=== PATIENT | male | born 1960 | race Caucasian/White ===

== ENCOUNTER 2016-10-19 15:38 | Emergency (ER) | payer OTHER ==
[~2016-10-19] VITALS: Ht 182.9 cm; Wt 103.0 kg
[2016-10-19 15:41] VITALS: TEMP 37.4; Ht 182.9 cm; Wt 103.0 kg
--- NOTE | 2016-10-19 16:10 | EMERGENCY ROOM VISIT NOTE ---
History First contact with patient: 15:45 Chief Complaint: CHEST PAIN Stated Complaint: CHEST PAINS, LEFT SIDE PAINS, COUGH Nursing Triage Summary: constant chest pain in the center that goes into the left side of ribs and into his right side of his neck today History of Present Illness The patient is a 55 year old male who presents to the Emergency Room with complaints of substernal chest pain which began yesterday. The patient reports that he first developed a dull pain in the center of his chest yesterday while he was watching TV. He reports he has had pain before which has resolved on its own, so he initially was not concerned about the pain. The patient reports that while he was at work today, he began to develop pain in the right side of his neck. The chest pain has been constant since yesterday. There is no radiation to the arms or jaw. He does report a pain in the left side of his back which is not unusual for him. The patient denies any cardiac history. He does have a family history of CHF and his father and mitral stenosis and his mother. The patient is not diabetic and he denies any hypertension or hyperlipidemia. He is otherwise healthy and does not take any medications daily. He does report a history of intermittent atrial fibrillation, but does not take any anticoagulation or medications for rate control. The patient is a smoker. He denies any specific shortness of breath, palpitations, lightheadedness, nausea, vomiting, abdominal pain, headache or neck pain. Review of Systems A complete 10-point Review of Systems was discussed with the patient, with pertinent positives and negatives listed in the History of Present Illness. All remaining Review of Systems questions can be considered negative unless otherwise specified. Social History Smoking Status: Current Every Day Smoker Marital Status: single Current/Historical Medications Scheduled Ibuprofen (Advil), 800 MG PO PRN UD Allergies Coded Allergies: No Known Allergies (Unverified , 04/22/08) Physical Exam Vital Signs Date Time Temp Pulse Resp B/P Pulse Ox O2 Delivery O2 Flow Rate FiO2 10/19/16 17:15 134/89 10/19/16 17:09 92 94 Room Air 10/19/16 16:43 93 10/19/16 15:41 37.4 98 20 149/78 95 Physical Exam VITALS: Vitals are noted on the nurse's note and reviewed by myself. Vital signs stable. GENERAL: This is a 55-year-old male, in no acute distress, nondiaphoretic, well- developed well-nourished. SKIN: Capillary reflex less than 2 seconds. HEENT: Normocephalic. PERRLA. EOMI. Nares patent. Mucous membranes moist. Neck is supple without nuchal rigidity. HEART: Regular rate and rhythm without murmurs gallops or rubs. LUNGS: Clear to auscultation bilaterally without wheezes, rales or rhonchi. No retractions or accessory muscle use. ABDOMEN: Positive bowel sounds x 4. Soft, nontender to palpation. MUSCULOSKELETAL: No tenderness to examination. NEURO: Patient was alert and oriented to person place and time. Normal sensation to light and sharp touch. Medical Decision & Procedures ER Provider Diagnostic Interpretation: CHEST ONE VIEW PORTABLE FINDINGS: The bones soft tissues and hemidiaphragms are normal. The cardiomediastinal silhouette is normal. The lungs are clear. The pulmonary vasculature is normal. IMPRESSION: Negative chest. Laboratory Results 10/19/16 15:54 Red Blood Count 5.21, Mean Corpuscular Volume 82.9, Mean Corpuscular Hemoglobin 29.2, Mean Corpuscular Hemoglobin Concent 35.2, Mean Platelet Volume 10.6, Neutrophils (%) (Auto) 75.9, Lymphocytes (%) (Auto) 13.2, Monocytes (%) (Auto) 8.9, Eosinophils (%) (Auto) 1.5, Basophils (%) (Auto) 0.2, Neutrophils # (Auto) 10.76, Lymphocytes # (Auto) 1.88, Monocytes # (Auto) 1.27, Eosinophils # (Auto) 0.22, Basophils # (Auto) 0.03 10/19/16 15:54 Test 10/19/16 15:54 10/19/16 16:15 White Blood Count 14.20 K/uL (4.8-10.8) Red Blood Count 5.21 M/uL (4.7-6.1) Hemoglobin 15.2 g/dL (14.0-18.0) Hematocrit 43.2 % (42-52) Mean Corpuscular Volume 82.9 fL (80-100) Mean Corpuscular Hemoglobin 29.2 pg (25-34) Mean Corpuscular Hemoglobin Concent 35.2 g/dl (32-36) Platelet Count 201 K/uL (130-400) Mean Platelet Volume 10.6 fL (7.4-10.4) Neutrophils (%) (Auto) 75.9 % Lymphocytes (%) (Auto) 13.2 % Monocytes (%) (Auto) 8.9 % Eosinophils (%) (Auto) 1.5 % Basophils (%) (Auto) 0.2 % Neutrophils # (Auto) 10.76 K/uL (1.4-6.5) Lymphocytes # (Auto) 1.88 K/uL (1.2-3.4) Monocytes # (Auto) 1.27 K/uL (0.11-0.59) Eosinophils # (Auto) 0.22 K/uL (0-0.5) Basophils # (Auto) 0.03 K/uL (0-0.2) RDW Standard Deviation 38.4 fL (36.4-46.3) RDW Coefficient of Variation 12.8 % (11.5-14.5) Immature Granulocyte % (Auto) 0.3 % Immature Granulocyte # (Auto) 0.04 K/uL (0.00-0.02) Anion Gap 11.0 mmol/L (3-11) Est Creatinine Clear Calc Drug Dose 96.4 ml/min Estimated GFR () 88.4 Estimated GFR (Non- 76.2 BUN/Creatinine Ratio 9.5 (10-20) Calcium Level 8.8 mg/dl (8.5-10.1) Total Bilirubin 0.6 mg/dl (0.2-1) Aspartate Amino Transf (AST/SGOT) 15 U/L (15-37) Alanine Aminotransferase (ALT/SGPT) 24 U/L (12-78) Alkaline Phosphatase 81 U/L (45-117) Total Creatine Kinase 123 U/L (39-308) Creatine Kinase MB 1.9 ng/ml (0.5-3.6) Creatine Kinase MB Ratio 1.5 (0-3.0) Total Protein 7.8 gm/dl (6.4-8.2) Albumin 3.7 gm/dl (3.4-5.0) Globulin 4.1 gm/dl (2.5-4.0) Albumin/Globulin Ratio 0.9 (0.9-2) Bedside D-Dimer 236 ng/mlFEU (0-450) Bedside Troponin I 0.000 ng/ml (0-0.045) ECG Rate (beats per minute): 100 Rhythm: normal sinus Findings: no acute ischemic change, no ectopy, other (normal axis) Comparison ECG Date: rate has increased by 34 bpm; otherwise no change from 10/22 Medical Decision Differential diagnosis includes acute coronary syndrome, pulmonary embolism, pneumothorax, pericarditis, myocarditis, endocarditis, anxiety, musculoskeletal pain, GERD, costochondritis, among others. The patient was evaluated as above. Labs were drawn and IV access was obtained. Imaging studies were performed and read by radiology as above. The patient was reassessed multiple times during their stay in the emergency department and remained in stable condition. The patient is a 55-year-old male who presents today complaining of substernal chest pain. Labs revealed no anemia or concerning electrolyte abnormalities. He does have a mild leukocytosis of unclear significance. The patient is afebrile and not complaining of flulike symptoms or cough. EKG was interpreted by myself and showed a normal sinus rhythm without evidence of ischemia or ectopy. Chest x-ray was unremarkable. Troponin was not elevated. D-dimer was not elevated. The patient has no significant cardiac history and does not have significant risk factors. His HEART score was calculated and was found to be 2 , putting the patient at low risk for cardiac event. I did discuss options of care with the patient including observation for further testing versus discharge home with close follow-up with his primary care provider. The patient preferred discharged home and I do feel this is reasonable. He was instructed on worrisome symptoms which would necessitate return to the emergency department sooner. He will follow-up with his primary care provider this week. Based on the patient's presentation, lab results, and imaging studies, I feel the patient is stable for outpatient treatment. Discharge instructions were reviewed with the patient. The patient's case was reviewed with Dr. Patel, ED attending physician, who agreed with my assessment and treatment plan. The patient verbalized understanding of my assessment and treatment plan and was discharged home in good condition. Impression Primary Impression: Substernal precordial chest pain Departure Information Dispostion Home / Self-Care Condition GOOD Referrals No Doctor, Assigned (PCP) Patient Instructions My [facility] Additional Instructions You have been treated in the Emergency Department for your Chest Pain. Laboratory results and Imaging Studies have ruled out any acute cardiac or pulmonary cause of your chest pain. For pain control, you can use the following [id number]-aej-[id number] medicines (if >12 yo): - Regular strength (325mg/tab) Tylenol (acetaminophen) 2 tabs every 4-6 hours as needed. Do not exceed 12 tablets in a 24 hour period. Avoid taking more than 4 grams (4000 mg) of Tylenol per day. This includes any other sources of acetaminophen you may take on a regular basis. - Regular strength (200 mg/tab) Advil (ibuprofen) 1-2 tabs every 4-6 hours as needed. Do not exceed a dose of 3200 mg per day. You should schedule a follow-up appointment with your Primary Care Provider in 2 -3 days for further evaluation from today's Emergency Department visit. Return to the Emergency Department if your current symptoms worsen despite treatment course outlined above, or if you develop any of the following symptoms : worsening chest pain, associated jaw/arm pain, nausea, dizziness, shortness of breath, bloody cough, or fainting.
[2016-10-19 16:12] LABS: BASO % 0.2 %; BASO ABS # 0.03 K/uL (0-0.2); COMPLETE YES; EOS % 1.5 %; HEMATOCRIT 43.2 % (42-52); IG% 0.3 %; LYMPH % 13.2 %; LYMPH ABS # 1.88 K/uL (1.2-3.4); MEAN CELL VOLUME 82.9 fL (80-100); MEAN CORPUSCULAR HEMOGLOBIN 29.2 pg (25-34); MEAN CORPUSCULAR HGB CONC 35.2 g/dl (32-36); MEAN PLATELET VOLUME 10.6 fL (7.4-10.4); MONO % 8.9 %; NEUT % 75.9 %; PLATELET COUNT 201 K/uL (130-400); RED BLOOD COUNT 5.21 M/uL (4.7-6.1)
--- NOTE | 2016-10-19 16:14 | DIAGNOSTIC IMAGING REPORT ---
CHEST ONE VIEW PORTABLE CLINICAL HISTORY: substernal chest pain dyspnea COMPARISON STUDY: No previous studies for comparison. FINDINGS: The bones soft tissues and hemidiaphragms are normal. The cardiomediastinal silhouette is normal. The lungs are clear. The pulmonary vasculature is normal. IMPRESSION: Negative chest. Electronically signed by: Benjamín Valero M.D. 10/19/2016 4:13 PM Dictated Date/Time: 10/19/2016 4:12 PM
[2016-10-19 16:26] LABS: BUN/CREATININE RATIO 9.5 (10-20); CALCIUM 8.8 mg/dl (8.5-10.1); CREATININE 1.1 mg/dl (0.60-1.40); POTASSIUM 3.8 mmol/L (3.5-5.1)
[2016-10-19] MEDS ORDERED: IBUP-1050 PO (16:29)
[2016-10-19 16:30] LABS: ALB/GLOB RATIO 0.9 (0.9-2); CKMB/CK RATIO 1.5 (0-3.0)
[2016-10-19 17:09] VITALS: PULSE 92; O2SAT 94
[2016-10-19 17:15] VITALS: BP 134/89
== END 2016-10-19 17:16 | disposition home or self-care (01) ==
LOC: C.EDB 15:39
DX: R07.2 Precordial pain (principal); F17.200 Nicotine dependence, unspecified, uncomplicated

== ENCOUNTER 2019-12-29 23:52 | Inpatient (IN) ==
[2019-12-30] MEDS ORDERED: fentaNYL citrate 100 MCG/2 ML VIAL IV STA ×2 (00:10→01:57)
--- NOTE | 2019-12-30 00:17 | Emergency Department Note ---
History of Present Illness General Chief complaint: Chest Pain Stated complaint: CHEST PAIN Time Seen by Provider: 12/30/19 00:01 History of Present Illness This is a 59-year-old male that presents to the emergency department via ambulance with complaints of "chest pain". Patient notes that he woke up yesterday around 3-4 AM and had midsternal chest pain. It does not radiate. It was a 7/10. It then persisted throughout the day and then this evening an ambulance was summoned and in route he was given a full-strength aspirin as well as 2 nitroglycerin. The pain was alleviated with nitroglycerin. He notes that the pain then progressed to a 4 out of 10 and is now currently a 6/10. He denies any personal history of PR or PE. He denies any family history of PR prior to age 65. No fevers, chills or cough. He denies any excessive alcohol use. 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 Beliefs That Will Affect Care: None Current Living Situation: Alone Other Information That Helps Us Care for You: No Feels Safe at Home: Yes Safety Concerns: Feels Safe At This Time Smoking Status: Current every day smoker Tobacco Type: cigarettes ; Hx Alcohol Use: No Hx Substance Use: No Review of Systems A total of 10 systems reviewed and were otherwise negative Physical Exam Vital Signs Vital Signs - 24 hr 12/30/19 00:14 12/30/19 00:25 12/30/19 01:18 Temperature 36.8 C Temperature Source Oral Pulse Rate 80 83 Pulse Rate [Right Finger] 74 Respiratory Rate 18 21 18 Respiratory Depth Normal Normal Blood Pressure 120/73 127/73 Blood Pressure [Right Arm] 127/75 Blood Pressure Mean 88 85 Blood Pressure Mean [Right Arm] 92 Blood Pressure Position Lying Blood Pressure Position [Right Arm] Lying Pulse Oximetry 95 95 95 Oxygen Delivery Method Room Air Room Air Sepsis Recent Fever Within 48 Hours No Sepsis New/Unexplained Change in Mental Status No Sepsis Action Taken by Nursing No Action Required 12/30/19 02:58 Temperature Temperature Source Pulse Rate Pulse Rate [Right Finger] 70 Respiratory Rate 16 Respiratory Depth Normal Blood Pressure Blood Pressure [Right Arm] 123/69 Blood Pressure Mean Blood Pressure Mean [Right Arm] 87 Blood Pressure Position Blood Pressure Position [Right Arm] Lying Pulse Oximetry 95 Oxygen Delivery Method Room Air Sepsis Recent Fever Within 48 Hours Sepsis New/Unexplained Change in Mental Status Sepsis Action Taken by Nursing VITAL SIGNS - Vital signs and nursing notes were reviewed. Stable and afebrile. GENERAL -59-year-old male appearing his stated age who is in no acute distress. Communicates well with provider and answers questions appropriately. SKIN - Without rashes. No meningeal or petechial rash. HEAD - NC/AT. EYES - PERRL with EOMI bilaterally. Sclera anicteric. EARS - No deformities of external structures noted on gross examination bilaterally. NOSE - Midline and without cyanosis. No epistaxis or purulent drainage noted. MOUTH/OROPHARYNX - Without perioral cyanosis. NECK - Neck with FROM. No nuchal rigidity. LUNGS - Chest wall symmetric without accessory muscle use, intercostals retracti ons, or central cyanosis. Normal vesicular breath sounds CTA B/L. No wheezes, rales, or rhonchi appreciated. CARDIAC - RRR with S1/S2. No murmur, rubs, or gallops appreciated. ABDOMEN - Abdominal contour normal without pulsations or visible masses. BS normoactive all four quadrants. No tenderness, palpable masses, hepatosplenomegaly, or ascites noted. EXTREMITIES - No clubbing or peripheral cyanosis. No pretibial edema present. +5/5 strength noted in UE/LE bilaterally. NEUROLOGIC - Cranial nerves II through XII grossly intact. PSYCH - A&O, and cooperates fully with examiner. Pt is very pleasant and interacts well with examiner. Course Administered Medications Ioversol (Optiray 320 100ml) 93 ml IV ONCE PRN PRN Reason: Interaction Checking Stop: 01/03/20 04:03 Last Admin: 12/30/19 04:04 Dose: 93 ml Documented by: [id number] Discontinued Medications Fentanyl Citrate (Fentanyl Citrate) 50 mcg IV NOW STA Stop: 12/30/19 00:11 Last Admin: 12/30/19 00:24 Dose: 50 mcg Documented by: [id number] Fentanyl Citrate (Fentanyl Citrate) 50 mcg IV NOW STA Stop: 12/30/19 01:58 Last Admin: 12/30/19 02:02 Dose: 50 mcg Documented by: [id number] Medical Decision Making Laboratory Data Result diagrams: 12/29/19 23:45 12/29/19 23:45 Lab Results 12/29/19 12/29/19 12/29/19 Range/Units 23:45 23:45 23:45 WBC 11.66 H (4.8-10.8) K/uL RBC 5.35 (4.7-6.1) M/uL Hgb 15.4 (14.0-18.0) g/dL Hct 45.8 (42-52) % MCV 85.6 (80-100) fL MCH 28.8 (25-34) pg MCHC 33.6 (32-36) g/dL RDW Std Deviation 39.8 (36.4-46.3) fL RDW Coeff of Kosta 12.7 (11.5-14.5) % Plt Count 217 (130-400) K/uL MPV 10.6 H (7.4-10.4) fL Immature Gran % (Auto) 0.2 % Neut % (Auto) 76.5 % Lymph % (Auto) 13.7 % Caroline % (Auto) 7.3 % Eos % (Auto) 2.1 % Baso % (Auto) 0.2 % Immature Gran # (Auto) 0.02 (0.00-0.02) K/uL Neut # (Auto) 8.93 H (1.4-6.5) K/uL Lymph # (Auto) 1.60 (1.2-3.4) K/uL Caroline # (Auto) 0.85 H (0.11-0.59) K/uL Eos # (Auto) 0.24 (0-0.5) K/uL Baso # (Auto) 0.02 (0-0.2) K/uL PT 10.6 (9.0-12.0) Seconds INR 1.0 (0.9-1.1) APTT 33.0 H (21.0-31.0) Seconds PTT Ratio 1.2 D-Dimer 440 (0-500) ug/L FEU Sodium 138 (136-145) mmol/L Potassium 3.9 (3.5-5.1) mmol/L Chloride 105 (98-107) mmol/L Carbon Dioxide 24 (21-32) mmol/L Anion Gap 9.0 (3-11) BUN 12 (7-18) mg/dl Creatinine 0.96 (0.6-1.4) mg/dl Est Cr Clr Drug Dosing 106.4 ml/min Est GFR ( Amer) 101.3 Est GFR (Non-Af Amer) 87.4 BUN/Creatinine Ratio 12.9 (10-20) Glucose 140 H (70-99) mg/dl Calcium 8.8 (8.5-10.1) mg/dl Magnesium 2.1 (1.8-2.4) mg/dl Total Bilirubin 0.5 (0.2-1) mg/dl AST 22 (15-37) U/L ALT 28 (12-78) U/L Alkaline Phosphatase 82 (45-117) U/L Troponin I < 0.015 (0-0.045) ng/ml Total Protein 7.4 (6.4-8.2) gm/dl Albumin 3.6 (3.4-5.0) gm/dl Globulin 3.8 (2.5-4.0) gm/dl Albumin/Globulin Ratio 0.9 (0.9-2) Lipase 3666 H (73-393) U/L TSH 1.090 (0.300-4.500) uIu/ml Urine Color Urine Appearance (Clear) Urine pH (4.5-7.5) Ur Specific [place] (1.000-1.030) Urine Protein (Negative) Urine Glucose (UA) (Negative) Urine Ketones (Negative) Urine Blood (Negative) Urine Nitrite (Negative) Urine Bilirubin (Negative) Urine Urobilinogen (Negative) Ur Leukocyte Esterase (Negative) 12/30/19 Range/Units 02:25 WBC (4.8-10.8) K/uL RBC (4.7-6.1) M/uL Hgb (14.0-18.0) g/dL Hct (42-52) % MCV (80-100) fL MCH (25-34) pg MCHC (32-36) g/dL RDW Std Deviation (36.4-46.3) fL RDW Coeff of Kosta (11.5-14.5) % Plt Count (130-400) K/uL MPV (7.4-10.4) fL Immature Gran % (Auto) % Neut % (Auto) % Lymph % (Auto) % Caroline % (Auto) % Eos % (Auto) % Baso % (Auto) % Immature Gran # (Auto) (0.00-0.02) K/uL Neut # (Auto) (1.4-6.5) K/uL Lymph # (Auto) (1.2-3.4) K/uL Caroline # (Auto) (0.11-0.59) K/uL Eos # (Auto) (0-0.5) K/uL Baso # (Auto) (0-0.2) K/uL PT (9.0-12.0) Seconds INR (0.9-1.1) APTT (21.0-31.0) Seconds PTT Ratio D-Dimer (0-500) ug/L FEU Sodium (136-145) mmol/L Potassium (3.5-5.1) mmol/L Chloride (98-107) mmol/L Carbon Dioxide (21-32) mmol/L Anion Gap (3-11) BUN (7-18) mg/dl Creatinine (0.6-1.4) mg/dl Est Cr Clr Drug Dosing ml/min Est GFR ( Amer) Est GFR (Non-Af Amer) BUN/Creatinine Ratio (10-20) Glucose (70-99) mg/dl Calcium (8.5-10.1) mg/dl Magnesium (1.8-2.4) mg/dl Total Bilirubin (0.2-1) mg/dl AST (15-37) U/L ALT (12-78) U/L Alkaline Phosphatase (45-117) U/L Troponin I (0-0.045) ng/ml Total Protein (6.4-8.2) gm/dl Albumin (3.4-5.0) gm/dl Globulin (2.5-4.0) gm/dl Albumin/Globulin Ratio (0.9-2) Lipase (73-393) U/L TSH (0.300-4.500) uIu/ml Urine Color Yellow Urine Appearance Clear (Clear) Urine pH 5.0 (4.5-7.5) Ur Specific [place] 1.023 (1.000-1.030) Urine Protein Negative (Negative) Urine Glucose (UA) Negative (Negative) Urine Ketones Negative (Negative) Urine Blood Negative (Negative) Urine Nitrite Negative (Negative) Urine Bilirubin Negative (Negative) Urine Urobilinogen Negative (Negative) Ur Leukocyte Esterase Negative (Negative) Imaging Data My Impression: Interstitial prominence noted in the lower lobes. No definite infiltrate or consolidation. No pneumothorax. Radiologist's Impression: US GALLBLADDER: No stones in the gallbladder. No acute cholecystitis. No biliary dilatation. Hepatic steatosis. Unremarkable right kidney. Pancreas obscured by bowel gas. Radiologist: Daniel Ferrer MD Study ready at 01:50 and initial results transmitted at 01:57 MDM Narrative Patient was seen and evaluated as above in room C5. Review was performed of nursing notes and vital signs. I did review pertinent previous visits and patient history. After obtaining a thorough history and physical examination the above work up was performed. He presents to us today with chest pain. Initially concern was for ACS given the presentation however other etiologies were certainly entertained. EKG was performed on arrival and reveals normal sinus rhythm at a rate of [address]pm[address] elevation. No evidence of PR. Troponin is negative. Mild leukocytosis of 11.66. No anemia. D-dimer within normal limits. There is elevation of the patient's lipase. No evidence of kidney or liver failure. Urinalysis does not suggest infection. Patient denies any excessive alcohol use. He does note a fatty diet. Given his presentation clinically I believe he has acute pancreatitis and believe that further evaluation in the inpatient setting is warranted. Case discussed with the attending physician as well as the hospitalist. Please refer to further documentation regarding his stay. He was medicated here with IV fentanyl for his discomfort. He was also hydrated upon arrival. An order was placed for continuous cardiac monitoring. The monitor shows a rate of 79 with sinus rhythm. GCS: 15 In the evaluation and treatment of this patient, the following differential diagnoses were considered: PR, ASC, Dysrhythmia, Angina, Mediastinitis, pancreatitis, GERD, Esophagitis, PE, Pneumonia, Bronchitis, Costochondritis, Rib Fracture, Zoster. Impression & Plan Substernal chest pain, Acute pancreatitis Discharge Plan Visit Data *Final* Discharge Date/Time: 12/30/19 03:45 Chief Complaint: Chest Pain Stated Complaint: CHEST PAIN ED Provider: Kate Conley ED Midlevel Provider: Giuseppe Merritt Discharge Problem: Substernal chest pain, Acute pancreatitis Patient Disposition: Admitted As Inpatient Condition: Good Discharge Instructions Interventions: ED Discharge Assessment Last Done: 12/30/19 03:45
[2019-12-30 00:31] LABS: Basophils # (auto) 0.02 K/uL (0-0.2); Basophils % (auto) 0.2 %; Eosinophils # (auto) 0.24 K/uL (0-0.5); Eosinophils % (auto) 2.1 %; Hematocrit (blood only) 45.8 % (42-52); Hemoglobin 15.4 g/dL (14.0-18.0); Immature Granulocytes # (auto) 0.02 K/uL (0.00-0.02); Immature Granulocytes % (auto) 0.2 %; Lymphocytes % (auto) 13.7 %; Mean Corpuscular Hemoglobin 28.8 pg (25-34); Mean Corpuscular Hgb Conc 33.6 g/dL (32-36); Mean Corpuscular Volume 85.6 fL (80-100); Mean Platelet Volume 10.6 fL (7.4-10.4); Monocytes # (auto) 0.85 K/uL (0.11-0.59); Monocytes % (auto) 7.3 %; Neutrophils # (auto) 8.93 K/uL (1.4-6.5); Neutrophils % (auto) 76.5 %; Platelet Count 217 K/uL (130-400); RDW Coefficient of Variation 12.7 % (11.5-14.5); RDW Standard Deviation 39.8 fL (36.4-46.3); Red Blood Count 5.35 M/uL (4.7-6.1); White Blood Count 11.66 K/uL (4.8-10.8)
[2019-12-30 00:51] LABS: D Dimer 440 ug/L FEU (0-500); Partial Thromboplastin Ratio 1.2; Prothrombin Time 10.6 Seconds (9.0-12.0)
[2019-12-30 01:07] LABS: Alanine Aminotransferase 28 U/L (12-78); Albumin Globulin Ratio 0.9 (0.9-2); Albumin Level 3.6 gm/dl (3.4-5.0); Alkaline Phosphatase 82 U/L (45-117); Aspartate Aminotransferase 22 U/L (15-37); BUN Creatinine Ratio 12.9 (10-20); Bilirubin,Total 0.5 mg/dl (0.2-1); Blood Urea Nitrogen 12 mg/dl (7-18); Calcium 8.8 mg/dl (8.5-10.1); Carbon Dioxide 24 mmol/L (21-32); Chloride 105 mmol/L (98-107); Creatinine Clr Calc Pharmacy 106.4 ml/min; Est GFR (African American) 101.3; Est GFR (Non-African American) 87.4; Globulin 3.8 gm/dl (2.5-4.0); Glucose 140 mg/dl (70-99); Lipase 3666 U/L (73-393); Magnesium 2.1 mg/dl (1.8-2.4); Potassium 3.9 mmol/L (3.5-5.1); Sodium 138 mmol/L (136-145); Total Protein 7.4 gm/dl (6.4-8.2); Troponin I < 0.015 ng/ml (0-0.045)
[2019-12-30 02:32] LABS: Appearance Urine Clear (Clear); Bilirubin Urine Negative (Negative); Blood Urine Negative (Negative); Color Urine Yellow; Glucose Urine UA Negative (Negative); Ketones Urine Negative (Negative); Leukocyte Esterase Urine Negative (Negative); Nitrite Urine Negative (Negative); Protein Urine Negative (Negative); Specific Gravity Urine 1.023 (1.000-1.030); Urobilinogen Urine Negative (Negative)
[2019-12-30] MEDS ORDERED: IOVERSOL 100ml IV PRN (04:04)
[2019-12-30] MEDS ORDERED: ACETAMINOPHEN 325 MG TAB PO PRN (04:23)
[2019-12-30] MEDS ORDERED: NITROGLYCERIN SL 0.4 MG/TAB TAB SL PRN (04:23)
[2019-12-30] MEDS ORDERED: ONDANSETRON INJ 2 MG/ML 2 ML VIAL IV PRN (04:23)
[2019-12-30] MEDS ORDERED: POLYETHYLENE (MIRALAX) 17 GM PACK PO PRN (04:23)
[2019-12-30] MEDS: LACTATED RINGER'S 1,000 ML IV SCH ×3 (04:59→14:30)
[2019-12-30] MEDS: HYDROmorphone INJ 0.5 MG/0.5 ML SYR IV PRN ×2 (05:07→08:27)
[2019-12-30 07:48] LABS: Basophils # (auto) 0.03 K/uL (0-0.2); Basophils % (auto) 0.2 %; Eosinophils # (auto) 0.29 K/uL (0-0.5); Eosinophils % (auto) 2.4 %; Hematocrit (blood only) 42.7 % (42-52); Hemoglobin 14.5 g/dL (14.0-18.0); Immature Granulocytes # (auto) 0.02 K/uL (0.00-0.02); Immature Granulocytes % (auto) 0.2 %; Mean Corpuscular Hemoglobin 28.9 pg (25-34); Mean Corpuscular Volume 85.1 fL (80-100); Mean Platelet Volume 10.4 fL (7.4-10.4); Monocytes # (auto) 1.31 K/uL (0.11-0.59); Monocytes % (auto) 10.8 %; Neutrophils # (auto) 8.79 K/uL (1.4-6.5); Neutrophils % (auto) 72.4 %; Platelet Count 202 K/uL (130-400); RDW Coefficient of Variation 12.9 % (11.5-14.5); RDW Standard Deviation 39.8 fL (36.4-46.3); Red Blood Count 5.02 M/uL (4.7-6.1); White Blood Count 12.14 K/uL (4.8-10.8)
[2019-12-30 08:17] LABS: BUN Creatinine Ratio 12.5 (10-20); Calcium 8.4 mg/dl (8.5-10.1); Creatinine Clr Calc Pharmacy 116.5 ml/min; Est GFR (Non-African American) 95.8; Magnesium 2.2 mg/dl (1.8-2.4); Potassium 3.9 mmol/L (3.5-5.1)
[2019-12-30] MEDS ORDERED: PERFLUTREN LIPID MICROSPHERE (DEFINITY) IV ONE (08:21)
--- NOTE | 2019-12-30 08:28 | CT Scan Report ---
ABDOMEN AND PELVIS CT WITH IV CONTRAST CT DOSE: 879.43 mGy.cm HISTORY: Acute mid abdominal pain with elevated lipase. pancreatitis? elevated lipase. TECHNIQUE: Multiaxial CT images of the abdomen and pelvis were performed following the IV administrat ion of 93 cc of Optiray 320, A dose lowering technique was utilized adhering to the principles of [place]. COMPARISON STUDY: CT abdomen and pelvis 01/31/2012 FINDINGS: Mild groundglass bibasilar opacities suggest atelectasis. There are a few solid nodules of the subple ural left lower lobe measuring up to 3 mm which appear unchanged from 2012 and are likely benign. The re is no pneumatosis or pneumoperitoneum. The imaged inferior cardiac chambers are unremarkable. Sple en, adrenal glands and gallbladder are unremarkable. Liver is also within normal limits. There is mil d interstitial and peripancreatic edema involving the pancreatic tail. No pancreatic ductal dilation, mass, necrosis, peripancreatic collection or obstructing stone identified. No biliary ductal dilatio n. Kidneys enhance symmetrically. There are a few subcentimeter hypodensities throughout the right kidne y which are too small to characterize however suggests probable cysts. Urinary bladder is unremarkabl e. Prostate is within normal limits. There is a small fat filled right inguinal hernia. A portion of the urinary bladder partially extends into the hernia ostium. Moderate to severe mixed plaque of the abdominal aorta without aneurysm. Tiny hiatal hernia with mild distal esophageal wall thickening. No bowel obstruction. Postoperative c hanges of prior partial colectomy with resection sutures noted within the sigmoid. Diverting right lo wer quadrant colostomy. Mild stranding at the colostomy site is nonspecific. There are multiple patho logically enlarged lymph nodes of the perirectal distribution and sigmoid mesocolon measuring up to 2 .5 x 0.9 cm with associated perirectal stranding. A few tiny nonenlarged as well as prominent lymph n odes/nodular foci are seen throughout the mid and lower mesentery. Diastases recti. Bones appear inta ct. No suspicious lytic or blastic osseous lesions. IMPRESSION: 1. Findings compatible with acute interstitial edematous pancreatitis involving the pancreatic tail. No evidence of pancreatic necrosis, acute pancreatic fluid collection, pancreatic ductal dilation, ob structing mass or stone. 2. Postoperative changes of prior partial colectomy with right lower quadrant diverting colostomy. No bowel obstruction. 3. Nonspecific perirectal stranding is noted in addition to multiple pathologically enlarged and prom inent lymph nodes of the perirectal fat, lower sigmoid mesocolon and lower mesentery. This pattern of disease is typically seen in cases of primary colonic neoplasm lymphatic metastasis. Close follow-up is needed. 4. Tiny hiatal hernia with mild distal esophageal wall thickening. ACT 112: Negative or not required by law. The above report was generated using voice recognition software. It may contain grammatical, syntax o r spelling errors. Electronically signed by: Fahad Atkins M.D. 12/30/2019 8:26 AM
--- NOTE | 2019-12-30 08:40 | XRay Report ---
XR chest 1V portable HISTORY: 59 years-old Male chest pain acute atypical chest pain COMPARISON: CT abdomen and pelvis of same day, chest radiograph 10/19/2016 TECHNIQUE: Portable AP view of the chest FINDINGS: Cardiomediastinal and hilar silhouettes are within normal limits. Mild interstitial coarsening of the mid and lower lung zones appears chronic. There is no pneumothorax, pleural effusion, airspace conso lidation or overt pulmonary edema. Bones of the chest appear grossly intact. IMPRESSION: No acute process. ACT 112: Negative or not required by law. The above report was generated using voice recognition software. It may contain grammatical, syntax o r spelling errors. Electronically signed by: Fahad Atkins M.D. 12/30/2019 8:39 AM
--- NOTE | 2019-12-30 08:45 | Ultrasound Report ---
US gallbladder HISTORY: 59 years-old Male Chest pain, Lipase elevation acute atypical chest pain with acute pancrea titis COMPARISON: CT abdomen and pelvis of same day TECHNIQUE: Multiple real-time sonographic images of the abdominal right upper quadrant were obtained assessing grayscale appearance and color flow FINDINGS: The pancreas is obscured by bowel gas. The liver is unremarkable without focal mass or intrahepatic b iliary ductal dilation. The gallbladder is unremarkable without shadowing cholelithiasis, pericholecy stic fluid or wall thickening. Sonographic Henao sign reported as negative. Common bile duct is norm al, 4 mm. Imaged right kidney is unremarkable without hydronephrosis. IMPRESSION: 1. Unremarkable right upper quadrant abdominal ultrasound. 2. Pancreas is obscured by bowel gas. Please refer to CT abdomen and pelvis of same day for further d etails. ACT 112: Negative or not required by law. The above report was generated using voice recognition software. It may contain grammatical, syntax o r spelling errors. Electronically signed by: Fahad Atkins M.D. 12/30/2019 8:44 AM
--- NOTE | 2019-12-30 09:48 | Gastrointestinal Consultation ---
Date of Consultation December 30, 2019 Assessment & Plan (1) Acute pancreatitis: Unclear etiology,no gallstones. No excessive alcohol use but still can be a potential etiology. Other DDx is hypertriglyceridemia. Currently mild and improving. Recommend: Clear liquids and advance as tolerated. Needs EUS as OP in 4 weeks. At the same time will do Rectal EUS with FNA of the LN and also colonoscopy through the colostomy. Recall GI if needed. (2) Enlarged lymph node: History of Present Illness Attending Physician: Frida Blair MD 59 years old male patient with medical history of left hemicolectomy in 2011 due to complex diverticulitis, developed anastomotic leak requiring laparotomy with right sided end colostomy, later failed attempted reversal of the ostomy due to adhesions, presented to the hospital with left sided chest pain, LUQ abdominal pain, started a day ago, constant, nonradiating, associated with nausea but no vomiting, also has heartburn, Cardiac work up negative for ACS. Labs showed elevated lipase with normal LFTs, sono no gallstones, CT scan showed acute pancreatitis in the tail. Also incidentally has enlarged perirectal LNs. Feels well now, no pain. He drinks wine regularly. Labs showed elevated triglycerids. 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 Beliefs That Will Affect Care: None Current Living Situation: Alone Other Information That Helps Us Care for You: No Feels Safe at Home: Yes Safety Concerns: Feels Safe At This Time Smoking Status: Current every day smoker Tobacco Type: cigarettes ; Hx Alcohol Use: No Hx Substance Use: No Review of Systems Constitutional: no fever, no chills, no fatigue and no weight loss Eyes: no eye pain and no worsening vision Ear, Nose, Mouth, Throat: no tinnitus, no dizziness, no nasal discharge and no epistaxis Respiratory: no cough, no dyspnea, no dyspnea on exertion and no wheezing Cardiovascular: no chest pain, no orthopnea, no palpitations and no edema Gastrointestinal: as per Subjective / HPI Musculoskeletal: no stiffness and no myalgia Neurologic: no localized weakness, no paralysis, no tremor(s) and no headache(s) Endocrine: no polydipsia and no polyuria Hematologic / Lymphatic: no easy bleeding and no night sweats Physical Exam Constitutional: + well hydrated, cooperative and comfortable Eyes: PERRL, conjunctivae normal, anicteric sclerae ENMT: external ear and nose normal, oropharynx normal Neck: normal visual inspection and trachea midline Respiratory: normal respiratory effort, lungs clear to auscultation Auscultation: no wheezes Cardiovascular: RRR, no murmur, no edema Gastrointestinal (Abdomen): normal bowel sounds, soft, nontender, no hepatosplenomegaly Musculoskeletal: no cyanosis or clubbing, extremities motor strength 5/5 Skin: no rashes, warm and dry Neurologic: awake; no focal motor deficits Motor/Sensory: no tremor Results & Data ([facility]) Vital Signs (Past 12 Hours) Vital Signs Temp Pulse Pulse Resp BP BP Pulse Ox 12/30/19 07:34 69 12/30/19 07:22 36.6 C 78 18 134/73 93 12/30/19 04:22 36.5 C 79 20 147/80 H 97 12/30/19 03:39 72 20 131/74 95 12/30/19 03:08 70 18 117/80 12/30/19 02:58 70 16 123/69 12/30/19 01:18 74 18 127/75 12/30/19 00:25 83 21 127/73 12/30/19 00:14 36.8 C 80 18 120/73 95 Laboratory Results Laboratory Results - last 24 hr 12/29/19 12/29/19 12/29/19 23:45 23:45 23:45 WBC 11.66 H RBC 5.35 Hgb 15.4 Hct 45.8 MCV 85.6 MCH 28.8 MCHC 33.6 RDW Std Deviation 39.8 RDW Coeff of Kosta 12.7 Plt Count 217 MPV 10.6 H Immature Gran % (Auto) 0.2 Neut % (Auto) 76.5 Lymph % (Auto) 13.7 [place] % (Auto) 7.3 Eos % (Auto) 2.1 Baso % (Auto) 0.2 Immature Gran # (Auto) 0.02 Neut # (Auto) 8.93 H Lymph # (Auto) 1.60 [place] # (Auto) 0.85 H Eos # (Auto) 0.24 Baso # (Auto) 0.02 PT 10.6 INR 1.0 APTT 33.0 H PTT Ratio 1.2 D-Dimer 440 Sodium 138 Potassium 3.9 Chloride 105 Carbon Dioxide 24 Anion Gap 9.0 BUN 12 Creatinine 0.96 Est Cr Clr Drug Dosing 106.4 Est GFR ( Amer) 101.3 Est GFR (Non-Af Amer) 87.4 BUN/Creatinine Ratio 12.9 Glucose 140 H Calcium 8.8 Magnesium 2.1 Total Bilirubin 0.5 AST 22 ALT 28 Alkaline Phosphatase 82 Troponin I < 0.015 Total Protein 7.4 Albumin 3.6 Globulin 3.8 Albumin/Globulin Ratio 0.9 Triglycerides Cholesterol LDL Cholesterol, Calc VLDL Cholesterol, Calc HDL Cholesterol Cholesterol/HDL Ratio Lipase 3666 H TSH 1.090 Urine Color Urine Appearance Urine pH Ur Specific [place] Urine Protein Urine Glucose (UA) Urine Ketones Urine Blood Urine Nitrite Urine Bilirubin Urine Urobilinogen Ur Leukocyte Esterase 12/30/19 12/30/19 12/30/19 02:25 07:11 07:11 WBC 12.14 H RBC 5.02 Hgb 14.5 Hct 42.7 MCV 85.1 MCH 28.9 MCHC 34.0 RDW Std Deviation 39.8 RDW Coeff of K[place] 12.9 Plt Count 202 MPV 10.4 Immature Gran % (Auto) 0.2 Neut % (Auto) 72.4 Lymph % (Auto) 14.0 [place] % (Auto) 10.8 Eos % (Auto) 2.4 Baso % (Auto) 0.2 Immature Gran # (Auto) 0.02 Neut # (Auto) 8.79 H Lymph # (Auto) 1.70 [place] # (Auto) 1.31 H Eos # (Auto) 0.29 Baso # (Auto) 0.03 PT INR APTT PTT Ratio D-Dimer Sodium Potassium Chloride Carbon Dioxide Anion Gap BUN Creatinine Est Cr Clr Drug Dosing Est GFR ( Amer) Est GFR (Non-Af Amer) BUN/Creatinine Ratio Glucose Calcium Magnesium Total Bilirubin AST ALT Alkaline Phosphatase Troponin I < 0.015 Total Protein Albumin Globulin Albumin/Globulin Ratio Triglycerides Cholesterol LDL Cholesterol, Calc VLDL Cholesterol, Calc HDL Cholesterol Cholesterol/HDL Ratio Lipase TSH Urine Color Yellow Urine Appearance Clear Urine pH 5.0 Ur Specific [place] 1.023 Urine Protein Negative Urine Glucose (UA) Negative Urine Ketones Negative Urine Blood Negative Urine Nitrite Negative Urine Bilirubin Negative Urine Urobilinogen Negative Ur Leukocyte Esterase Negative 12/30/19 07:11 WBC RBC Hgb Hct MCV MCH MCHC RDW Std Deviation RDW Coeff of Kosta Plt Count MPV Immature Gran % (Auto) Neut % (Auto) Lymph % (Auto) [place] % (Auto) Eos % (Auto) Baso % (Auto) Immature Gran # (Auto) Neut # (Auto) Lymph # (Auto) [place] # (Auto) Eos # (Auto) Baso # (Auto) PT INR APTT PTT Ratio D-Dimer Sodium 137 Potassium 3.9 Chloride 105 Carbon Dioxide 25 Anion Gap 7.0 BUN 11 Creatinine 0.87 Est Cr Clr Drug Dosing 116.5 Est GFR ( Amer) 111.0 Est GFR (Non-Af Amer) 95.8 BUN/Creatinine Ratio 12.5 Glucose 103 H Calcium 8.4 L Magnesium 2.2 Total Bilirubin AST ALT Alkaline Phosphatase Troponin I Total Protein Albumin Globulin Albumin/Globulin Ratio Triglycerides 385 H Cholesterol 154 LDL Cholesterol, Calc 52 VLDL Cholesterol, Calc 77 HDL Cholesterol 25 Cholesterol/HDL Ratio 6 Lipase TSH Urine Color Urine Appearance Urine pH Ur Specific [place] Urine Protein Urine Glucose (UA) Urine Ketones Urine Blood Urine Nitrite Urine Bilirubin Urine Urobilinogen Ur Leukocyte Esterase
[2019-12-30] MEDS ORDERED: PANTOprazole 40 MG in SYRINGE 0 ML IV SCH (11:00)
--- NOTE | 2019-12-30 11:03 | History and Physical Report ---
DATE OF ADMISSION: 12/30/2019 CHIEF COMPLAINT: Chest pain. HISTORY OF PRESENT ILLNESS: This is a 59-year-old male with past medical history significant for diverticulitis of the colon , with history of colostomy, bilateral carpal tunnel syndrome, presents with chest pain in the lower part of the chest. It was 24 hours ago last night. He noted his pain is sharp pain associated with nausea. It was of 8/10 in severity and was not getting better, so came to the ER. Currently after pain medications, his pain is improved. Denies any shortness of breath. No cough, no fever, no chills, no headache, no dizziness, no earache, no runny nose, no sore throat, no difficulties, no dysphagia. Otherwise, active. Normal bowel and bladder movements. No blood in stools or black stools. No hematuria, no burning micturition, no swelling in the legs. Currently resting comfortable and hemodynamically stable. ALLERGIES: No known drug allergies. PAST MEDICAL HISTORY: As mentioned above. PAST SURGICAL HISTORY: Bilateral carpal tunnel surgery, closure of enterostomy of large intestine resection, colonoscopy, exploratory laparotomy, IR drainage of the abscess. MEDICATIONS: Currently none. FAMILY HISTORY: Significant for mother had cancer, diabetes, heart disorder, CVA. Father had sudden of unknown cause. SOCIAL HISTORY: Single, smokes 1 pack a day for 43 years. Alcohol one shot of christopher aleyda on Sundays. No drug use. REVIEW OF SYMPTOMS: As per HPI. Rest of review of symptoms negative. PHYSICAL EXAMINATION: GENERAL: The patient is obese, not in acute distress. VITAL SIGNS: Temperature 36.8, pulse 70, respiratory rate 16, blood pressure 117/80, oxygen 95% room air. HEENT: Pupils equal, round and reactive to light. NECK: Supple, no neck masses. CARDIOVASCULAR: S1, S2 heard. Regular rate and rhythm. No murmur, no gallop. RESPIRATORY SYSTEM: Normal AP diameter. No accessory muscle use. No wheezing, no crackles. ABDOMEN: Soft, bowel sounds present, nontender. No distention, no guarding. CENTRAL NERVOUS SYSTEM: Cranial nerves II-XII grossly intact, nonfocal. EXTREMITIES: No edema, no erythema. LABORATORY DATA: WBC 11.6, hemoglobin 15.4, hematocrit 45.8, platelets 217. PT 10.6, INR 1, APTT 33. Sodium 138, potassium 3.9, chloride 105, bicarb 24, BUN 12, creatinine 0.9, serum glucose 140, calcium 8.8, magnesium 2.1. Total bilirubin 0.5, AST 22, ALT 28, alkaline phosphatase 82. Troponin I less than 0.015. Lipase 3666. TSH 1.09. Urinalysis negative. Chest x-ray, no acute findings. Gallbladder ultrasound: No stones in the gallbladder, no acute cholecystitis, no biliary dilatation. Hepatic steatosis, unremarkable right kidney, pancreas obscured by the bowel gas. ASSESSMENT AND PLAN: This is a 59-year-old male presents with chest pain and elevated lipase level. 1. Chest pain. Risk factors are age and obesity, but initial troponin negative. EKG is normal sinus rhythm, rate of 86, no acute ST changes. We will rule out ACS. We will check serial enzymes and echocardiogram. If any concerns, we will consult Cardiology. 2. Acute pancreatitis. Most likely symptoms could be related to pancreatitis, though he complains pain is more in the lower part of chest rather than epigastric region, but no hx of alcoholism, no gallstones on the ultrasound. Etiology unclear. We will get a CT scan of the abdomen and pelvis with iv contrast to look at the pancreas. Will follow lipid profile.We will keep him n.p.o., aggressive IV fluids, IV antiemetics, IV pain medication p.r.n. and consult GI in a.m. for further recommendation. 3. Deep venous thrombosis prophylaxis. SCDs. DISPOSITION: Admit to med/surg tele. Level 1 full code. MTDD
--- NOTE | 2019-12-30 11:17 | Electrocardiogram Report ---
Test Reason : Blood Pressure : / mmHG Vent. Rate : 086 BPM Atrial Rate : 086 BPM P-R Int : 136 ms QRS Dur : 080 ms QT Int : 358 ms P-R-T Axes : 068 056 057 degrees QTc Int : 428 ms Normal sinus rhythm Normal ECG When compared with ECG of 19-OCT-2016 15:42, No significant change was found Confirmed by Sebastian Conley ([id number]) on 12/30/2019 11:16:59 AM Referred By: REFERRED SELF Confirmed By:Miki Conley
[2019-12-30] MEDS ORDERED: gemfibroziL 600 MG TAB PO SCH (14:10)
[2019-12-30] MEDS ORDERED: NIACIN EXTENDED REL 500 MG TABCR PO SCH (14:15)
--- NOTE | 2019-12-30 16:30 | Discharge Summary ---
Date of Service December 30, 2019 Admission HPI Per Admitting Provider DICTATED BY: Sam Ovalle MD DATE OF ADMISSION: 12/30/2019 CHIEF COMPLAINT: Chest pain. HISTORY OF PRESENT ILLNESS: This is a 59-year-old male with past medical history significant for diverticulitis of the colon with history of colostomy, bilateral carpal tunnel syndrome, presents with chest pain in the lower part of the chest. It was 24 hours ago last night. He noted his pain is sharp pain associated with nausea. It was of 10/10 in severity and was not getting better, so came to the ER. Currently after pain medications, his pain is improved. Denies any shortness of breath. No cough, no fever, no chills, no headache, no dizziness, no earache, no runny nose, no sore throat, no difficulties, no dysphagia. Otherwise, active. Normal bowel and bladder movements. No blood in stools or black stools. No hematuria, no burning micturition, no swelling in the legs. Currently resting comfortable and hemodynamically stable. Principal Diagnosis ACUTE PANCREATITIS /HYPER TRYGLYCERIDEMIA Discharge Exam Constitutional WD/WN, vitals as above well developed; no acute distress Eyes PERRL, conjunctivae normal, anicteric sclerae ENMT external ear and nose normal, oropharynx normal Neck trachea midline, no thyromegaly Respiratory normal respiratory effort, lungs clear to auscultation Cardiovascular RRR, no murmur, no edema Gastrointestinal (Abdomen) normal bowel sounds, soft, nontender, no hepatosplenomegaly Musculoskeletal no cyanosis or clubbing, extremities motor strength 5/5 Neurologic PERRL, EOMI, accommodation nl, no face palsy, no dysarthria Psychiatric A+Ox3, euthymic affect Discharge Data Allergies Allergy/AdvReac Type Severity Reaction Status Date / Time No Known Allergies Allergy Mild Unverified 12/30/19 00:08 Consultations 12/30/19 02:22 ED Decision to Admit Stat 12/30/19 04:23 Consult Case Management - Discharge Planning Routine 12/30/19 08:00 Consult Gastroenterology Routine Ordered Studies 12/30/19 01:07 US gallbladder Urgent 12/30/19 03:02 CT abd pelvis IV con only Urgent Hospital Course (1) Acute pancreatitis: admitted with abdominal pain CT abdomen pelvis ; 1. Findings compatible with acute interstitial edematous pancreatitis involving the pancreatic tail. No evidence of pancreatic necrosis, acute pancreatic fluid collection, pancreatic ductal dilation, obstructing mass or stone. 2. Postoperative changes of prior partial colectomy with right lower quadrant diverting colostomy. No bowel obstruction. 3. Nonspecific perirectal stranding is noted in addition to multiple pathologically enlarged and prominent lymph nodes of the perirectal fat, lower sigmoid mesocolon and lower mesentery. This pattern of disease is typically seen in cases of primary colonic neoplasm lymphatic metastasis. Close follow-up is needed. appreciate input from GI recommends out patient EUS /Endoscopic FNA of perirectal lymphnode , and colonoscopy advanced , tolerating well stable to be discharged home today HYPERTYRGLYCERIDEMI: TG elevated 385 started on gemfibrozil and Niacin information given for low cholesterol diet and exercise repeat fasting lipid panel in 6 months Total Time Total Time Spent Total Time Spent (In Minutes): approx 35 mins Total Time Includes: Examination of the Patient, Discharge Planning and Medication Reconciliation Discharge Plan Discharge Items Patient Disposition: Home - Self-Care Reason For Visit: CHEST PAIN Discharge Diagnosis: ACUTE PANCREATITIS /HYPERTRIGLYCERIDEMIA Condition on Discharge: Good Activity: Resume your previous activity Non-emergency contact: Primary Care Provider Call non-emergency contact if: you have any medication questions Follow-up/Referrals: Enid Paul DO [Primary Care Provider] - Priyanka Castillo MD [Hospitalist] - Diet: Low Fat Addtl Attending Provider Instructions: FOLLOW UP WITH GASTROENTEROLOGY IN CLINIC REPEAT FASTING LIPID PANEL IN 6 MONTHS Pending Studies at Discharge: Yes Studies:: Needs ENDOSCOPIC ULTRASOUND IN [facility] in 4 weeks. Rectal ENDOSCOPIC with FNA/FINE NEEDLE ASPIRATION BIOPSY of the LYMPH NODES and also colonoscopy through the colostomy. Stand-Alone Forms: [employer], Smoking Cessation Medications and DC Order Prescriptions: New niacin 500 mg capsule, extended release 500 mg PO DAILY Qty: 30 RF: 3 gemfibrozil 600 mg tablet 600 mg PO BID Qty: 60 RF: 3 Discharge Orders: Discharge Order (Routine); Ordered 12/30/19 Ordered By: Frida Gutierrez/Other Patient Handouts: Pancreatitis, Cholesterol Measurement, Triglycerides Admission Data Admit Date/Time: 12/30/19 03:02 Attending Provider: Frida Blair Admit Provider: Sam Ovalle Primary Care Provider: Enid Paul Other Providers: Priyanka Castillo ; Sam Ovalle
== END 2019-12-30 17:58 | disposition home or self-care (01) | DRG 440 ==
LOC: ED 23:52 → 2N 12-30 03:02

== ENCOUNTER 2023-08-27 09:21 | Inpatient (IN) ==
[2023-08-27] MEDS ORDERED: HEPARIN (PORCINE) 1000 UNIT/ML 10 ML (CATH LAB USE ONLY) ONE ×2 (09:23→10:35)
[2023-08-27] MEDS ORDERED: fentaNYL citrate PF 100 MCG/2 ML VIAL ONE (09:24)
[2023-08-27] MEDS ORDERED: fentaNYL citrate PF 100 MCG/2 ML VIAL IV STA (09:24)
[2023-08-27] MEDS ORDERED: niCARdipine HCL INJ 2.5 MG/ML 10 ML AMP ONE ×2 (09:24→10:35)
--- NOTE | 2023-08-27 09:26 | Emergency Department Note ---
History of Present Illness General Chief complaint: Heart Alert History of Present Illness 62-year-old male presents emergency department onset of chest pain that is nonradiating substernal that started 45 minutes prior to arrival. Patient also states that he had chest pain last night which went away without any intervention. Patient denies prior history of acute CO or cardiac stents. Patient rated the pain as 11 out of 10 was given IV fentanyl, nitro and aspirin by EMS prior to emergency department arrival. Patient currently rates pain 8 out of 10 located in the substernal region with no radiation. There is no nausea vomiting diaphoresis back pain jaw pain or neck pain. There are no other mitigating or alleviating factors. Home Medications Medication Instructions Recorded Confirmed Type gemfibrozil 600 mg tablet 600 mg PO BID #60 tabs 12/30/19 Rx niacin 500 mg capsule,extended 500 mg PO DAILY #30 caps 12/30/19 Rx release Allergies Allergy/AdvReac Type Severity Reaction Status Date / Time No Known Allergies Allergy Mild Unverified 12/30/19 00:08 Past Med/Surg History Medical History (Updated 08/27/23 @ 09:25 by Richard Campbell DO) No pertinent past medical history Surgical History Hx of colostomy Social History Smoking Status: Current every day smoker Tobacco Type: Cigarettes Hx Alcohol Use: No Hx Substance Use: No Preferred Language: Faroese Communication Ability: Effective Transportation Clerk Required: No Beliefs That Will Affect Care: None marital status: Single Current Living Situation: Alone Feels Safe at Home: Yes Assistive Devices: Glasses Immunizations: Past medical history is diverticulitis Social history he is a smoker Review of Systems A total of 10 systems reviewed and were otherwise negative Cardiovascular: + chest pain Physical Exam Vital Signs Vital Signs - 24 hr 08/27/23 09:26 08/27/23 09:28 Temperature 36.8 C Temperature Source Oral Pulse Rate 81 87 Respiratory Rate 18 Respiratory Effort / Characteristics Non-Labored Spontaneous Respiratory Depth Normal Respiratory Pattern Regular Blood Pressure 140/105 H Blood Pressure Mean 116 Blood Pressure Position Sitting Pulse Oximetry 96 Oxygen Delivery Method Room Air Sepsis Recent Fever Within 48 Hours No Sepsis New/Unexplained Change in Mental Status N/A Sepsis Action Taken by Nursing No Action Required GENERAL: Patient is awake alert in no acute distress patient is resting comfortably and showing no signs of anxiety EYES: The conjunctivae are clear. The pupils are round and reactive. EARS, NOSE, MOUTH AND THROAT: The nose is without any evidence of any deformity. Mucous membranes are moist. Tongue is midline. NECK: The neck is nontender and supple. RESPIRATORY: Normal respiratory effort is noted there is no evidence of wheezing rhonchi or rales CARDIOVASCULAR: Regular rate and rhythm noted there no murmurs rubs or gallops normal S1 normal S2. GASTROINTESTINAL: The abdomen is soft. Abdomen is nontender. Patient has an abdominal binder present, ileostomy present BACK: No midline tenderness or or step-off noted range of motion in flexion extension as well as rotation no signs of muscle spasm noted MUSCULOSKELETAL/EXTREMITIES: There is no evidence of gross deformity full range of motion is noted in the hips and shoulders. SKIN: There is no obvious evidence of any rash. There are no petechiae, pallor or cyanosis noted. NEUROLOGIC: Patient is awake alert and oriented x3 strength is symmetric Course Reevaluation(s) Reevaluation #1: Patient was given IV fentanyl in the emergency department. The cardiac cath team was at bedside, the patient was transferred to the cardiac Resource Technician and 12 minutes from arrival Time: 09:51 Consultations Consultation #1: Case was discussed with the cardiac cath team Time: 09:26 Administered Medications Discontinued Medications Fentanyl Citrate (Fentanyl Citrate Pf 100 Mcg/2 Ml Vial) 50 mcg IV NOW STA Stop: 08/27/23 09:25 Last Admin: 08/27/23 09:29 Dose: 50 mcg Documented By: MANNY Critical Care Time Critical Care Time: Yes Total Critical Care Time: 35 I have personally spent greater than 35 minutes of critical care time in the direct management of this patient. This includes bedside care, interpretation of diagnostic studies, and testing, discussion with consultants, patient, and family members, and other required patient management activities. These minutes are in excess of all separately billable procedures. Medical Decision Making Medical Records Attestation: I reviewed the patient's medical records. Home Medications Current Medication List: was personally reviewed by me Laboratory Data Attestation: I reviewed the patient's lab results. 08/27/23 09:31 08/27/23 09:31 Imaging Data Attestation: I personally reviewed and interpreted this imaging study as follows: My Impression: Chest x-ray interpreted by me negative for infiltrate ECG Data Attestation: I personally reviewed and interpreted this ECG as follows: Additional Comments: EKG interpreted by me EMS EKG at 9:[address] segment elevation in 1 and aVL as well as V3 through V6 EKG in the emergency department at 9:26 AM as interpreted by me, normal sinus rhythm rate of 81 ST segment elevation in leads I and aVL as well as V3 through V6 there is no obvious reciprocal changes, normal axis normal intervals Telemetry was ordered by me, interpreted as normal sinus rhythm with ST segment elevation on the monitor rate of 80 MDM Narrative Medical decision making differential diagnosis angina, unstable angina, acute CO, acute thoracic aortic dissection, musculoskeletal chest pain Plan is to activate heart alert, start evaluation for cardiac event, given IV fentanyl in the emergency department EMS gave me bedside report regarding the patient receiving aspirin, nitro, fentanyl prior to arrival as well as their EKG interpretation Patient clearly has an acute anterolateral CO, plan is for emergent cardiac cath Patient left the emergency department in 12 minutes Impression & Plan Acute CO, anterolateral wall Discharge Plan Visit Data Chief Complaint: Heart Alert ED Provider: Richard Campbell Discharge Problem: Acute CO, anterolateral wall Patient Disposition: Admitted As Inpatient Discharge Instructions Interventions: ED Discharge Assessment Last Done: 08/27/23 09:37 Forms Stand Alone Forms: My [employer] Prescriptions Prescriptions: No Action niacin 500 mg capsule, extended release 500 mg PO DAILY Qty: 30 3RF gemfibrozil 600 mg tablet 600 mg PO BID Qty: 60 3RF Referrals Referrals: Enid Paul, [Outside Practitioners] -
[2023-08-27] MEDS ORDERED: TICAGRELOR 90 MG TAB ONE (09:30)
--- OUTSIDE RECORDS SUMMARY | 2023-08-27 09:37 | External Medical Summary | Summary of Care ---
Author Name Unknown Organization [facility] Address [address] [facility] [place] [address] Phone [phone] Care Team Providers Care Manager Programs Name Role Phone Becca Walter MD Primary Care Provid er Encounter Details Date Type Department Care Team (Late st Contact Info) Description 06/23/2023 Patient Reported Data Patient Survey Ortho [facility] Allergies Active Allergy Reactions Criticality Noted Date Comments Chocolate 12/22/2022 blisters documented as of this encounter (statuses as of 06/23/2023) Medications Medication Sig Dispensed Refills Start Date End Date Status [facility] 2"[id number] TAPEIndications:Col ostomy status (HCC) Apply as directed 4 Each 10 07/23/2013 Active OSTOMY SUPPLIES POUCH MISCIndications:Col ostomy status (HCC) 2 and 3/4" pouch; Apply as directed #[id number] 2 Box 12 05/14/2014 Active OSTOMY SUPPLIES MISCIndications:Col ostomy status (HCC) skin prep wipes 1 Box 12 05/14/2014 Active Naproxen Sodium 220 MG Oral CapsuleIndications: as needed Take 1 Capsule by mouth 2 times a day with morning and evening meals. 0 Active Triamcinolone Acetonide 0.1 % External Cream (Aristocort)Indicat ions:Rash and nonspecific skin eruption,Folliculit is Apply topically to affected area 2 times a day. To affected area. 45 g 1 04/21/2021 Active Atorvastatin Calcium 20 MG Oral Tablet (Lipitor) Take 1 Tablet (20 mg) by mouth in the morning. 90 Tablet 3 07/12/2022 Active Ostomy Supplies Please dispense 30 wafers and pouches a month Pt changes bags daily due to sweating and leakage 30 Each 12 11/12/2022 Active Ostomy Supplies WaferIndications:Co lostomy status (HCC) Administer via ostomy tube. Change wafer daily 10 Wafer 12 11/12/2022 Active Ostomy Supplies Pouch Item number [id number]. filtered pouch (erich) Change pouch daily. 30 Each 12 11/12/2022 Active oxyCODONE-Acetamino phen 5-325 MG Oral Tablet (Percocet) Take 1 Tablet by mouth every 6 hours as needed for Moderate pain 20 Tablet 0 12/27/2022 Active Additional Information Patient not taking.Reported on 02/01/2023 Ibuprofen 800 MG Oral Tablet (Motrin) Take 1 Tablet by mouth in the morning, 1 Tablet at noon and 1 Tablet before bedtime. Take with Meals. 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 Diverticulitis of colon 02/04/2012 documented as of this encounter (statuses as of 06/23/2023) Immunizations Name Administration Dates Next Due COVID-19 mRNA, LNP-s, No Pre serve, 2-Dose Series (Moderna) 02/13/2021,01/14/2021 TDAP (age 10 and older)(Boostrix) 06/06/2014 documented as of this encounter Social History Tobacco Use Types Packs/Day Years Used Date Smoking Tobacco: Every Day Cigarettes 1 43 Smokeless Tobacco: Former Comments:QUIT JANUARY 2012, res tarted in August Alcohol Use Standard Drinks/Week Comments Yes 0 (1 standard drink = 0.6 oz pure alcohol) 1 shot of christopher aleyda on Tuesday PHQ-2 Answer Date Recorded PHQ-2 Score 0 10/17/2019 Hunger Vital Sign Answer Date Recorded Worried About Running Out of Food in the Last Ye ar Never true 10/17/2019 Ran Out of Food in the Last Year Never true 10/17/2019 Sex and Gender Information Value Date Recorded Sex Assigned at Male 11/02/2022 11:29 AM EDT Gender Identity Male 11/02/2022 11:29 AM EDT Sexual Orientation Straight 10/17/2019 7: 44 AM EST Job Start Date Occupation Industry Not on file Not on file Not on file documented as of this encounter Plan of Treatment Upcoming Encounters Date Type Department Care Team (Late st Contact Info) Description 06/28/2023 11:45 AM EST Office Visit Orthopaed[facility] [address] [place] [id number] Preston Harrington MD [address] [place] [id number] 12/09/2023 11:40 AM EDT Office Visit [facility] [address] [place] [id number] Becca Walter MD [address], [place] [id number] Scheduled Procedures Name Priority Associated Diagnoses Date/Ti me COLONOSCOPY FLEXIBLE PROXIMAL DIAGNOSTIC Recall Screen for colon cancer Health Maintenance Due Date Last Done Comments Pneumococcal Vaccine: Pediatrics (0 to 5 Years) and At-Risk Patients (6 to 64 Years) (1 - PCV) 1968 HIV Screening 1977 Hepatitis C Screening 1980 Cologuard 11/09/2007 Fecal Occult Blood Test 11/09/2007 Sigmoidoscopy 11/09/2007 Zoster Vaccines (1 of 2) 2012 Depression Screening 10/16/2020 10/17/2019 COVID-19 Vaccine (3 - season) 2023 02/13/2021, 01/14/2021 Influenza Vaccine (FLU shot) (#1) 2023 05/23/2018 (Declined), 04/20/2017 (Declined) DTaP,Tdap,and Td Vaccines (2 - Td or Tdap) 06/06/2024 06/06/2014 Diabetes Screening 05/10/2025 05/10/2022, 0 01/21/2021, 10/17/2020, Additional history exists Lipid Panel 05/10/2027 05/10/2022, 06/0 04/2021, 10/17/2020 Colonoscopy 02/11/2030 02/12/2020, 03/15, 03/29/2012 Colorectal Cancer Screening 02/11/2030 LUNG CANCER SCREENING - USE SMARTSET [id number] Completed 08/18/2020, 06/19/2012 GARDASIL-HPV IMMUNIZATION SERIES Aged Out No longer eligible based on patient's age to complete this topic Hepatitis B Aged Out No longer eligi ble based on patient's age to complete this topic MENINGOCOCCAL (MENACTRA/MENVEO) Aged Out No longer eligible based on patient's age to complete this topic documented as of this encounter Medical Devices Not on filedocumented as of this encounter Advance Directives Latest Code Status on File Code Status Date Activated Date Inactivated Comments Full Code 12/27/2022 11:56 AM 12/27/2022 5:49 PM This order reflects the patients wishes and were consensually agreed upon. Question Answer Comments Discussion of Advance Directives occurred with: Not Discussed due to patient's condition Code Status History Code Status Date Activated Date Inactivated Comments Full Code 12/27/2022 8:39 AM 12/27/2022 11:56 AM This order reflects the patients wishes and were consensually agreed upon. Question Answer Comments Discussion of Advance Directives occurred with: Not Discussed due to patient's condition Full Code 04/18/2013 10:58 AM 04/21/2013 5:03 PM This o rder reflects the patients wishes and were consensually agreed upon. Question Answer Comments Discussion of Advance Directives occurred with: Patient Does the patient have a Living Will? No Does the patient have Health Care Power of Distribution Coordinator? No Full Code 06/14/2012 4:23 PM 06/28/2012 5:28 PM Thi s order reflects the patients wishes and were consensually agreed upon. Question Answer Comments Discussion of Advance Directives occurred with: Not Discussed Does the patient have a Living Will? No Does the patient have Health Care Power of Distribution Coordinator? No Full Code 06/09/2012 2:09 PM 06/11/2012 8:40 PM Thi s order reflects the patients wishes and were consensually agreed upon. Question Answer Comments Discussion of Advance Directives occurred with: Patient Care Teams Manager Programs Relationship Specialty Start Date End Date Becca Walter MD [address] [place] [address] PCP - General Family Medicine 03/26/22 documented as of this encounter
--- OUTSIDE RECORDS SUMMARY | 2023-08-27 09:37 | External Medical Summary | Summary of Care ---
Author Name Unknown Organization [facility] Address [address] [facility] [address] Phone [phone] Care Team Providers Care Crucible Packer Name Role Phone Becca Walter MD Primary Care Provid er Reason for Visit * Reason Comments Follow Up Left shoulder Encounter Details Date Type Department Care Team (Late st Contact Info) Description 06/28/2023 11:45 AM EST Office Visit Orthopaedics [facility] [address] [place] [address] Preston Harrington MD [address] [place] [address] Chronic pain of both shoulders* Allergies Active Allergy Reactions Criticality Noted Date Comments Chocolate 12/22/2022 blisters documented as of this encounter (statuses as of 06/28/2023) Medications Medication Sig Dispensed Refills Start Date End Date Status MEDIPORE H SURGICAL 2"X10YD TAPEIndications:Col ostomy status (HCC) Apply as directed 4 Each 10 07/23/2013 Active OSTOMY SUPPLIES POUCH MISCIndications:Col ostomy status (HCC) 2 and 3/4" pouch; Apply as directed #[id number] 2 Box 12 05/14/2014 Active OSTOMY SUPPLIES [...] 11/12/2022 Active Ostomy Supplies Pouch Item number [id number]. filtered pouch (erich) Change pouch daily. 30 [...] with Meals. 45 Tablet 0 12/27/2022 Active Hospital, Clinic, or Other Facility Administered Medication Ordered Dose Route Frequency Start Date End Date Status lidocaine 1% 1 mL - triamcinolone acetonide 40 mg/mL 1 mL inj 2 mLIndications:Chronic pain of both shoulders 2 mL IJ ONCE 06/28/2023 06/28/2023 Ended lidocaine 1% 1 mL - triamcinolone acetonide 40 mg/mL 1 mL inj 2 mLIndications:Chronic pain of both shoulders 2 mL IJ ONCE 06/28/2023 06/28/2023 Ended documented as of this encounter (statuses as of 06/28/2023) Active Problems Problem Noted Date Diagnosed Date H/O acute pancreatitis 11/02/2022 Hypertriglyceridemia 11/02/2022 Dyslipidemia 11/02/2022 Encounter for monitoring chronic NSAID therapy 0 11/02/2022 Vaccination declined 11/02/2022 Bilateral carpal tunnel syndrome 06/02/2018 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 I saw him originally for this on 01/23/2018 Most recent visit was on 08/24/2021 (22 months ago) Hernando Maloney is here unaccompanied Quality: reviewed and agree with Nursing Notes for HPI elements History on 01/23/2018: Presents for evaluation of BL hand paresthesias present for 10 years. Has previously had an EMG wasdiagnosed with carpal tunnel but that was many years ago. Symptoms have worsened. 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 No radiation of symptoms proximal to the wrist/hand. In the past he has tried carpal tunnel bracing and even did this recently but has not helped. He did have an EMG ordered by primary care office, however, that is not scheduled until 02/21/2018. Additional history 06/28/18: Since that visit he was seen by Dr. Nolan (orthopaedic spine surgery). I have read his note from 06/02/2018. Patient was diagnosed with bilateral carpal tunnel, left ulnar nerve neuropathy and chronic C8 radiculopathy. Dr. Veronica Brooke recommended addressing carpal tunnel 1st and for continued symptoms would then consider pursuing surgical decompression of the cervical spine. Additional history 11/06/2018: Since that visit he reports 100% improvement in his symptoms. He is very pleased. Additional history 08/24/2021: shoulder been doing very well but he had not been using it much. Recently started doing more activity would like to have the left shoulder injected again Since that visit: presents today for shoulder pain, bilaterally. Left shoulder 8/10 right 4/10. Requesting injectionsin both shoulders. Last left subacromial steroid injection- 08/24/21 (about 22 months ago) ROS: ROS per HPI otherwise non-contributory Past Medical History: Diagnosis Date Diverticula of colon Family History Problem Relation Age of Onset Heart Disorder Mother Neurological Disorder Mother CVA Cancer Mother ? Diabetes Mother Other (Sudden , Unknown cause [Other]) Father No Past Hx Sister Social History Socioeconomic History Marital status: Single Spouse name: Not on file Number of children: Not on file Years of education: Not on file Highest education level: Not on file Social Needs Financial resource strain: Not on file Food insecurity - worry: Not on file Food insecurity - inability: Not on file Transportation needs - medical: Not on file Transportation needs - non-medical: Not on file Occupational History Not on file Tobacco Use Smoking status: Current Every Day Smoker Packs/day: 1.00 Years: 43.00 Pack years: 43.00 Types: Cigarettes Smokeless tobacco: Former User Tobacco comment: QUIT JANUARY 2012, restarted in August Substance and Sexual Activity Alcohol use: Yes Comment: 1 shot of christopher aleyda on Tuesday Drug use: No Sexual activity: Not on file Other Topics Concern Not on file Social History Narrative Not on file Physical Exam Constitutional: generally well-nourished and in no acute distress Psychiatric: Mood and Affect normal Eyes: EOMI Respiratory: normal respiratory effort with regular rate and rhythm Cardiovascular: no edema in the affected extremity (s) Peripheral pulses: normal in affected extremity (s) Skin examination: normal on affected extremity (s) Neurologic: Gait and Station: normal Coordination: normal Sensation: normal on affected extremity (s) Full range of motion at the wrist bilaterally. Positive Tinel 's at the carpal tunnel and Phalen 's. Sensation was intact bilaterally. Strength: Motor to distal AIN, PIN, medial, radial, ulnar intact Palpation: He was tender palpate over the proximal long head biceps tendon and also posterior lateral aspect of the shoulder subacromial space. ROM: Left: Forward Flexion: 180 degrees Abduction: 180 degrees External rotation at 90 degrees abduction: 90 degrees Internal rotation at 90 degrees abduction: 90 degrees External rotation at 0 degrees: 70 degrees Internal Rotation: T7 Did have increased pain with abduction and forward flexion Strength: Bilateral Forward flexion: 5/5 Abduction: 5/5 External Rotation: 5/5 Internal Rotation: 5/5 Motor to distal AIN, PIN, medial, radial, ulnar intact BL Positive impingement testing Radiology (I have personally reviewed the following films): 06/28/2023: Three-view x-ray of each shoulder Left: Mild glenohumeral DJD, AC DJD, Changes at the greater tuberosity concerning for chronic rotator cuff pathology Right: Changes at the greater tuberosity concerning for chronic rotator cuff pathology, degenerative changes AC joint 04/27/18: MRI cervical spine At the level of C2-C3, there is no significant spinal canal or neural foraminal stenosis. At the level of C3-C4, there is facet hypertrophy causing mild to moderate right neural foraminal stenosis and mild left neural foraminal stenosis without significant spinal canal stenosis. At the level of C4-C5, there is a posterior disc osteophyte complex with superimposed central broad-based disc herniation, uncovertebral spurring, and facet hypertrophy causing mild ventral effacement of the CSF space and moderate right neural foraminal stenosis. At the level of C5-C6, there is a posterior disc osteophyte complex with uncovertebral spurring andfacet hypertrophy causing moderate spinal canal stenosis, moderate right neural foraminal stenosis,and severe left neural foraminal stenosis. At the level of C6-C7, there is a posterior disc osteophyte complex with uncovertebral spurring andfacet hypertrophy causing moderate spinal canal stenosis, moderate to severe right neural foraminalstenosis, and severe left neural foraminal stenosis. At the level of C7-T1, there is facet hypertrophy without significant spinal canal or neural foraminal stenosis. 04/20/2018: Three-view x-ray of the left shoulder Cystic change at the greater tuberosity concerning for possible chronic rotator cuff tendinopathy. Otherwise unremarkable 04/20/2018: Four view x-ray of the cervical spine including AP lateral flex ex Severe DDD at C5-6 and C6-C7 Also grade 1 retrolisthesis of C5 on C6 01/24/2018: Three-view x-ray of the bilateral wrists IMPRESSION 1. Carpal boss of the right wrist. 2. 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 Other studies: EMG: Abnormal Study. There is electrodiagnostic evidence of the followin. Moderate to severe bilateral median neuropathies at the wrist (carpal tunnel syndrome). 2. Left ulnar neuropathy across the elbow. 3. Chronic right C8 radiculopathy with no active denervation changes. Assessment and Plan: 1. Left shoulder pain Possible chronic rotator cuff tendinopathy. Also do have concern for symptoms related to cervical radiculopathy. Reports 100% resolution following the subacromial steroid injection performed at the visit on 10/09/18. Previous subacromial steroid injection performed on: 07/19/2018, 10/09/2018, and 08/24/2021 gave himsubstantial long-term benefit. Requested repeat injection today, which was performed (06/28/2023) For lack of improvement with this injection or lack of the desired response patient is to return tothe office so updated x-rays can be obtained 2) right shoulder pain Suspect rotator cuff tendinosis/impingement Patient desires steroid injection which was performed today 06/28/2023 in the subacromial space with palpation guidance Follow-up p.r.n. for both issues Procedure note (shoulder subacromial bursa injection) on bilateral: Time out: Prior to injection, a time out was called to confirm the administration of appropriate medicine, patient name, procedure and confirm to the best of our ability and knowledge the presence of any necessary risks and benefits. Patient verbalizes understanding. Posteriolateral approach used. Sterile techinique applied. Skin sterilized with chlorhexidine and cleaned with alcohol swab. Subacromial bursa injected using 1.5 inch, 22 gauge needle. Injected with Injected with 1 ml lidocaine 1%, triamcinolone acetonide 40mg/ml 1 ml. . Patient tolerated procedurewith no significant bleeding or adverse reaction. Patient instructed to call or return to clinic for fever or warmth and redness at injection site for potential infection. Patient also advised as to potential for steroid flare reaction including increased pain and redness at injection site which should be treated with ice and resolve within 24 hours. Preston Harrington MD Primary Care Sports Medicine [facility] [address] [address] documented in this encounter Nursing Notes * Tiki Gaytan, RN - 06/28/2023 11:43 AM EST Pt presents today for shoulder pain, bilaterally. Left shoulder 8/10 right 4/10. Requesting injections in both shoulders. Last left subacromial steroid injection-08/24/21 Tiki Gaytan RN documented in this encounter Plan of Treatment Upcoming Encounters Date Type Department Care Team (Late st Contact Info) Description 12/09/2023 11:40 AM EDT Office Visit [place] [address] [place] [address] Becca Walter MD [address] [place] [address] Pending Results Name Type Priority Associated Diagnoses Date /Time XR SHOULDER, 2 OR MORE VIEWS Medical Imaging Routine Chronic pain of both shoulders 06/28/2023 12:23 PM EST Scheduled Procedures Name Priority Associated Diagnoses Date/Ti [...] 02/11/2030 LUNG CANCER SCREENING - USE SMARTSET [id number] Completed 08/18/2020, 06/19/2012 GARDASIL-HPV IMMUNIZATION SERIES Aged [...] Not on filedocumented as of this encounter Visit Diagnoses Diagnosis Chronic pain of both shoulders- Primary Pain in joint, shoulder region documented in this encounter Administered Medications Inactive Administered Medications - up to 3 most recent administrations Medication Order MAR Action Action Date Dose Rate Site lidocaine 1% 1 mL - triamcinolone acetonide 40 mg/mL 1 mL inj 2 mL 2 mL, Injection, ONCE, On Tu06/28/23 at 1315, For 1 dose, Lidocaine 1% 1mL Triamcinolone Acetonide 40 mg/mL 1 mL (Final concentration = 20 mg/mL) REFRIGERATE and SHAKE WELL Given 06/28/2023 12:35 PM EST 2 mL Shoulder Right lidocaine 1% 1 mL - triamcinolone acetonide 40 mg/mL 1 mL inj 2 mL 2 mL, Injection, ONCE, On Tue06/28/23 at 1315, For 1 dose, Lidocaine 1% 1mL Triamcinolone Acetonide 40 mg/mL 1 mL (Final concentration = 20 mg/mL) REFRIGERATE and SHAKE WELL Given 06/28/2023 12:35 PM EST 2 mL Shoulder Left documented in this encounter Advance Directives Latest Code Status [...] the patient have Health Care Power of Fire Services Plumber? No Full Code 06/14/2012 4:23 PM 06/28/2012 5:28 PM Thi s order reflects the patients wishes and were consensually agreed upon. Question Answer Comments Discussion of Advance Directives occurred with: Not Discussed Does the patient have a Living Will? No Does the patient have Health Care Power of Fire Services Plumber? No Full Code 06/09/2012 2:09 PM 06/11/2012 8:40 PM Thi s order reflects the patients wishes and were consensually agreed upon. Question Answer Comments Discussion of Advance Directives occurred with: Patient Care Teams Crucible Packer Relationship Specialty Start Date End Date Becca Walter MD [address] [facility] [place] [address] PCP - General Family Medicine 03/26/22 documented as of this encounter
--- OUTSIDE RECORDS SUMMARY | 2023-08-27 09:37 | External Medical Summary | Summary of Care ---
Author Name Unknown Organization [facility] Address [address] [facility] [place] [address] Phone [phone] Care Team Providers Care Gasoline Finisher Name Role Phone Becca Walter MD Primary Care Provid er Encounter Details Date Type Department Care Team Description 03/09/2023 Patient Reported Data Patient Survey Ortho OBERD Allergies Active Allergy Reactions Severity Noted Date Comments Chocolate 12/22/2022 blisters documented as of this encounter (statuses as of 03/09/2023) Medications Medication Sig Dispensed Refills Start Date End Date Status MEDIPORE H SURGICAL 2"X10YD TAPEIndications:Col ostomy status (HCC) Apply as directed 4 Each 10 07/23/2013 Active OSTOMY SUPPLIES POUCH MISCIndications:Col ostomy status (HCC) 2 and 3/4" pouch; Apply as directed #[id number] 2 Box 12 05/14/2014 Active OSTOMY SUPPLIES [...] 11/12/2022 Active Ostomy Supplies Pouch Item number [id number]. filtered pouch (erich) Change pouch daily. 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 Never true 10/17/2019 Within the past 12 months, t he food you bought just didn't last and you didn't have money to get more. Never true 10/17/2019 Sex Assigned at Date Recorded Male 11/02/2022 11:29 AM EDT Job Start Date Occupation Industry Not on file Not on file Not on file documented as of this encounter Plan of Treatment Upcoming Encounters Date Type Specialty Care Team Description 12/09/2023 Office Visit Family Medicine Becca Walter MD [address] [place] [address] Scheduled Procedures Name Priority Associated Diagnoses Date/Ti [...] Zoster Vaccines (1 of 2) 2012 Depression Screening, Annual for Pts 12 and Over 10/16/2020 10/17/2019 COVID-19 Vaccine (3 - Moderna series) 04/10/2021 02/13/2021, 01/14/2021 Influenza Vaccine (FLU shot) (#1) 2023 05/23/2018 (Declined), 04/20/2017 (Declined) DTaP,Tdap,and Td Vaccines (2 - Td or Tdap) 06/06/2024 06/06/2014 Diabetes Screening 05/10/2025 05/10/2022, 0 01/21/2021, 10/17/2020, Additional history exists Lipid Panel 05/10/2027 05/10/2022, 06/0 04/2021, 10/17/2020 Colonoscopy 02/11/2030 02/12/2020, 03/15, 03/29/2012 Colorectal Cancer Screening 02/11/2030 LUNG CANCER SCREENING - USE SMARTSET [id number] Completed 08/18/2020, 06/19/2012 GARDASIL-HPV IMMUNIZATION SERIES Aged [...] the patient have Health Care Power of Motor Assembler? No Full Code 06/14/2012 4:23 PM 06/28/2012 5:28 PM Thi s order reflects the patients wishes and were consensually agreed upon. Question Answer Comments Discussion of Advance Directives occurred with: Not Discussed Does the patient have a Living Will? No Does the patient have Health Care Power of Motor Assembler? No Full Code 06/09/2012 2:09 PM 06/11/2012 8:40 PM Thi s order reflects the patients wishes and were consensually agreed upon. Question Answer Comments Discussion of Advance Directives occurred with: Patient Care Teams Gasoline Finisher Relationship Specialty Start Date End Date Becca Walter MD [address] [place] [address] PCP - General Family Medicine 03/26/22 documented as of this encounter
--- OUTSIDE RECORDS SUMMARY | 2023-08-27 09:37 | External Medical Summary | Summary of Care ---
Author Name Unknown Organization [facility] Address [address] [facility] [place] [place] [address] Phone [phone] Care Team Providers Care Safety Person Name Role Phone Becca Walter MD Primary [...] 2 and 3/4" pouch; Apply as directed #[id number] 2 Box 12 05/14/2014 Active OSTOMY SUPPLIES [...] 11/12/2022 Active Ostomy Supplies Pouch Item number [id number]. filtered pouch (erich) Change pouch daily. 30 [...] Encounters Date Type Specialty Care Team Description 04/07/2023 Telemedicine Orthopedics Bunny Bailey MD [address] [place] [address] 12/09/2023 Office Visit Family Medicine Becca Walter MD [address] [place] [address] Scheduled Procedures Name Priority Associated Diagnoses Date/Ti [...] 02/11/2030 LUNG CANCER SCREENING - USE SMARTSET [id number] Completed 08/18/2020, 06/19/2012 GARDASIL-HPV IMMUNIZATION SERIES Aged [...] the patient have Health Care Power of Wafer Cutter? No Full Code 06/14/2012 4:23 PM 06/28/2012 5:28 PM Thi s order reflects the patients wishes and were consensually agreed upon. Question Answer Comments Discussion of Advance Directives occurred with: Not Discussed Does the patient have a Living Will? No Does the patient have Health Care Power of Wafer Cutter? No Full Code 06/09/2012 2:09 PM 06/11/2012 8:40 PM Thi s order reflects the patients wishes and were consensually agreed upon. Question Answer Comments Discussion of Advance Directives occurred with: Patient Care Teams Safety Person Relationship Specialty Start Date End Date Becca Walter MD [address] [place] [address] PCP - General Family Medicine 03/26/22 documented as of this encounter
--- OUTSIDE RECORDS SUMMARY | 2023-08-27 09:37 | External Medical Summary | Summary of Care ---
Author Name Unknown Organization [facility] Address [address] [facility] [place] [address] Phone [phone] Care Team Providers Care Hay Rake Operator Name Role Phone Becca Walter MD Primary Care Provid er Reason for Visit * Reason Comments Post-Op Encounter Details Date Type Department Care Team Description 04/07/2023 Telemedicine Orthopaedics [facility] [address] [place] [address] Bunny Bailey MD [address] [place] [id number] Postoperative follow-up* Allergies Active Allergy Reactions Severity Noted Date Comments Chocolate 12/22/2022 blisters documented as of this encounter (statuses as of 04/07/2023) Medications Medication Sig Dispensed Refills Start Date End Date Status MEDIPORE H SURGICAL 2"X10YD TAPEIndications:Col ostomy status (HCC) Apply as directed 4 Each 10 07/23/2013 Active OSTOMY SUPPLIES POUCH MISCIndications:Col ostomy status (HCC) 2 and 3/4" pouch; Apply as directed #[id number] 2 Box 12 05/14/2014 Active OSTOMY SUPPLIES [...] 11/12/2022 Active Ostomy Supplies Pouch Item number [id number]. filtered pouch (erich) Change pouch daily. 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 Patient was then informed that this was a telephone call only visit. The patient agreed to participate. Visit Disposition: Routine follow-up Assessment Z09 Postoperative follow-up (primary encounter diagnosis) Three months status post right distal biceps tendon repair We discussed the patient's symptoms with him today. At this time he states that he has no issues with the elbow. He has returned to all activities as tolerated. He denies any stiffness. Denies any swelling. Denies any locking or catching. Patient states that he has no concerns at this time. At this time recommend that the patient continue with activities as tolerated. We will see him backin the office as needed. We answered all his questions to the best of our abilities today. Total call duration was less than 5 minutes. Bunny Bailey MD Orthopaedics [address] [address] Orthopedic Sports Medicine Surgery documented in this encounter Plan of Treatment Upcoming Encounters Date Type Specialty Care Team Description 12/09/2023 Office Visit Family Medicine Becca Walter MD [address] [place] [id number] Scheduled Procedures Name Priority Associated Diagnoses Date/Ti [...] 02/11/2030 LUNG CANCER SCREENING - USE SMARTSET [id number] Completed 08/18/2020, 06/19/2012 GARDASIL-HPV IMMUNIZATION SERIES Aged [...] as of this encounter Visit Diagnoses Diagnosis Postoperative follow-up- Primary Follow-up examination, following unspecified surgery documented in this encounter Advance Directives Latest [...] the patient have Health Care Power of Lawn Service Supervisor? No Full Code 06/14/2012 4:23 PM 06/28/2012 5:28 PM Thi s order reflects the patients wishes and were consensually agreed upon. Question Answer Comments Discussion of Advance Directives occurred with: Not Discussed Does the patient have a Living Will? No Does the patient have Health Care Power of Lawn Service Supervisor? No Full Code 06/09/2012 2:09 PM 06/11/2012 8:40 PM Thi s order reflects the patients wishes and were consensually agreed upon. Question Answer Comments Discussion of Advance Directives occurred with: Patient Care Teams Hay Rake Operator Relationship Specialty Start Date End Date Becca Walter MD [address] [place] [address] PCP - General Family Medicine 03/26/22 documented as of this encounter
--- OUTSIDE RECORDS SUMMARY | 2023-08-27 09:37 | External Medical Summary | Summary of Care ---
Author Name Unknown Organization [facility] Address [address] [facility] [address] Phone [phone] Care Team Providers Care Electron Beam Welder Setter Name Role Phone Becca Walter MD Primary [...] 2 and 3/4" pouch; Apply as directed #[id number] 2 Box 12 05/14/2014 Active OSTOMY SUPPLIES [...] 11/12/2022 Active Ostomy Supplies Pouch Item number [id number]. filtered pouch (erich) Change pouch daily. 30 [...] 06/28/2023 11:45 AM EST Office Visit Orthopaedics [facility] [address] [place] [address] Preston Harrington MD [address] [place] [address] 12/09/2023 11:40 AM EDT Office Visit [facility] [address] [place] [phone] Becca Walter MD [address] [place], [place] [phone] Scheduled Procedures Name Priority Associated Diagnoses Date/Ti [...] 02/11/2030 LUNG CANCER SCREENING - USE SMARTSET [id number] Completed 08/18/2020, 06/19/2012 GARDASIL-HPV IMMUNIZATION SERIES Aged [...] the patient have Health Care Power of Flexible Babysitter? No Full Code 06/14/2012 4:23 PM 06/28/2012 5:28 PM Thi s order reflects the patients wishes and were consensually agreed upon. Question Answer Comments Discussion of Advance Directives occurred with: Not Discussed Does the patient have a Living Will? No Does the patient have Health Care Power of Flexible Babysitter? No Full Code 06/09/2012 2:09 PM 06/11/2012 8:40 PM Thi s order reflects the patients wishes and were consensually agreed upon. Question Answer Comments Discussion of Advance Directives occurred with: Patient Care Teams Electron Beam Welder Setter Relationship Specialty Start Date End Date Becca Walter MD [address] [place] [address] PCP - General Family Medicine 03/26/22 documented as of this encounter
--- OUTSIDE RECORDS SUMMARY | 2023-08-27 09:37 | External Medical Summary | Summary of Care ---
Author Name Unknown Organization [facility] Address [address] [facility] [place] [address] Phone [phone] Care Team Providers Care Diecast Machine Operator Name Role Phone Becca Walter MD Primary Care Provid er Reason for Visit * Reason Comments Follow Up S/p Rightdistal bi ceps tendon repair Encounter Details Date Type Department Care Team Description 03/09/2023 Office Visit Orthopaedics [facility] [address] [place] [address] Bunny Bailey MD [address] [place] [phone] Postoperative follow-up* Allergies Active Allergy Reactions Severity Noted Date Comments Chocolate 12/22/2022 blisters documented as of this encounter (statuses as of 03/09/2023) Medications Medication Sig Dispensed Refills Start Date End Date Status MEDIPORE H SURGICAL 2"X10YD TAPEIndications:Col ostomy status (HCC) Apply as directed 4 Each 10 07/23/2013 Active OSTOMY SUPPLIES POUCH MISCIndications:Col ostomy status (HCC) 2 and 3/4" pouch; Apply as directed #[id number] 2 [address] 12 05/14/2014 Active OSTOMY SUPPLIES [...] 11/12/2022 Active Ostomy Supplies Pouch Item number [id number]. filtered pouch (erich) Change pouch daily. 30 [...] Progress Notes * Bunny Bailey MD - 03/09/2023 11:08 AM EDT ORTHOPAEDIC SURGERY - Post-Op Clinic Note SUBJECTIVE: Hernando Maloney is a 62 year old male. Chief Complaint Patient presents with Follow Up S/p Rightdistal biceps tendon repair ASSESSMENT: 62 year old male 2 month(s) s/p right distal biceps tendon repair PLAN: We discussed diagnosis and treatment options with the patient today. At this time patient will continue with his strengthening program. He may gradually return to activities as tolerated. There are no diagnoses linked to this encounter. Follow Up: Return in about 4 weeks (around 04/06/2023) for Telephone Visit. | For: Telephone Visit HPI: Hernando Maloney presents today 2 month(s) s/p Right distal biceps tendon repair doing well. Patient denies any significant pain. He has been avoiding any heavy lifting. He is eager to return to fishing and canoeing. Parathesia negative: Calf pain negative: Fevers or chills negative. Ambulating with crutches negative Review of patient's allergies indicates: Allergen Reactions Chocolate blisters Current Outpatient Medications Medication Sig Dispense Refill MEDIPORE H SURGICAL 2"X10YD TAPE Apply as directed 4 Each 10 OSTOMY SUPPLIES POUCH MISC 2 and 3/4" pouch; Apply as directed #[id number] 2 Box 12 OSTOMY SUPPLIES MISC skin prep wipes 1 Box 12 Naproxen Sodium 220 MG Oral Capsule Take 1 Capsule by mouth 2 times a day with morning and evening meals. Triamcinolone Acetonide 0.1 % External Cream (Aristocort) Apply topically to affected area 2 times a day. To affected area. 45 g 1 Atorvastatin Calcium 20 MG Oral Tablet (Lipitor) Take 1 Tablet (20 mg) by mouth in the morning.90 Tablet 3 Ostomy Supplies Please dispense 30 wafers and pouches a month Pt changes bags daily due to sweating and leakage 30 Each 12 Ostomy Supplies Wafer Administer via ostomy tube. Change wafer daily 10 Wafer 12 Ostomy Supplies Pouch Item number [id number]. filtered pouch (erich) Change pouch daily. 30 Each 12 oxyCODONE-Acetaminophen 5-325 MG Oral Tablet (Percocet) Take 1 Tablet by mouth every 6 hours asneeded for Moderate pain (Patient not taking: Reported on 02/01/2023) 20 Tablet 0 Ibuprofen 800 MG Oral Tablet (Motrin) Take 1 Tablet by mouth in the morning, 1 Tablet at noon and 1 Tablet before bedtime. Take with Meals. 45 Tablet 0 No current facility-administered medications for this visit. OBJECTIVE: Diagnostic studies: None Vital Signs: There were no vitals taken for this visit. Physical Exam: Evaluation of the right elbow. Range of motion 0 to 160. His strength is 5/5 with the pronation, supination, flexion and extension. He is nontender palpation over the distal biceps tendon. The incisions are well healed. Sensations intact. Bunny Bailey MD Orthopaedics [place] [address] Orthopedic Sports Medicine Surgery 03/09/2023 11:08 AM This chart was completed in part utilizing [employer] Speech Voice Recognition Software. Grammatical errors, random word insertions, pronoun errors, and incomplete sentences are an occasional consequence of this system due to software limitations, ambient noise, and hardware issues. Any formal questions or concerns about the content, text, or information contained within the body of this dictation should be directly addressed to the provider for clarification. documented in this encounter Nursing Notes * Juju Cline LPN - 03/09/2023 10:47 AM EDT S/p Rightdistal biceps tendon repair Finding-complete distal biceps tendon rupture 12/27/2022 (10 weeks out) Patietn out of brace completed PT, ROM has improved, doing HEP Patient denies any pain today. documented in this encounter Plan of Treatment Upcoming Encounters Date Type Specialty Care Team Description 04/07/2023 Telemedicine Orthopedics Bunny Bailey MD [address] [place] [address] 12/09/2023 Office Visit Family Medicine Becca Walter MD [address] [place] [facility] [place] [address] Scheduled Procedures Name Priority Associated [...] 02/11/2030 LUNG CANCER SCREENING - USE SMARTSET [id number] Completed 08/18/2020, 06/19/2012 GARDASIL-HPV IMMUNIZATION SERIES Aged [...] the patient have Health Care Power of Funeral Professional? No Full Code 06/14/2012 4:23 PM 06/28/2012 5:28 PM Thi s order reflects the patients wishes and were consensually agreed upon. Question Answer Comments Discussion of Advance Directives occurred with: Not Discussed Does the patient have a Living Will? No Does the patient have Health Care Power of Funeral Professional? No Full Code 06/09/2012 2:09 PM 06/11/2012 8:40 PM Thi s order reflects the patients wishes and were consensually agreed upon. Question Answer Comments Discussion of Advance Directives occurred with: Patient Care Teams Diecast Machine Operator Relationship Specialty Start Date End Date Becca Walter MD [address] [place] [address] PCP - General Family Medicine 03/26/22 documented as of this encounter
--- OUTSIDE RECORDS SUMMARY | 2023-08-27 09:37 | External Medical Summary | Summary of Care ---
Author Name Unknown Organization [facility] Address [address] [facility] [address] Phone [phone] Care Team Providers Care Sensor Operator Name Role Phone Becca Walter MD [...] 2 and 3/4" pouch; Apply as directed #[id number] 2 Box 12 05/14/2014 Active OSTOMY SUPPLIES [...] 11/12/2022 Active Ostomy Supplies Pouch Item number [id number]. filtered pouch (erich) Change pouch daily. 30 [...] 06/28/2023 11:45 AM EST Office Visit Orthopaedics [facility] [address] [place] [address] Preston Harrington MD [address] [place] [address] 12/09/2023 11:40 AM EDT Office Visit [facility] [address] [place] [phone] Becca Walter MD [address] [place], [place] [phone] Scheduled Procedures Name Priority Associated Diagnoses Date/Ti [...] 02/11/2030 LUNG CANCER SCREENING - USE SMARTSET [id number] Completed 08/18/2020, 06/19/2012 GARDASIL-HPV IMMUNIZATION SERIES Aged [...] the patient have Health Care Power of Seafood Team Member? No Full Code 06/14/2012 4:23 PM 06/28/2012 5:28 PM Thi s order reflects the patients wishes and were consensually agreed upon. Question Answer Comments Discussion of Advance Directives occurred with: Not Discussed Does the patient have a Living Will? No Does the patient have Health Care Power of Seafood Team Member? No Full Code 06/09/2012 2:09 PM 06/11/2012 8:40 PM Thi s order reflects the patients wishes and were consensually agreed upon. Question Answer Comments Discussion of Advance Directives occurred with: Patient Care Teams Sensor Operator Relationship Specialty Start Date End Date Becca Walter MD [address] [place] [address] PCP - General Family Medicine 03/26/22 documented as of this encounter
--- OUTSIDE RECORDS SUMMARY | 2023-08-27 09:37 | External Medical Summary | Summary of Care ---
Author Name Unknown Organization [facility] Address [address] [facility] [place] [address] Phone [phone] Care Team Providers Care Installation Technician Name Role Phone Becca Walter MD Primary Care Provid er Reason for Visit * Reason Comments Follow Up Left shoulder Encounter Details Date Type Department Care Team (Late st Contact Info) Description 06/28/2023 11:45 AM EST Office Visit Orthopaedics [facility] [address] [place] [address] Preston Harrington MD [address] [place] [address] Chronic pain of both shoulders* Allergies Active [...] 2 and 3/4" pouch; Apply as directed #74311 2 Box 12 05/14/2014 Active OSTOMY SUPPLIES [...] 11/12/2022 Active Ostomy Supplies Pouch Item number [id number]. filtered pouch (erich) Change pouch daily. 30 [...] 06/28/2023 11:50 AM EST Hernando Manning [place] [phone] Hernando Maloney is a 57 year old male who presents [facility]/u of L shoulder [...] Symptoms have worsened. Does note that his oil distributor feels weak. No radiation of symptoms proximal [...] Preston Harrington MD Primary Care Sports Medicine [facility] Orthopa[facility] [address] [address] documented in this encounter Nursing Notes * [...] Description 12/09/2023 11:40 AM EDT Office Visit [place] [address] [place] [address] Becca Walter MD [address] [place] [address] Pending Results Name Type Priority Associated Diagnoses [...] 02/11/2030 LUNG CANCER SCREENING - USE SMARTSET 61773 Completed 08/18/2020, 06/19/2012 GARDASIL-HPV IMMUNIZATION SERIES Aged [...] the patient have Health Care Power of Roll Weigher? No Full Code 06/14/2012 4:23 PM 06/28/2012 5:28 PM Thi s order reflects the patients wishes and were consensually agreed upon. Question Answer Comments Discussion of Advance Directives occurred with: Not Discussed Does the patient have a Living Will? No Does the patient have Health Care Power of Roll Weigher? No Full Code 06/09/2012 2:09 PM 06/11/2012 8:40 PM Thi s order reflects the patients wishes and were consensually agreed upon. Question Answer Comments Discussion of Advance Directives occurred with: Patient Care Teams Installation Technician Relationship Specialty Start Date End Date Becca Walter MD [address] [facility] [place] [address] PCP - General Family Medicine 03/26/22 documented as of this encounter
--- OUTSIDE RECORDS SUMMARY | 2023-08-27 09:37 | External Medical Summary | Summary of Care ---
Author Name Unknown Organization [facility] Address [address] [facility] [place] [address] Phone [phone] Care Team Providers Care Software Sales Representative Name Role Phone Becca Walter MD Primary [...] 2 and 3/4" pouch; Apply as directed #[id number] 2 Box 12 05/14/2014 Active OSTOMY SUPPLIES [...] 11/12/2022 Active Ostomy Supplies Pouch Item number [id number]. filtered pouch (erich) Change pouch daily. 30 [...] Family Medicine Becca Walter MD [address] [place] [address] Scheduled Procedures Name Priority Associated Diagnoses Date/Ti [...] 02/11/2030 LUNG CANCER SCREENING - USE SMARTSET 03638 Completed 08/18/2020, 06/19/2012 GARDASIL-HPV IMMUNIZATION SERIES Aged [...] the patient have Health Care Power of Search Engine Marketing Specialist? No Full Code 06/14/2012 4:23 PM 06/28/2012 5:28 PM Thi s order reflects the patients wishes and were consensually agreed upon. Question Answer Comments Discussion of Advance Directives occurred with: Not Discussed Does the patient have a Living Will? No Does the patient have Health Care Power of Search Engine Marketing Specialist? No Full Code 06/09/2012 2:09 PM 06/11/2012 8:40 PM Thi s order reflects the patients wishes and were consensually agreed upon. Question Answer Comments Discussion of Advance Directives occurred with: Patient Care Teams Software Sales Representative Relationship Specialty Start Date End Date Becca Walter MD [address] [place] [address] PCP - General Family Medicine 03/26/22 documented as of this encounter
--- OUTSIDE RECORDS SUMMARY | 2023-08-27 09:37 | External Medical Summary | Summary of Care ---
Author Name Unknown Organization [facility] Address [address] [facility] [address] Phone [phone] Care Team Providers Care Water Superintendent Name Role Phone Becca Walter MD Primary [...] 2 and 3/4" pouch; Apply as directed #71554 2 Box 12 05/14/2014 Active OSTOMY SUPPLIES [...] 11/12/2022 Active Ostomy Supplies Pouch Item number [id number]. filtered pouch (erich) Change pouch daily. 30 [...] AM EST Office Visit Orthopaedics [facility] [address] [place] [address] Preston Harrington MD [address] [place] [address] 12/09/2023 11:40 AM EDT Office Visit [facility] [address] [place] [phone] Becca Walter MD [address] [place], [place] [phone] Scheduled Procedures Name Priority Associated Diagnoses Date/Ti [...] 02/11/2030 LUNG CANCER SCREENING - USE SMARTSET 88661 Completed 08/18/2020, 06/19/2012 GARDASIL-HPV IMMUNIZATION SERIES Aged [...] the patient have Health Care Power of Claim Review Medical Director? No Full Code 06/14/2012 4:23 PM 06/28/2012 5:28 PM Thi s order reflects the patients wishes and were consensually agreed upon. Question Answer Comments Discussion of Advance Directives occurred with: Not Discussed Does the patient have a Living Will? No Does the patient have Health Care Power of Claim Review Medical Director? No Full Code 06/09/2012 2:09 PM 06/11/2012 8:40 PM Thi s order reflects the patients wishes and were consensually agreed upon. Question Answer Comments Discussion of Advance Directives occurred with: Patient Care Teams Water Superintendent Relationship Specialty Start Date End Date Becca Walter MD [address] [place] [address] PCP - General Family Medicine 03/26/22 documented as of this encounter
--- OUTSIDE RECORDS SUMMARY | 2023-08-27 09:37 | External Medical Summary | Summary of Care ---
Author Name Unknown Organization [facility] Address [address] [facility] [address] Phone [phone] Care Team Providers Care Lumber Press Operator Name Role Phone Becca Walter MD [...] 2 and 3/4" pouch; Apply as directed #65583 2 Box 12 05/14/2014 Active OSTOMY SUPPLIES [...] 11/12/2022 Active Ostomy Supplies Pouch Item number [id number]. filtered pouch (erich) Change pouch daily. 30 [...] 06/28/2023 11:45 AM EST Office Visit Orthopaedics [facility] [address] [place] [address] Preston Harrington MD [address] [place] [address] 12/09/2023 11:40 AM EDT Office Visit [facility] [address] [place] [phone] Becca Walter MD [address] [place], [place] [phone] Scheduled Procedures Name Priority Associated Diagnoses Date/Ti [...] 02/11/2030 LUNG CANCER SCREENING - USE SMARTSET 18491 Completed 08/18/2020, 06/19/2012 GARDASIL-HPV IMMUNIZATION SERIES Aged [...] the patient have Health Care Power of Blockman? No Full Code 06/14/2012 4:23 PM 06/28/2012 5:28 PM Thi s order reflects the patients wishes and were consensually agreed upon. Question Answer Comments Discussion of Advance Directives occurred with: Not Discussed Does the patient have a Living Will? No Does the patient have Health Care Power of Blockman? No Full Code 06/09/2012 2:09 PM 06/11/2012 8:40 PM Thi s order reflects the patients wishes and were consensually agreed upon. Question Answer Comments Discussion of Advance Directives occurred with: Patient Care Teams Lumber Press Operator Relationship Specialty Start Date End Date Becca Walter MD [address] [place] [address] PCP - General Family Medicine 03/26/22 documented as of this encounter
--- OUTSIDE RECORDS SUMMARY | 2023-08-27 09:37 | External Medical Summary | Summary of Care ---
Author Name Unknown Organization [facility] Address [address] [facility] [address] Phone [phone] Care Team Providers Care Video News Editor Name Role Phone Becca Walter MD Primary [...] 2 and 3/4" pouch; Apply as directed #[id number] 2 Box 12 05/14/2014 Active OSTOMY SUPPLIES [...] 11/12/2022 Active Ostomy Supplies Pouch Item number [id number]. filtered pouch (erich) Change pouch daily. 30 [...] 06/28/2023 11:45 AM EST Office Visit Orthopaedics [facility] [address] [place] [address] Preston Harrington MD [address] [place] [address] 12/09/2023 11:40 AM EDT Office Visit [facility] [address] [place] [phone] Becca Walter MD [address] [place], [place] [phone] Scheduled Procedures Name Priority Associated Diagnoses Date/Ti [...] 02/11/2030 LUNG CANCER SCREENING - USE SMARTSET [id number] Completed 08/18/2020, 06/19/2012 GARDASIL-HPV IMMUNIZATION SERIES Aged [...] the patient have Health Care Power of Butadiene Converter Helper? No Full Code 06/14/2012 4:23 PM 06/28/2012 5:28 PM Thi s order reflects the patients wishes and were consensually agreed upon. Question Answer Comments Discussion of Advance Directives occurred with: Not Discussed Does the patient have a Living Will? No Does the patient have Health Care Power of Butadiene Converter Helper? No Full Code 06/09/2012 2:09 PM 06/11/2012 8:40 PM Thi s order reflects the patients wishes and were consensually agreed upon. Question Answer Comments Discussion of Advance Directives occurred with: Patient Care Teams Video News Editor Relationship Specialty Start Date End Date Becca Walter MD [address] [place] [address] PCP - General Family Medicine 03/26/22 documented as of this encounter
--- OUTSIDE RECORDS SUMMARY | 2023-08-27 09:38 | External Medical Summary | Summary of Care ---
Author Name Unknown Organization [facility] Address [address] [facility] [place] [address] Phone [phone] Care Team Providers Care Licensed Architect Name Role Phone Becca Walter MD Primary Care Provid er Encounter Details Date Type Department Care Team Description 02/24/2023 Telephone Orthopaedics [facility] [address] [place] [address] Bunny Bailey MD [address] [place] [phone] Allergies Active Allergy Reactions Severity Noted Date Comments Chocolate 12/22/2022 blisters documented as of this encounter (statuses as of 03/01/2023) Medications Medication Sig Dispensed Refills Start Date End Date Status MEDIPORE H SURGICAL 2"X10YD TAPEIndications:Col ostomy status (HCC) Apply as directed 4 Each 07/23/2013 Active OSTOMY SUPPLIES POUCH MISCIndications:Col ostomy status (HCC) 2 and 3/4" pouch; Apply as directed #[id number] 2 Box 12 05/14/2014 Active OSTOMY SUPPLIES MISCIndications:Col ostomy status (HCC) skin prep wipes 1 Box 05/14/2014 Active Naproxen Sodium 220 MG Oral [...] 11/12/2022 Active Ostomy Supplies Pouch Item number [id number]. filtered pouch (erich) Change pouch daily. 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 Advised him that at his last visit it was recommended he see Dr. Bailey in 4 weeks to discuss return to full activities, he is agreeable and had no further questions. * Telephone Encounter - Juju Cline LPN - 02/24/2023 2:46 PM EDT Attempted to contact patient returning call that was left on today, to call patient back he had a few questions Left message for patient to call the office documented in this encounter Plan of Treatment Upcoming Encounters Date Type Specialty Care Team Description 03/09/2023 Office Visit Orthopedics Bunny Bailey MD [address] [place] [address] 12/09/2023 Office Visit Family Medicine Becca Walter MD [address] [facility] [place] [address] Scheduled Procedures Name Priority Associated Diagnoses Date/Ti [...] 02/11/2030 LUNG CANCER SCREENING - USE SMARTSET [id number] Completed 08/18/2020, 06/19/2012 GARDASIL-HPV IMMUNIZATION SERIES Aged [...] the patient have Health Care Power of Machine Clothing Replacer? No Full Code 06/14/2012 4:23 PM 06/28/2012 5:28 PM Thi s order reflects the patients wishes and were consensually agreed upon. Question Answer Comments Discussion of Advance Directives occurred with: Not Discussed Does the patient have a Living Will? No Does the patient have Health Care Power of Machine Clothing Replacer? No Full Code 06/09/2012 2:09 PM 06/11/2012 8:40 PM Thi s order reflects the patients wishes and were consensually agreed upon. Question Answer Comments Discussion of Advance Directives occurred with: Patient Care Teams Licensed Architect Relationship Specialty Start Date End Date Becca Walter MD [address] [place] [address] PCP - General Family Medicine 03/26/22 documented as of this encounter
--- OUTSIDE RECORDS SUMMARY | 2023-08-27 09:38 | External Medical Summary | Summary of Care ---
Author Name Unknown Organization [facility] Address [address] [facility] [place] [address] Phone [phone] Care Team Providers Care Level Vial Inspector Name Role Phone Becca Walter MD Primary [...] 2 and 3/4" pouch; Apply as directed #[id number] 2 [address] 05/14/2014 Active OSTOMY SUPPLIES [...] 11/12/2022 Active Ostomy Supplies Pouch Item number [id number]. filtered pouch (erich) Change pouch daily. 30 [...] Family Medicine Becca Walter MD [address] [place] [address] Scheduled Procedures Name Priority Associated Diagnoses Date/Ti [...] 02/11/2030 LUNG CANCER SCREENING - USE SMARTSET 55782 Completed 08/18/2020, 06/19/2012 GARDASIL-HPV IMMUNIZATION SERIES Aged [...] the patient have Health Care Power of Venture Capital Analyst? No Full Code 06/14/2012 4:23 PM 06/28/2012 5:28 PM Thi s order reflects the patients wishes and were consensually agreed upon. Question Answer Comments Discussion of Advance Directives occurred with: Not Discussed Does the patient have a Living Will? No Does the patient have Health Care Power of Venture Capital Analyst? No Full Code 06/09/2012 2:09 PM 06/11/2012 8:40 PM Thi s order reflects the patients wishes and were consensually agreed upon. Question Answer Comments Discussion of Advance Directives occurred with: Patient Care Teams Level Vial Inspector Relationship Specialty Start Date End Date Becca Walter MD [address] [place] [address] PCP - General Family Medicine 03/26/22 documented as of this encounter
--- OUTSIDE RECORDS SUMMARY | 2023-08-27 09:38 | External Medical Summary | Summary of Care ---
Author Name Unknown Organization [facility] Address [address] [facility] [place] [address] Phone [phone] Care Team Providers Care Directory Assistance Operator Name Role Phone Becca Walter MD [...] 2 and 3/4" pouch; Apply as directed #[id number] 2 [address] 05/14/2014 Active OSTOMY SUPPLIES [...] 11/12/2022 Active Ostomy Supplies Pouch Item number [id number]. filtered pouch (erich) Change pouch daily. 30 [...] Family Medicine Becca Walter MD [address] [place] [address] Scheduled Procedures Name Priority Associated Diagnoses Date/Ti [...] 02/11/2030 LUNG CANCER SCREENING - USE SMARTSET [id number] Completed 08/18/2020, 06/19/2012 GARDASIL-HPV IMMUNIZATION SERIES Aged [...] the patient have Health Care Power of Rn Clinical Resource? No Full Code 06/14/2012 4:23 PM 06/28/2012 5:28 PM Thi s order reflects the patients wishes and were consensually agreed upon. Question Answer Comments Discussion of Advance Directives occurred with: Not Discussed Does the patient have a Living Will? No Does the patient have Health Care Power of Rn Clinical Resource? No Full Code 06/09/2012 2:09 PM 06/11/2012 8:40 PM Thi s order reflects the patients wishes and were consensually agreed upon. Question Answer Comments Discussion of Advance Directives occurred with: Patient Care Teams Directory Assistance Operator Relationship Specialty Start Date End Date Becca Walter MD [address] [place] [address] PCP - General Family Medicine 03/26/22 documented as of this encounter
--- OUTSIDE RECORDS SUMMARY | 2023-08-27 09:38 | External Medical Summary | Summary of Care ---
Author Name Unknown Organization [facility] Address [address] [facility] [place] [address] Phone [phone] Care Team Providers Care Supervisor Grading Name Role Phone Becca Walter MD Primary [...] 2 and 3/4" pouch; Apply as directed #[id number] 2 [address] 05/14/2014 Active OSTOMY SUPPLIES [...] 11/12/2022 Active Ostomy Supplies Pouch Item number [id number]. filtered pouch (erich) Change pouch daily. 30 [...] Family Medicine Becca Walter MD [address] [place] [address] Scheduled Procedures Name Priority Associated Diagnoses Date/Ti [...] 02/11/2030 LUNG CANCER SCREENING - USE SMARTSET 49897 Completed 08/18/2020, 06/19/2012 GARDASIL-HPV IMMUNIZATION SERIES Aged [...] the patient have Health Care Power of Bean Weigher? No Full Code 06/14/2012 4:23 PM 06/28/2012 5:28 PM Thi s order reflects the patients wishes and were consensually agreed upon. Question Answer Comments Discussion of Advance Directives occurred with: Not Discussed Does the patient have a Living Will? No Does the patient have Health Care Power of Bean Weigher? No Full Code 06/09/2012 2:09 PM 06/11/2012 8:40 PM Thi s order reflects the patients wishes and were consensually agreed upon. Question Answer Comments Discussion of Advance Directives occurred with: Patient Care Teams Supervisor Grading Relationship Specialty Start Date End Date Becca Walter MD [address] [place] [address] PCP - General Family Medicine 03/26/22 documented as of this encounter
--- OUTSIDE RECORDS SUMMARY | 2023-08-27 09:38 | External Medical Summary | Summary of Care ---
Author Name Unknown Organization [facility] Address [address] [facility] [place] [address] Phone [phone] Care Team Providers Care First Front Ventilator Name Role Phone Becca Walter MD Primary [...] 2 and 3/4" pouch; Apply as directed #[id number] 2 [address] 05/14/2014 Active OSTOMY SUPPLIES [...] 11/12/2022 Active Ostomy Supplies Pouch Item number [id number]. filtered pouch (erich) Change pouch daily. 30 [...] Family Medicine Becca Walter MD [address] [place] [address] Scheduled Procedures Name Priority Associated Diagnoses Date/Ti [...] 02/11/2030 LUNG CANCER SCREENING - USE SMARTSET 58266 Completed 08/18/2020, 06/19/2012 GARDASIL-HPV IMMUNIZATION SERIES Aged [...] the patient have Health Care Power of Ship Self Defense System Mk1 Operator? No Full Code 06/14/2012 4:23 PM 06/28/2012 5:28 PM Thi s order reflects the patients wishes and were consensually agreed upon. Question Answer Comments Discussion of Advance Directives occurred with: Not Discussed Does the patient have a Living Will? No Does the patient have Health Care Power of Ship Self Defense System Mk1 Operator? No Full Code 06/09/2012 2:09 PM 06/11/2012 8:40 PM Thi s order reflects the patients wishes and were consensually agreed upon. Question Answer Comments Discussion of Advance Directives occurred with: Patient Care Teams First Front Ventilator Relationship Specialty Start Date End Date Becca Walter MD [address] [place] [address] PCP - General Family Medicine 03/26/22 documented as of this encounter
[2023-08-27] MEDS ORDERED: diphenhydrAMINE 50 MG/ML VIAL IV ONE (09:45)
[2023-08-27 09:56] LABS: Partial Thromboplastin Time 29 Seconds (21-31); Prothrombin Time 10.7 Seconds (9.0-12.0)
[2023-08-27 10:04] LABS: Hematocrit (blood only) 48.9 % (42.0-52.0); Hemoglobin 16.1 g/dl (14.0-18.0); Mean Corpuscular Hemoglobin 28.5 pg (25.0-34.0); Mean Corpuscular Hgb Conc 32.9 g/dL (32.0-36.0); Mean Corpuscular Volume 86.5 fL (80.0-100.0); Mean Platelet Volume 10.6 fL (9.4-12.4); Platelet Count 195 K/uL (130-400); RDW Coefficient of Variation 13.2 % (11.5-14.5); RDW Standard Deviation 41.5 fL (36.4-46.3); Red Blood Count 5.65 M/uL (4.70-6.10); White Blood Count 10.39 K/ul (4.8-10.8)
[2023-08-27 10:05] LABS: Basophils # (auto) 0.06 K/uL (0.00-0.20); Basophils % (auto) 0.6 %; Eosinophils # (auto) 0.21 K/uL (0.00-0.50); Immature Granulocytes # (auto) 0.04 K/uL (0.01-0.20); Immature Granulocytes % (auto) 0.4 %; Lymphocytes # (auto) 2.08 K/uL (1.20-3.40); Monocytes # (auto) 1.01 K/uL (0.11-0.59); Monocytes % (auto) 9.7 %; Neutrophils # (auto) 6.99 K/uL (1.40-6.50); Neutrophils % (auto) 67.3 %; Toxic Vacuolation 1+
[2023-08-27 10:17] LABS: Alanine Aminotransferase 26 U/L (7-52); Albumin Globulin Ratio 1.3 (0.9-2); Albumin Level 3.9 gm/dl (3.4-5.0); Alkaline Phosphatase 82 U/L (34-104); Anion Gap 6 (3-11); BUN Creatinine Ratio 17.5 (10-20); Bilirubin,Total 0.3 mg/dl (0.2-1.0); Blood Urea Nitrogen 17 mg/dl (6-23); Calcium 8.8 mg/dl (8.6-10.3); Carbon Dioxide 28 mmol/L (21-32); Chloride 104 mmol/L (98-107); Creatinine Clr Calc Pharmacy 104.1 ml/min; Est GFR (African American) 97.9 ml/min; Est GFR (Non-African American) 84.5 ml/min; Globulin 3.1 gm/dl (2.5-4.0); Glucose 116 mg/dl (70-99(Fasting)); Lipase 40 U/L (11-82); Sodium 138 mmol/L (136-145); Troponin I High Sensitivity 363.2 pg/ml (0-20)
[2023-08-27] MEDS ORDERED: ONDANSETRON INJ 2 MG/ML 2 ML VIAL IV PRN (10:35)
[2023-08-27] MEDS ORDERED: MoRPHine SULFATE 10 MG/ML CARP/VIAL IV PRN (10:35)
[2023-08-27] MEDS ORDERED: ACETAMINOPHEN 325 MG TAB PO PRN (10:35)
[2023-08-27] MEDS ORDERED: ATROPINE SULFATE 0.1 MG/ML 10ML SYR IV PRN (10:35)
[2023-08-27] MEDS ORDERED: NITROGLYCERIN/D5W 100MCG/ML 20ML SYR ONE (10:38)
[2023-08-27] MEDS ORDERED: MIDAZOLAM HCL 1 MG/ML 2ML VIAL ONE (10:38)
--- NOTE | 2023-08-27 10:44 | Pre Anesthesia Assessment ---
Date of Service August 27, 2023 Pre Sedation Assessment Vital Signs Temp Pulse Resp BP Pulse Ox O2 Del Method 08/27/23 09:28 87 08/27/23 09:26 36.8 C 81 18 140/105 H 96 Room Air Cardiovascular RRR, no murmur, no edema Respiratory normal respiratory effort, lungs clear to auscultation Pre-Sedation Airway Assessment Smoking Status: Current every day smoker MALLAMPATI 3 ASA 4 Notes The planned sedation has been discussed with the patient. Informed Consent was obtained. I have identified the patient, determined the appropriateness of sedation and have assessed the patient immediately prior to the procedure. All medicine(s) and interventions are by my order.
--- NOTE | 2023-08-27 10:46 | Post Anesthesia Assessment ---
Date of Service August 27, 2023 Post Sedation Assessment Vital Signs Temp Pulse Resp BP Pulse Ox O2 Del Method 08/27/23 09:28 87 08/27/23 09:26 36.8 C 81 18 140/105 H 96 Room Air Recovery Score Activity: Moves 4 extremities Respiration: Deep Breath/Cough Circulation: +/-20% PreAnes Value Consciousness: Fully Awake Oxygen Saturation: > 92% On Room Air Discharge Sedation Level of Care: Fast Track Phase II Post Sedation Plan On clinical assessment, the patient appears to have tolerated the sedation without complications. Patient is recovering as anticipated. Patient will continue to be monitored by nursing and may be discharged when sedation discharge criteria are met per below protocol. Upon Completions of procedure up to 15 minutes continue every 5 minute vital signs and the P.A.R. score; then discharge to a Phase I or Fast Track to Phase II per the following guidelines: * Discharge Patient to appropriate Phase II area if PAR is 8 or greater or return to pre- procedure baseline. The post - procedure orders will be as directed. * If PAR score is less than 8 or not return to pre-procedure baseline then patient will follow Phase I monitoring till PAR is reached for Phase II. The Phase I may be done in procedure room or may call to secure a Phase I area. * If naloxone or flumazenil are used for reversal, hold in Phase I for continued monitoring from when last reversal dose was given for a minimum of 60 minutes or longer pending the nurse and/or physician discretion of patient condition before discharge to Phase II. Please call the Sedation Physician to re-evaluate and complete post-note for discharge to Phase II area. Do NOT discharge from procedure sedation or Phase 1 until post- sedation evaluation note is complete by procedure /sedation MD Sedation Discharge Instructions to be given to the patient at discharge to home. [facility] Procedure [facility]odes (Charges) Indication for Procedure Indication for procedure: STEMI Sedation/Anesthesia Procedure 1: Sedation/Anesthesia: 55113 Mod Sedation by the same physician;Init15 Min Child Age 5 & Up (INITIAL 15 MIN, START 0945) Total Sedation Time (minutes): 43 Procedure 2: Sedation/Anesthesia: 35666 Mod Sedation by the same physician; Ea [id number] Minutes (ADDITIONAL 28 MIN, END 1028) Total Sedation Time (minutes): 43
--- NOTE | 2023-08-27 11:18 | XRay Report ---
SINGLE VIEW CHEST CLINICAL HISTORY: Atypical chest pain FINDINGS: An AP, portable, upright chest radiograph is compared to study dated 12/30/2019. The examina tion is degraded by portable technique and apical lordotic positioning. The cardiomediastinal silhoue tte is unremarkable. Chronic interstitial thickening is similar to previous. There is mild bibasilar scarring/atelectasis. The lungs and pleural spaces are otherwise clear. No pneumothorax is seen. The bony thorax is grossly intact. IMPRESSION: No active disease in the chest. ACT 112: Negative or not required by law. Electronically signed by: Garret Mccrary M.D. 08/27/2023 11:16 AM
--- NOTE | 2023-08-27 11:19 | Cardiac Catheterization ---
ACC Data: Speech And Language Clinician Cardiac Status Clinical evaluation leading to the procedure CAD Presenation: STEMI Anginal Classification: CCS IV Heart Failure: No Cardiogenic Shock within 24 Hours: No Cardiac Arrest within 24 Hours: No Imaging Studies Past 6 Months: No Stress Studies Past 6 Months: No Coronary Anatomy Dominant: Co-Dominant Left Main (% Stenosis): Normal LAD (% Stenosis): Proximal (Mild) and Mid (100% thrombotic) D1 (% Stenosis): Normal D2 (% Stenosis): Normal D3 (% Stenosis): Normal Circumflex (% Stenosis): Mid (Long eccentric 80 to 90%) and Distal (Focal 50 to 70%) OM1 (% Stenosis): Normal OM2 (% Stenosis): Normal L PL1 (% Stenosis): Normal L PDA (% Stenosis): Normal RCA (% Stenosis): Proximal (Up to 99%) and Mid (100%) R PDA (% Stenosis): Normal R PL1 (% Stenosis): Normal Ramus (% Stenosis): Normal Diagnostic Physicians Name: Hernando Reyes MD, PhD Closure Device Percutaneous Entry Location: Radial Closure Device: Radial Band Recommendations: Medical Therapy and/or Counseling and PCI without planned CABG PCI Indication: PCI for STEMI - Unstable First Noted: First EKG Lesion Segment Name: Mid LAD Culprit Artery: Yes Stenosis Prior to Rx (%): 100% Chronic Total Occlusion: No Pre-Procedure YUN Flow: 0 Lesion Complexity: Non-High/Non-C Lesion Length (mm): 12 Thrombus Present: Yes Bifurcation Lesion: No Guidewire Across Lesion: Yes Lesion #2 Segment Name: Mid circumflex Culprit Artery: No Stenosis Prior to Rx (%): 80 to 90% Chronic Total Occlusion: No Pre-Procedure YUN Flow: 3 Previously Treated Lesion: No Lesion Complexity: Non-High/Non-C Lesion Length (mm): 15 Thrombus Present: No Bifurcation Lesion: No Guidewire Across Lesion: Yes Intraprocedure Events Significant Disection: No Perforation: No Cardiac Cath Procedure Full Procedure Date August 27, 2023 Pre-Procedure Diagnosis Pre-Procedure Diagnosis: STEMI AUC Score AUC Score: 09 Post-Procedure Diagnosis Post-Procedure Diagnosis: Severe CAD and Successful PCI Procedure(s) Performed Procedure(s) Performed: Coronary Angiography and Drug Eluting Stent Manager Spa Hernando Reyes MD, PhD Estimated Blood Loss Estimated Blood Loss: 10 mL Medication(s) Medication(s): Diphenhydramine, Fentanyl, Heparin, Lidocaine 1%, Nicardipine, Nitroglycerin and Versed Summary of Findings Brief description: Patient was brought to the cardiac catheterization suite where he was shaved and prepped in a sterile fashion. Sedated using IV Versed, fentanyl, and Benadryl. Soft tissues of the right wrist were anesthetized using 2 mL of 1% Xylocaine. The right radial artery was accessed using a modified Seldinger technique and a 6 [place] Islander radial artery glide sheath was placed. Patient was provided anticoagulation with IV heparin and antispasmodics including nicardipine and nitroglycerin. All catheters were advanced and exchanged over a 0.035 J-tip wire. Left coronary angiography was performed in orthogonal views with a 6 [place] Islander EBU 3.0 guide catheter. We decided to proceed immediately to PCI because of the findings on initial coronary angiography. ACT was checked intermittently throughout the case and additional heparin provided as needed to maintain therapeutic ACT. BMW reversal guidewire was advanced through the guide catheter and eventually positioned distally in the LAD. Lesion in the LAD was predilated with a 2.5 x 12 mm trek balloon up to 12 hannah Lesion was stented using a 2.75 x 15 mm Paul drug-eluting stent deployed at 12 hannah Stent balloon was removed and angiography performed Guidewire was removed and angiography performed. Guide catheter was removed and we decided to proceed with completion of the diagnostic coronary angiography. Right coronary angiography was performed in orthogonal views with a 5 [place]er JR4 diagnostic catheter. Given the apparent chronic total occlusion in the RCA we decided to proceed with PCI of the circumflex. The 6 [place] Islander EBU 3.0 guide catheter was reinserted and used to engage the left main coronary. The BMW universal guidewire was then advanced with some difficulty through the circumflex and positioned distally. Lesion was predilated with a 2.5 x 12 mm up to 14 hannah Lesion was stented with a 2.5 x 18 mm Paul drug-eluting stent deployed at 17 hannah Stent balloon was removed and angiography performed. The guidewire was then removed and final angiographic evaluation was performed. Guide catheter was removed. Radial artery sheath was removed. Hemostasis was obtained using the radial band. Patient remained hemodynamically stable and was admitted to the ICU for further workup and management. This ended the case. Coronary angiography findings: HMA-rrqec-qfkbrsb vessel trifurcating into LAD, circumflex, and ramus. No more than mild luminal irregularities. OBF-caiyq-gbzcfjj vessel. First major branch is a large branching septal trunk. Then, there is a large caliber branching first diagonal. The proximal LAD has mild disease but the mid vessel is occluded. Initially with YUN 0 flow but after medications and additional injections there is YUN I flow. There is also a medium caliber second diagonal branch and the LAD is seen to wrap the apex distally. Thrombus in the mid LAD is noted. A large third diagonal is also noted on later imaging. YIo-nmnut-feanspa and codominant vessel. Travels in the AV groove where there is mild disease. It provides a small OM1 followed by a large OM 2. The intervening AV groove mid segment has 80 to 90% long eccentric stenosis. After the OM 2 the AV groove vessel continues as a medium caliber vessel providing a large PDA and terminating distally as a small caliber left PDA. These branch vessels have no more than mild luminal irregularities. The distal AV groove circumflex just after the OM 2 ostium has a focal 50 to 70% stenosis. There is YUN-3 flow in the circumflex. RCA-this is a large caliber with a proximal 99% stenosis. YUN I flow through either a small channel or right to right bridging collaterals but then mid segment is 100% occluded. Distally the RCA and its branches fill via left to right collateralization. There appears to be a relatively large posterior lateral branch and a smaller PDA. PCI of LAD-0% residual stenosis post PCI -YUN-3 flow post PCI -No evidence of dissection or perforation post PCI PCI of left circumflex-0% residual stenosis post PCI YUN-3 flow post PCI No evidence of dissection or perforation post PCI Angiographically moderate borderline stenosis in the distal AV groove vessel in some views. Summary: 1. Severe multivessel coronary artery disease including chronic total occlusion of the RCA, severe stenosis in the circumflex, and acute thrombotic occlusion of the LAD which is culprit for acute SD. 2. Successful PCI for acute anterior ST elevation SD with drug-eluting stent stent in the LAD and a second drug-eluting stent in the nonculprit circumflex. 3. Dual antiplatelet therapy with aspirin 81 mg daily and Brilinta 90 mg p.o. twice daily for 1 to 2 years. 4. Initiate guideline directed medical therapy for secondary prevention of coronary disease to include; low-dose aspirin, high intensity statin therapy, beta-darrick, and JONI inhibitor/ARB as tolerated given his underlying diabetes. 5. Obtain echocardiogram to evaluate EF, wall motion, and valvular function. 6. Strongly encourage CARDIAC REHAB. Hemodynamics Rest Ao:: 126/77 mmHg Final Ao: 122/74 mmHg LV: Not performed Recommendations Recommendations: Medical Therapy and/or Counseling and PCI without planned CABG Radiation Exposure (mGy) 3099 mGy, fluoroscopy time 11.2 minutes Contrast (mls) 240 mL. Anesthesia 1 mg Versed, 50 mcg fentanyl IV. Start time 0945, end time 1028 Procedural Complication(s) None Disposition ICU I attest to the content of the Intraoperative Record and any orders documented therein. Any exceptions are noted below. [email or web address] Card Cath Procedure Codes Cardiac Catheterization Procedure 1: Cardiovascular Cath Procedures: 36184 Coronaries Moderate Sedation Procedure 1: Sedation/Anesthesia: 89643 Mod Sedation by the same physician;Init15 Min Child Age 5 & Up (Initial 15 minutes, start time 0945) Procedure 2: Sedation/Anesthesia: 02802 Mod Sedation by the same physician; Ea [id number] Minutes (Additional 28 minutes, end time 1028) Stenting Procedure 1: Cardiovascular Stent Procedures: 11236 Perc transluminal revascularization of acute sub/total occl, aMI (LAD) Procedure 2: Cardiovascular Stent Procedures: 97012 Ea addl branch of a major coronary artery (LCx) PG Care Time/CCT Total # of Minutes Spent Total Time Spent with Patient: Total time spent is greater than 50% in coordination of care (as documented) at patient's floor/unit and/or counseling patient:
--- NOTE | 2023-08-27 11:25 | Critical Care Consultation ---
Date of Consultation August 27, 2023 Assessment & Plan (1) Acute KY, anterolateral wall: Plan Impression: 62-year-old male with a acute anterior KY status post drug-eluting stent to the LAD and circumflex. He is being observed in the ICU and is currently chest pain-free and hemodynamically stable. Recommendations: 1. Acute coronary syndrome: Status post cardiac intervention. Echocardiogram and formal cardiology consultation are pending. Continue antiplatelet agents per cardiology. 2. Patient has been initiated on metoprolol in addition to his aspirin and Brilinta. Await echocardiogram and consider his response to beta-darrick. May need addition of JONI inhibitor. 3. The patient will require cardiac rehab in the outpatient setting. 4. Smoking cessation was recommended. 5. Patient with previous diagnosis of pancreatitis. No signs or symptoms concerning at this time and lipase is normal at 40. Outpatient follow-up with GI if not previously conducted. Anticipate that the patient should do well. Will observe in the ICU 24 hours per protocol. Should be able to downgrade tomorrow morning. Ultimate disposition will be deferred to cardiology and the patient's primary admitting service. Thanks for the opportunity participate in the care of this patient. Feel free to contact us with questions or concerns History of Present Illness Attending Physician: Jd Arguelles MD History of Present Illness Asked by hospitalist to assist in evaluation management this patient presenting with ST elevation myocardial infarction. History is obtained from discussion with the patient as well as review the electronic medical record. The patient is a 62-year-old male with a [id number] history of tobacco abuse who does not seek medical care on a regular basis. He developed chest discomfort yesterday evening which resolved spontaneously but then had recurrence of substernal chest pain 45 minutes prior to arrival in the emergency room. Patient received fentanyl nitro and aspirin by EMS on transport. EKG and route showed ST segment elevation in the anterior lateral distribution which was confirmed on EKG in the emergency room. Heart alert was called. The patient was taken urgently to the [facility]. Patient received drug-eluting stents to the mid LAD as well as balloon angioplasty and a drug-eluting stent to the mid circumflex. He is brought back to the ICU hemodynamically stable. Catheterization was performed via radial approach. He is not having any chest pain currently. He denies any shortness of breath. No nausea or vomiting. No syncope or presyncope. The patient denies antecedent fevers chills night sweats or other constitutional symptoms. Allergies Allergy/AdvReac Type Severity Reaction Status Date / Time No Known Allergies Allergy Mild Unverified 12/30/19 00:08 Home Medications Medication Instructions Recorded Confirmed Type gemfibrozil 600 mg tablet 600 mg PO BID #60 tabs 12/30/19 Rx niacin 500 mg capsule,extended 500 mg PO DAILY #30 caps 12/30/19 Rx release Patient History Medical History (Updated 08/27/23 @ 09:25 by Richard Campbell DO) No pertinent past medical history Surgical History Hx of colostomy Social History Smoking Status: Current every day smoker Tobacco Type: Cigarettes Cigarettes Per Day: 20; Second Hand Exposure: No; Do You Dip or Chew Tobacco: No; Tobacco Cessation Education Requested by Patient: No Hx Alcohol Use: Yes Alcohol type: wine and hard liquor Hx Substance Use: No Preferred Language: Turkmen Communication Ability: Effective Brineyard Supervisor Required: No Beliefs That Will Affect Care: None marital status: Single Current Living Situation: Alone Other Information That Helps Us Care for You: No Feels Safe at Home: Yes Assistive Devices: Glasses Review of Systems Review of Systems: All systems reviewed & are unremarkable except as noted in Subjective Physical Exam Constitutional: WD/WN, vitals as above Neck: trachea midline, no thyromegaly Respiratory: normal respiratory effort, lungs clear to auscultation Cardiovascular: RRR, no murmur, no edema Gastrointestinal (Abdomen): normal bowel sounds, soft, nontender, no hepatosplenomegaly Musculoskeletal: Extremities: extremities normal to inspection Skin: no rashes, warm and dry Neurologic: Nonfocal exam Lymphatic: no cervical lymphadenopathy Results & Data Results & Data Vital Signs (Past 12 Hours) Vital Signs Temp Pulse Resp BP Pulse Ox O2 Del Method 08/27/23 09:28 87 08/27/23 09:26 36.8 C 81 18 140/105 H 96 Room Air Critical Care Results & Data Vital Signs (Past 12 Hours) Vital Signs Temp Pulse Resp BP Pulse Ox O2 Del Method 08/27/23 09:28 87 08/27/23 09:26 36.8 C 81 18 140/105 H 96 Room Air Lab & Micro Results (Past 24 Hours) RBC 5.65 M/uL (4.70-6.10) 08/27/23 WBC 10.39 K/ul (4.8-10.8) 08/27/23 Hgb 16.1 g/dl (14.0-18.0) 08/27/23 Hct 48.9 % (42.0-52.0) 08/27/23 MCV 86.5 fL (80.0-100.0) 08/27/23 MCH 28.5 pg (25.0-34.0) 08/27/23 MCHC 32.9 g/dL (32.0-36.0) 08/27/23 RDW Standard Deviation 41.5 fL (36.4-46.3) 08/27/23 RDW Coefficient of Variation 13.2 % (11.5-14.5) 08/27/23 Plt Count 195 K/uL (130-400) 08/27/23 MPV 10.6 fL (9.4-12.4) 08/27/23 Neutrophils (%) (Auto) 67.3 % 08/27/23 Lymphocytes (%) (Auto) 20.0 % 08/27/23 Monocytes # (Auto) 1.01 K/uL (0.11-0.59) H 08/27/23 Eosinophils # (Auto) 0.21 K/uL (0.00-0.50) 08/27/23 Immature Granulocyte % (Auto) 0.4 % 08/27/23 Neutrophils # (Auto) 6.99 K/uL (1.40-6.50) H 08/27/23 Lymphocytes # (Auto) 2.08 K/uL (1.20-3.40) 08/27/23 Monocytes # (Auto) 1.01 K/uL (0.11-0.59) H 08/27/23 Eosinophils # (Auto) 0.21 K/uL (0.00-0.50) 08/27/23 Basophils # (Auto) 0.06 K/uL (0.00-0.20) 08/27/23 Immature Granulocyte # (Auto) 0.04 K/uL (0.01-0.20) 4 Toxic Vacuolation 1+ 08/27/23 Na 138 mmol/L (136-145) 08/27/23 K TNP 08/27/23 Cl 104 mmol/L (98-107) 08/27/23 CO2 28 mmol/L (21-32) 08/27/23 Anion Gap 6 (3-11) 08/27/23 BUN 17 mg/dl (6-23) 08/27/23 Creatinine 0.97 mg/dl (0.6-1.4) 08/27/23 Estimated GFR ( Amer) 97.9 ml/min 08/27/23 Estimated GFR (Non-Af Amer) 84.5 ml/min 08/27/23 BUN/Creatinine Ratio 17.5 (10-20) 08/27/23 Glu 116 mg/dl (70-99(Fasting)) H 08/27/23 Ca 8.8 mg/dl (8.6-10.3) 08/27/23 Total Bilirubin 0.3 mg/dl (0.2-1.0) 08/27/23 AST TNP 08/27/23 ALT 26 U/L (7-52) 08/27/23 Alkaline Phosphatase 82 U/L (34-104) 08/27/23 TP 7.0 gm/dl (6.0-8.3) 08/27/23 Albumin 3.9 gm/dl (3.4-5.0) 08/27/23 Globulin 3.1 gm/dl (2.5-4.0) 08/27/23 Albumin/Globulin Ratio 1.3 (0.9-2) 08/27/23 Calcium Level 8.8 mg/dl (8.6-10.3) 08/27/23 09:31 Prothromb Time International Ratio 1.0 (0.9-1.1) 08/27/23 09:3 1 Diagnostic Findings (Past 24 Hours) Chest X-Ray 08/27/23 09:24 SINGLE VIEW CHEST CLINICAL HISTORY: Atypical chest pain FINDINGS: An AP, portable, upright chest radiograph is compared to study dated 12/30/2019. The examination is degraded by portable technique and apical lordotic positioning. The cardiomediastinal silhouette is unremarkable. Chronic interstitial thickening is similar to previous. There is mild bibasilar scarring/atelectasis. The lungs and pleural spaces are otherwise clear. No pneumothorax is seen. The bony thorax is grossly intact. IMPRESSION: No active disease in the chest. ACT 112: Negative or not required by law. Electronically signed by: Garret Mccrary M.D. 08/27/2023 11:16 AM RT Ventilator Mngmt (Last Documented) Ventilator Ordered Settings Respiratory Rate 18 08/27/23 09:26 Ventilator - PT Measurements Respiratory Rate 18 Coding Level of Care Code 68083 IN/OBS CONSULT LVL 4,60M Diagnoses Acute KY, anterolateral wall I21.09
[2023-08-27] MEDS: ATORVASTATIN 40 MG TAB PO SCH (11:30)
[2023-08-27 11:52] LABS: Basophils # (auto) 0.07 K/uL (0.00-0.20); Basophils % (auto) 0.6 %; Eosinophils # (auto) 0.13 K/uL (0.00-0.50); Eosinophils % (auto) 1.1 %; Hematocrit (blood only) 50.8 % (42.0-52.0); Hemoglobin 16.5 g/dl (14.0-18.0); Immature Granulocytes # (auto) 0.05 K/uL (0.01-0.20); Immature Granulocytes % (auto) 0.4 %; Lymphocytes % (auto) 12.9 %; Mean Corpuscular Hgb Conc 32.5 g/dL (32.0-36.0); Mean Corpuscular Volume 86.2 fL (80.0-100.0); Mean Platelet Volume 10.5 fL (9.4-12.4); Monocytes # (auto) 0.84 K/uL (0.11-0.59); Monocytes % (auto) 7.2 %; Neutrophils # (auto) 9.02 K/uL (1.40-6.50); Neutrophils % (auto) 77.8 %; Platelet Count 218 K/uL (130-400); RDW Coefficient of Variation 13.2 % (11.5-14.5); RDW Standard Deviation 40.9 fL (36.4-46.3); Red Blood Count 5.89 M/uL (4.70-6.10); White Blood Count 11.61 K/ul (4.8-10.8)
[2023-08-27 12:10] LABS: Chol HDL Ratio 4.4 (0-5); Potassium 4.2 mmol/L (3.5-5.1)
[2023-08-27 12:14] LABS: Estimated Average Glucose 134 mg/dl; Hemoglobin A1C 6.3 % (4.5-5.6)
[2023-08-27] MEDS: SODIUM CHLORIDE 0.9% 1,000 ML IV SCH (13:37)
--- NOTE | 2023-08-27 15:50 | History & Physical Report ---
Date of Service August 27, 2023 Assessment & Plan (1) STEMI (ST elevation myocardial infarction): (2) Acute ID, anterolateral wall: Plan: 62-year-old male with PMH tobacco abuse, dyslipidemia, colostomy due to diverticulitis who presented with chest pain. EKG showed ST elevations in the anterior lateral leads and patient was taken urgently to the [facility]. Patient received SANJIV to mid LAD and balloon angioplasty and SANJIV to mid circumflex ASA, Brilinta, statin, beta-darrick Echo Cardiology consult DVT PROPHYLAXIS Defer to ICU/interventional cardiology Patient seen collaboration with Dr. Arguelles. I spent a total of 60 minutes coordinating, documenting, and providing care for this patient excluding time spent in the performance of separately billed services. This included personally reviewing all current laboratories and imaging studies, medication reconciliation, outpatient chart review, and discussion with specialists. Admission and Anticipated Discharge Date Admission Date: August 27, 2023 History of Present Illness Chief Complaint: Chest pain Primary Care Provider: Enid Paul DO 62-year-old male with PMH dyslipidemia, colostomy secondary to diverticulitis, and other problems listed below who presents to the ED for evaluation of chest pain. History obtained from the patient and review of outpatient PCP records. Patient reports he has been experiencing episodes of chest pain over the past 3 days. Reports symptoms would last for about 15 to 30 minutes and resolve on their own. States pain was midsternal and severe. Reports some radiation up into the neck. Today, patient had associated diaphoresis. He called EMS and was brought to the ED for further evaluation. EKG showed ST elevation in the anterior lateral leads. Heart alert was called and patient was taken urgently to the [facility]. He received SANJIV to the mid LAD and balloon angioplasty and SANJIV to the mid circumflex. Patient was taken to the ICU post procedure. Patient reports he is currently chest pain-free. Offers no complaints at this time. Allergies Allergy/AdvReac Type Severity Reaction Status Date / Time No Known Allergies Allergy Mild Unverified 12/30/19 00:08 Home Medications Medication Instructions Recorded Confirmed Type atorvastatin 20 mg tablet 20 mg PO DAILY 08/27/23 08/27/23 History Past Med/Surg History Medical History Dyslipidemia Surgical History Hx of colostomy Due to diverticulitis Social History Smoking Status: Current every day smoker Tobacco Type: Cigarettes Cigarettes Per Day: 20; Second Hand Exposure: No; Do You Dip or Chew Tobacco: No; Hx Alcohol Use: Yes Alcohol type: wine and hard liquor Hx Substance Use: No Preferred Language: Sami Communication Ability: Effective Director Of Casino Required: No Beliefs That Will Affect Care: None marital status: Single Current Living Situation: Alone Feels Safe at Home: Yes Assistive Devices: Glasses Review of Systems Review of Systems: All systems reviewed & are unremarkable except as noted in Subjective Physical Exam Constitutional: WD/WN, vitals as above no acute distress Eyes: PERRL, conjunctivae normal, anicteric sclerae ENMT: external ear and nose normal, oropharynx normal Respiratory: normal respiratory effort, lungs clear to auscultation Cardiovascular: Rate/Rhythm: regular rate and regular rhythm Vessels: normal peripheral pulses Extremities: no edema Radial band in place to right wrist, CSM checks intact to right hand Gastrointestinal (Abdomen): normal bowel sounds, soft, nontender, no hepatosplenomegaly Colostomy in place Musculoskeletal: no cyanosis or clubbing, extremities motor strength 5/5 Skin: no rashes, warm and dry Neurologic: PERRL, EOMI, accommodation nl, no face palsy, no dysarthria Psychiatric: A+Ox3, euthymic affect Results & Data Results & Data Vital Signs (Past 12 Hours) Vital Signs Temp Pulse Resp BP Pulse Ox O2 Del Method 08/27/23 14:00 161/118 H 08/27/23 14:00 80 21 97 08/27/23 13:30 146/109 H 08/27/23 13:30 69 18 97 08/27/23 13:00 78 20 94 Room Air 08/27/23 13:00 153/99 H 08/27/23 12:45 159/100 H 08/27/23 12:45 79 22 93 Room Air 08/27/23 12:44 71 08/27/23 12:30 143/92 H 08/27/23 12:30 78 22 94 Room Air 08/27/23 12:16 78 17 95 Room Air 08/27/23 12:16 145/85 H 08/27/23 12:15 84 16 95 Room Air 08/27/23 12:00 138/90 08/27/23 12:00 88 25 H 96 Room Air 08/27/23 11:47 86 21 94 Room Air 08/27/23 11:47 132/70 08/27/23 11:45 76 14 95 Room Air 08/27/23 11:37 148/87 H 08/27/23 11:37 84 14 95 Room Air 08/27/23 11:30 77 15 95 Room Air 08/27/23 11:15 73 12 93 08/27/23 11:00 138/88 08/27/23 11:00 75 23 95 08/27/23 10:55 123/82 08/27/23 10:55 82 20 89 L 08/27/23 10:45 131/82 08/27/23 10:45 74 20 08/27/23 09:28 87 08/27/23 09:26 36.8 C 81 18 140/105 H 96 Room Air Laboratory Results Short CBC 08/27/23 08/27/23 Range/Units 09:31 11:33 WBC 10.39 11.61 H (4.8-10.8) K/ul Hgb 16.1 16.5 (14.0-18.0) g/dl Hct 48.9 50.8 (42.0-52.0) % Plt Count 195 218 (130-400) K/uL BMP 08/27/23 08/27/23 09:31 11:33 Sodium 138 Potassium TNP 4.2 Chloride 104 Carbon Dioxide 28 BUN 17 Creatinine 0.97 Glucose 116 H Calcium 8.8 Liver Function 08/27/23 08/27/23 Range/Units 09:31 11:33 Total Bilirubin 0.3 (0.2-1.0) mg/dl AST TNP 154 H ALT 26 (7-52) U/L Alkaline Phosphatase 82 (34-104) U/L Albumin 3.9 (3.4-5.0) gm/dl Diagnostic Findings Chest X-Ray 08/27/23 09:24 SINGLE VIEW CHEST CLINICAL HISTORY: Atypical chest pain FINDINGS: An AP, portable, upright chest radiograph is compared to study dated 12/30/2019. The examination is degraded by portable technique and apical lordotic positioning. The cardiomediastinal silhouette is unremarkable. Chronic interstitial thickening is similar to previous. There is mild bibasilar scarring/atelectasis. The lungs and pleural spaces are otherwise clear. No pneumothorax is seen. The bony thorax is grossly intact. IMPRESSION: No active disease in the chest. ACT 112: Negative or not required by law. Electronically signed by: Garret Mccrary M.D. 08/27/2023 11:16 AM Supervising Physician Co-Signing Physician Notes Patient is a 62-year-old male with history of dyslipidemia and other medical problems presents with history of chest pain. Chest pain has been episodic and ongoing for the past 3 days associated with some dyspnea. On arrival to ED, EKG showed signs of ST elevation and was taken for emergent cardiac cath. Patient postoperatively still has some chest discomfort during my encounter but otherwise denies any complaints. Patient had mid LAD, mid circumflex drug- eluting stents. I personally reviewed blood work, imaging studies, EKG. on exam patient is obese, no apparent distress, normocephalic atraumatic, EOMI, normal breath sounds, clear to auscultation, S1-S2, no murmur, trace pedal edema, abdomen soft, nontender, normal bowel sounds, alert, awake, oriented, grossly no focal deficits. STEMI S/P SANJIV to mid LAD balloon angioplasty, SANJIV to mid circumflex. Continue aspirin, Brilinta, statin, beta-darrick. Check resting echo. Appreciate cardiology input. Needs follow-up with cardiology on discharge. I personally reviewed the record. Patient is interviewed and examined at bedside. Patient's care is coordinated with Brooke Tan [facility]. Please refer to the documentation above for details of patient's presentation and for discussion of other issues.
[2023-08-27] MEDS: TICAGRELOR 90 MG TAB PO SCH (20:01)
[2023-08-27] MEDS: METOPROLOL TARTRATE 25 MG TAB PO SCH (20:01)
[2023-08-28] MEDS: SODIUM CHLORIDE 0.9% 1,000 ML IV SCH (02:44)
[2023-08-28 05:29] LABS: Basophils # (auto) 0.07 K/uL (0.00-0.20); Basophils % (auto) 0.6 %; Eosinophils # (auto) 0.16 K/uL (0.00-0.50); Eosinophils % (auto) 1.4 %; Hematocrit (blood only) 47.6 % (42.0-52.0); Hemoglobin 15.5 g/dl (14.0-18.0); Immature Granulocytes # (auto) 0.05 K/uL (0.01-0.20); Immature Granulocytes % (auto) 0.4 %; Lymphocytes # (auto) 2.11 K/uL (1.20-3.40); Lymphocytes % (auto) 18.3 %; Mean Corpuscular Hgb Conc 32.6 g/dL (32.0-36.0); Mean Corpuscular Volume 85.9 fL (80.0-100.0); Mean Platelet Volume 10.7 fL (9.4-12.4); Monocytes # (auto) 1.28 K/uL (0.11-0.59); Monocytes % (auto) 11.1 %; Neutrophils # (auto) 7.86 K/uL (1.40-6.50); Neutrophils % (auto) 68.2 %; Platelet Count 214 K/uL (130-400); RDW Coefficient of Variation 13.2 % (11.5-14.5); Red Blood Count 5.54 M/uL (4.70-6.10); White Blood Count 11.53 K/ul (4.8-10.8)
[2023-08-28 05:46] LABS: BUN Creatinine Ratio 15.2 (10-20); Calcium 8.6 mg/dl (8.6-10.3); Creatinine Clr Calc Pharmacy 104.6 ml/min; Est GFR (African American) 104.4 ml/min; Est GFR (Non-African American) 90.1 ml/min; Magnesium 1.9 mg/dl (1.7-2.4); Phosphorus 2.6 mg/dl (2.5-4.9)
[2023-08-28] MEDS: TICAGRELOR 90 MG TAB PO SCH (07:30)
[2023-08-28] MEDS: METOPROLOL TARTRATE 25 MG TAB PO SCH ×2 (07:30→20:13)
[2023-08-28] MEDS: ATORVASTATIN 40 MG TAB PO SCH (07:31)
--- NOTE | 2023-08-28 08:22 | Critical Care Progress Note ---
Date of Service August 28, 2023 Assessment & Plan (1) Acute MD, anterolateral wall: Plan Impression: 62-year-old male with a acute anterior MD status post drug-eluting stent to the LAD and circumflex. He has a chronically occluded right coronary artery. He is pain-free and hemodynamically stable Recommendations: 1. Acute coronary syndrome: Status post cardiac intervention. Echocardiogram and formal cardiology consultation are pending. Continue antiplatelet agents per cardiology. 2. Patient has been initiated on metoprolol in addition to his aspirin and Brilinta. Await echocardiogram. Blood pressure is borderline for JONI inhibitor currently. 3. The patient will require cardiac rehab in the outpatient setting. 4. Smoking cessation was recommended. 5. Patient with previous diagnosis of pancreatitis. No signs or symptoms concerning at this time and lipase is normal at 40. Outpatient follow-up with GI if not previously conducted. Patient's critical care issues appear to have resolved. Critical care services will sign off. Disposition per cardiology. Feel free to contact us with any critical care issues Admission and Anticipated Discharge Date Admission Date: August 27, 2023 Subjective Patient seen and examined. EMR reviewed. Discussed with bedside critical care nurse and rounds. Patient is without complaints this morning. He slept well. Has been up to chair. He tolerated diet. He is not having any chest pain palpitations or shortness of breath. No nausea or vomiting. No lower extremity edema. No pain in his cardiac catheterization site. He overall feels well and back to normal. Review of Systems Review of Systems: All systems reviewed & are unremarkable except as noted in Subjective Physical Exam Constitutional: WD/WN, vitals as above Neck: trachea midline, no thyromegaly Respiratory: normal respiratory effort, lungs clear to auscultation Cardiovascular: RRR, no murmur, no edema Gastrointestinal (Abdomen): normal bowel sounds, soft, nontender, no hepatosplenomegaly Musculoskeletal: Extremities: extremities normal to inspection Skin: no rashes, warm and dry Lymphatic: no cervical lymphadenopathy Results & Data Results & Data Vital Signs (Past 12 Hours) Vital Signs Temp Pulse Resp BP Pulse Ox O2 Del Method 08/28/23 07:38 36.5 C 08/28/23 07:30 77 20 08/28/23 07:20 68 18 96 08/28/23 07:10 75 16 94 08/28/23 07:00 63 25 H 94 Room Air 08/28/23 07:00 122/78 08/28/23 06:50 70 19 95 08/28/23 06:40 64 20 96 08/28/23 06:30 62 16 94 Room Air 08/28/23 06:30 119/77 08/28/23 06:20 63 19 95 08/28/23 06:10 66 19 96 08/28/23 06:01 64 14 96 08/28/23 06:01 108/81 08/28/23 05:01 119/74 08/28/23 05:01 62 18 94 08/28/23 04:30 59 L 14 94 08/28/23 04:30 123/75 08/28/23 04:00 36.6 C 08/28/23 04:00 61 14 94 08/28/23 04:00 122/75 08/28/23 03:30 111/73 08/28/23 03:30 88 31 H 96 08/28/23 03:00 120/79 08/28/23 03:00 56 L 13 96 08/28/23 02:30 66 14 94 08/28/23 02:30 119/77 08/28/23 02:00 117/78 08/28/23 02:00 61 14 94 08/28/23 01:30 118/83 08/28/23 01:30 63 15 93 08/28/23 01:00 125/77 08/28/23 01:00 63 13 93 08/28/23 00:30 138/85 08/28/23 00:30 62 17 96 08/28/23 00:00 36.4 C L 08/28/23 00:00 119/84 08/28/23 00:00 69 15 96 08/27/23 23:30 140/91 08/27/23 23:30 63 13 95 08/27/23 23:00 136/90 08/27/23 23:00 62 20 95 08/27/23 22:30 135/90 08/27/23 22:30 63 19 96 08/27/23 22:00 66 08/27/23 22:00 63 17 96 08/27/23 22:00 139/90 08/27/23 21:30 153/92 H 08/27/23 21:30 78 19 96 08/27/23 21:00 75 16 95 08/27/23 21:00 141/89 H 08/27/23 20:30 135/79 08/27/23 20:30 83 17 96 Critical Care Results & Data Vital Signs (Past 12 Hours) Vital Signs Temp Pulse Resp BP Pulse Ox O2 Del Method 08/28/23 07:38 36.5 C 08/28/23 07:30 77 20 08/28/23 07:20 68 18 96 08/28/23 07:10 75 16 94 08/28/23 07:00 63 25 H 94 Room Air 08/28/23 07:00 122/78 08/28/23 06:50 70 19 95 08/28/23 06:40 64 20 96 08/28/23 06:30 62 16 94 Room Air 08/28/23 06:30 119/77 08/28/23 06:20 63 19 95 08/28/23 06:10 66 19 96 08/28/23 06:01 64 14 96 08/28/23 06:01 108/81 08/28/23 05:01 119/74 08/28/23 05:01 62 18 94 08/28/23 04:30 59 L 14 94 08/28/23 04:30 123/75 08/28/23 04:00 36.6 C 08/28/23 04:00 61 14 94 08/28/23 04:00 122/75 08/28/23 03:30 111/73 08/28/23 03:30 88 31 H 96 08/28/23 03:00 120/79 08/28/23 03:00 56 L 13 96 08/28/23 02:30 66 14 94 08/28/23 02:30 119/77 08/28/23 02:00 117/78 08/28/23 02:00 61 14 94 08/28/23 01:30 118/83 08/28/23 01:30 63 15 93 08/28/23 01:00 125/77 08/28/23 01:00 63 13 93 08/28/23 00:30 138/85 08/28/23 00:30 62 17 96 08/28/23 00:00 36.4 C L 08/28/23 00:00 119/84 08/28/23 00:00 69 15 96 08/27/23 23:30 140/91 08/27/23 23:30 63 13 95 08/27/23 23:00 136/90 08/27/23 23:00 62 20 95 08/27/23 22:30 135/90 08/27/23 22:30 63 19 96 08/27/23 22:00 66 08/27/23 22:00 63 17 96 08/27/23 22:00 139/90 08/27/23 21:30 153/92 H 08/27/23 21:30 78 19 96 08/27/23 21:00 75 16 95 08/27/23 21:00 141/89 H 08/27/23 20:30 135/79 08/27/23 20:30 83 17 96 Lab & Micro Results (Past 24 Hours) RBC 5.54 M/uL (4.70-6.10) 08/28/23 WBC 11.53 K/ul (4.8-10.8) H 08/28/23 Hgb 15.5 g/dl (14.0-18.0) 08/28/23 Hct 47.6 % (42.0-52.0) 08/28/23 MCV 85.9 fL (80.0-100.0) 08/28/23 MCH 28.0 pg (25.0-34.0) 08/28/23 MCHC 32.6 g/dL (32.0-36.0) 08/28/23 RDW Standard Deviation 41.0 fL (36.4-46.3) 08/28/23 RDW Coefficient of Variation 13.2 % (11.5-14.5) 08/28/23 Plt Count 214 K/uL (130-400) 08/28/23 MPV 10.7 fL (9.4-12.4) 08/28/23 Neutrophils (%) (Auto) 68.2 % 08/28/23 Lymphocytes (%) (Auto) 18.3 % 08/28/23 Monocytes # (Auto) 1.28 K/uL (0.11-0.59) H 08/28/23 Eosinophils # (Auto) 0.16 K/uL (0.00-0.50) 08/28/23 Immature Granulocyte % (Auto) 0.4 % 08/28/23 Neutrophils # (Auto) 7.86 K/uL (1.40-6.50) H 08/28/23 Lymphocytes # (Auto) 2.11 K/uL (1.20-3.40) 08/28/23 Monocytes # (Auto) 1.28 K/uL (0.11-0.59) H 08/28/23 Eosinophils # (Auto) 0.16 K/uL (0.00-0.50) 08/28/23 Basophils # (Auto) 0.07 K/uL (0.00-0.20) 08/28/23 Immature Granulocyte # (Auto) 0.05 K/uL (0.01-0.20) 4 Toxic Vacuolation 1+ 08/27/23 Na 136 mmol/L (136-145) 08/28/23 K 4.0 mmol/L (3.5-5.1) 08/28/23 Cl 104 mmol/L (98-107) 08/28/23 CO2 26 mmol/L (21-32) 08/28/23 Anion Gap 6 (3-11) 08/28/23 BUN 14 mg/dl (6-23) 08/28/23 Creatinine 0.92 mg/dl (0.6-1.4) 08/28/23 Estimated GFR ( Amer) 104.4 ml/min 08/28/23 Estimated GFR (Non-Af Amer) 90.1 ml/min 08/28/23 BUN/Creatinine Ratio 15.2 (10-20) 08/28/23 Glu 111 mg/dl (70-99(Fasting)) H 08/28/23 Ca 8.6 mg/dl (8.6-10.3) 08/28/23 Phosphorus Level 2.6 mg/dl (2.5-4.9) 08/28/23 Total Bilirubin 0.3 mg/dl (0.2-1.0) 08/27/23 AST 154 U/L (13-39) H 08/27/23 ALT 26 U/L (7-52) 08/27/23 Alkaline Phosphatase 82 U/L (34-104) 08/27/23 TP 7.0 gm/dl (6.0-8.3) 08/27/23 Albumin 3.9 gm/dl (3.4-5.0) 08/27/23 Globulin 3.1 gm/dl (2.5-4.0) 08/27/23 Albumin/Globulin Ratio 1.3 (0.9-2) 08/27/23 Mg 1.9 mg/dl (1.7-2.4) 08/28/23 04:47 Calcium Level 8.6 mg/dl (8.6-10.3) 08/28/23 04:47 Prothromb Time International Ratio 1.0 (0.9-1.1) 08/27/23 09:3 1 Diagnostic Findings (Past 24 Hours) Chest X-Ray 08/27/23 09:24 SINGLE VIEW CHEST CLINICAL HISTORY: Atypical chest pain FINDINGS: An AP, portable, upright chest radiograph is compared to study dated 12/30/2019. The examination is degraded by portable technique and apical lordotic positioning. The cardiomediastinal silhouette is unremarkable. Chronic interstitial thickening is similar to previous. There is mild bibasilar scarring/atelectasis. The lungs and pleural spaces are otherwise clear. No pneumothorax is seen. The bony thorax is grossly intact. IMPRESSION: No active disease in the chest. ACT 112: Negative or not required by law. Electronically signed by: Garret Mccrary M.D. 08/27/2023 11:16 AM I & O Totals 24 Hours 08/27/23 08/28/23 08/29/23 06:59 06:59 06:59 Intake Total 1683.75 / 1683.75 Output Total 3403 / 3403 Balance -1719.25 / -1719.25 Cumulative 08/27/23 09:06 thru 08/28/23 06:46 Intake Total 1683.75 Output Total 3403 Balance -1719.25 RT Ventilator Mngmt (Last Documented) Ventilator Ordered Settings Respiratory Rate 20 08/28/23 07:30 Ventilator - PT Measurements Respiratory Rate 20 Coding Level of Care Code 30130 SUB INP/OBS CARE 2/35MIN Diagnoses Acute MD, anterolateral wall I21.09
[2023-08-28] MEDS ORDERED: ASPIRIN 81 MG ECTAB PO SCH (09:00)
[2023-08-28] MEDS ORDERED: FUROSEMIDE INJ 20 MG/2 ML VIAL IV ONE (10:40)
[2023-08-28] MEDS ORDERED: APIXABAN 5 MG TABLET PO SCH (10:45)
[2023-08-28 11:01] LABS: Basophils # (auto) 0.08 K/uL (0.00-0.20); Basophils % (auto) 0.7 %; Eosinophils % (auto) 1.6 %; Hematocrit (blood only) 44.6 % (42.0-52.0); Hemoglobin 15.3 g/dl (14.0-18.0); Immature Granulocytes # (auto) 0.04 K/uL (0.01-0.20); Immature Granulocytes % (auto) 0.3 %; Lymphocytes # (auto) 1.77 K/uL (1.20-3.40); Lymphocytes % (auto) 14.5 %; Mean Corpuscular Hemoglobin 28.8 pg (25.0-34.0); Mean Corpuscular Hgb Conc 34.3 g/dL (32.0-36.0); Mean Platelet Volume 10.4 fL (9.4-12.4); Monocytes # (auto) 1.57 K/uL (0.11-0.59); Monocytes % (auto) 12.8 %; Neutrophils # (auto) 8.57 K/uL (1.40-6.50); Neutrophils % (auto) 70.1 %; Platelet Count 203 K/uL (130-400); RDW Coefficient of Variation 13.2 % (11.5-14.5); RDW Standard Deviation 40.6 fL (36.4-46.3); Red Blood Count 5.31 M/uL (4.70-6.10); White Blood Count 12.23 K/ul (4.8-10.8)
[2023-08-28] MEDS: lisinopril 2.5 MG TAB PO SCH (11:08)
--- NOTE | 2023-08-28 11:28 | Cardiology Consultation ---
Date of Consultation August 28, 2023 Assessment & Plan (1) STEMI (ST elevation myocardial infarction): (2) Acute heart failure with reduced ejection fraction and diastolic dysfunction: (3) Ischemic cardiomyopathy: (4) LV (left ventricular) mural thrombus: (5) Dyslipidemia: Plan Results of echocardiogram discussed at length. Physical exam evidence of decompensated heart failure. Recommend discontinuation of IV fluids. 20 mg of intravenous Lasix will be given now. Anticoagulation indicated due to presence of LV apical thrombus. Use of warfarin versus off label use of Eliquis discussed with patient at length. He is agreeable to Eliquis 5 mg twice daily. Case discussed with interventional cardiology. Aspirin will be discontinued today. Will transition patient from Brilinta to Plavix this evening. Initiate goal-directed heart failure therapy. Continue metoprolol and add low- dose JONI inhibitor. Transition to metoprolol succinate prior to discharge. Continue high intensity statin therapy. Recommend LifeVest placement prior to discharge in the setting of severe ischemic cardiomyopathy. All questions answered to patient's satisfaction. He may be transferred to PCU at this time. History of Present Illness Reason for Consultation: ACS s/p PCI x2 Requesting Physician: Jessica Ortez PA-C Attending Physician: Jd Arguelles MD History of Present Illness 62-year-old male presented to the emergency in 08/27/2023 with chest pain. Diagnosed with anterior STEMI. Emergent cardiac catheterization demonstrating 100% thrombotic occlusion of the mid LAD as well as a 90% mid left circumflex stenosis. The right coronary artery demonstrated a chronic total occlusion in the midsegment. Drug-eluting stent implanted to both the LAD and left circumflex arteries. Echocardiogram performed this morning demonstrating a severe ischemic cardiomyopathy with evidence of LV apical thrombus. Patient feeling better post PCI. Denies recurrent chest discomfort or shortness of breath. Telemetry reveals sinus rhythm with occasional PVCs. No orthopnea, PND, or lower extremity edema. No palpitations, lightheadedness, or dizziness. Reports episode of chest discomfort occurring several days prior to admission which lasted less than 1 hour. Otherwise, denies any consistent, reproducible anginal symptoms in the weeks and months preceding current hospitalization. Allergies Allergy/AdvReac Type Severity Reaction Status Date / Time No Known Allergies Allergy Mild Unverified 12/30/19 00:08 Home Medications Medication Instructions Recorded Confirmed Type atorvastatin 20 mg tablet 20 mg PO DAILY 08/27/23 08/27/23 History Patient History Medical History Dyslipidemia Surgical History Hx of colostomy Due to diverticulitis Social History Smoking Status: Current every day smoker Tobacco Type: Cigarettes Cigarettes Per Day: 20; Second Hand Exposure: No; Do You Dip or Chew Tobacco: No; Hx Alcohol Use: Yes Alcohol type: wine and hard liquor Hx Substance Use: No Preferred Language: Czech Communication Ability: Effective [employer] Floorperson Required: No Beliefs That Will Affect Care: None marital status: Single Current Living Situation: Alone Feels Safe at Home: Yes Assistive Devices: Glasses Review of Systems Review of Systems: All systems reviewed & are unremarkable except as noted in Subjective Physical Exam Constitutional: well nourished; no acute distress Respiratory: no respiratory distress, no labored breathing and no retractions Auscultation: + rales (Bilateral bases); no rhonchi and no wheezes Cardiovascular: Rate/Rhythm: regular rate and regular rhythm Heart Sounds: normal S1 and normal S2; no murmur Gastrointestinal (Abdomen): Inspection/Auscultation: normal bowel sounds; abdomen not distended Percussion/Palpation: abdomen soft; abdomen nontender, no guarding and abdomen not rigid Neurologic: CN's II-XI intact bilaterally and moves all extremities; no focal motor deficits Psychiatric: A+Ox3, euthymic affect Results & Data Vital Signs (Past 12 Hours) Vital Signs Temp Pulse Resp BP Pulse Ox O2 Del Method 08/28/23 08:20 59 L 17 08/28/23 08:10 66 21 08/28/23 08:00 109/69 08/28/23 08:00 66 21 96 Room Air 08/28/23 07:50 75 21 08/28/23 07:40 78 17 08/28/23 07:38 36.5 C 08/28/23 07:30 77 20 08/28/23 07:20 68 18 96 08/28/23 07:10 75 16 94 08/28/23 07:00 63 25 H 94 Room Air 08/28/23 07:00 122/78 08/28/23 06:50 70 19 95 08/28/23 06:40 64 20 96 08/28/23 06:30 62 16 94 Room Air 08/28/23 06:30 119/77 08/28/23 06:20 63 19 95 08/28/23 06:10 66 19 96 08/28/23 06:01 64 14 96 08/28/23 06:01 108/81 08/28/23 05:01 119/74 08/28/23 05:01 62 18 94 08/28/23 04:30 59 L 14 94 08/28/23 04:30 123/75 08/28/23 04:00 36.6 C 08/28/23 04:00 61 14 94 08/28/23 04:00 122/75 08/28/23 03:30 111/73 08/28/23 03:30 88 31 H 96 08/28/23 03:00 120/79 08/28/23 03:00 56 L 13 96 08/28/23 02:30 66 14 94 08/28/23 02:30 119/77 08/28/23 02:00 117/78 08/28/23 02:00 61 14 94 08/28/23 01:30 118/83 08/28/23 01:30 63 15 93 08/28/23 01:00 125/77 08/28/23 01:00 63 13 93 08/28/23 00:30 138/85 08/28/23 00:30 62 17 96 08/28/23 00:00 36.4 C L 08/28/23 00:00 119/84 08/28/23 00:00 69 15 96 08/27/23 23:30 140/91 08/27/23 23:30 63 13 95 Laboratory Results Cardiac Enzymes 08/27/23 08/27/23 08/28/23 Range/Units 11:33 19:04 01:22 AST 154 H (13-39) U/L Troponin I High Sens 58212.6 H* D 74069.9 H* D 13644.8 H* D (0-20) pg/ml 08/28/23 Range/Units 04:47 AST (13-39) U/L Troponin I High Sens 07246.6 H* (0-20) pg/ml Lipids 08/27/23 Range/Units 11:33 Triglycerides 127 (0-150) mg/dl Cholesterol 148 (0-200) mg/dl HDL Cholesterol 34 mg/dl Cholesterol/HDL Ratio 4.4 (0-5) CBC 08/27/23 08/28/23 08/28/23 Range/Units 11:33 04:47 10:40 WBC 11.61 H 11.53 H 12.23 H (4.8-10.8) K/ul RBC 5.89 5.54 5.31 (4.70-6.10) M/uL Hgb 16.5 15.5 15.3 (14.0-18.0) g/dl Hct 50.8 47.6 44.6 (42.0-52.0) % Plt Count 218 214 203 (130-400) K/uL Neut # (Auto) 9.02 H 7.86 H 8.57 H (1.40-6.50) K/uL Lymph # (Auto) 1.50 2.11 1.77 (1.20-3.40) K/uL Starr # (Auto) 0.84 H 1.28 H 1.57 H (0.11-0.59) K/uL Eos # (Auto) 0.13 0.16 0.20 (0.00-0.50) K/uL Baso # (Auto) 0.07 0.07 0.08 (0.00-0.20) K/uL Comprehensive Metabolic Panel 08/27/23 08/28/23 Range/Units 11:33 04:47 Sodium 136 (136-145) mmol/L Potassium 4.2 4.0 (3.5-5.1) mmol/L Chloride 104 (98-107) mmol/L Carbon Dioxide 26 (21-32) mmol/L BUN 14 (6-23) mg/dl Creatinine 0.92 (0.6-1.4) mg/dl Glucose 111 H (70-99(Fasting)) mg/dl Calcium 8.6 (8.6-10.3) mg/dl AST 154 H (13-39) U/L Intake and Output 08/27/23 08/28/23 08/28/23 22:59 06:59 14:59 Intake Total 1683.75 / 1683.75 600 / 600 Output Total 1353 / 3403 1350 / 3403 Balance -1353 / -1719.25 333.75 / -1719.25 600 / 600 Intake: IV 983.75 / 983.75 600 / 600 Sodium Chloride 0.9% 1,000 ml @ 983.75 / 983.75 600 / 600 75 mls/hr IV .[id number] ULISSES Rx#: [id number] Oral 700 / 700 Output: Urine 1350 / 3400 1350 / 3400 # Bowel Movements 3 / 3 Other: Weight 100.2 kg Weight Measurement Method Built in [facility] (1) STEMI (ST elevation myocardial infarction) Involved coronary artery: LAD coronary artery Qualified Code(s): I21.02 - ST elevation (STEMI) myocardial infarction involving left anterior descending coronary artery
--- NOTE | 2023-08-28 15:12 | Hospitalist Progress Note ---
Date of Service August 28, 2023 Assessment & Plan (1) STEMI (ST elevation myocardial infarction): (2) Acute CO, anterolateral wall: Plan: 62-year-old male with PMH tobacco abuse, dyslipidemia, colostomy due to diverticulitis who presented with chest pain. EKG showed ST elevations in the anterior lateral leads and patient was taken urgently to the Financial Aids Officer. STEMI Acute heart failure with reduced EF and diastolic dysfunction secondary to above Ischemic cardiomyopathy Left ventricle mural thrombus --S/P Cardiac Cath: Severe multivessel coronary artery disease including chronic total occlusion of the RCA, severe stenosis in the circumflex and acute thro mbotic occlusion of the LAD. S/P PCI with drug-eluting stents to LAD and circumflex. --ECHO: Left ventricle systolic function is severely reduced. EF 35 to 30%. Large sized apical, septal, anteroseptal, anterior, posterior and lateral wall motion abnormality with hypokinesis to akinesis of the segments. There is a small apical thrombus. --Lipid panel within normal limits. -- Continue Plavix, Lipitor, metoprolol, lisinopril. --Also started on Eliquis --Monitor volume status, Lasix as needed --Appreciate cardiology, critical care input Transfer out of ICU today Plan to transition to metoprolol succinate on discharge Will need LifeVest placement prior to discharge Prediabetes HbA1c 6.3 Dyslipidemia Continue Lipitor next Tobacco use disorder Counseled to quit smoking DVT Px: Eliquis Admission and Anticipated Discharge Date Admission Date: August 27, 2023 Subjective Patient is seen and examined at bedside States feeling well today Chest pain completely resolved Denies any dyspnea, dizziness, nausea, vomiting, abdominal pain No other complaints Review of Systems Review of Systems: All systems reviewed & are unremarkable except as noted in Subjective Physical Exam Physical Exam: Physical Exam: Vitals signs as noted above General Appearance:Obese, no apparent distress Head: normocephalic, Atraumatic Eyes: normal inspection, EOMI Neck: supple, Trachea midline Respiratory/Chest: Normal breath sounds, CTA, No accessory muscle use Cardiovascular: S1, S2, No murmur Abdomen/GI:Soft, Non tender, Bowel sounds present Extremities/Musculoskeletal:normal inspection, Trace pedal edema Neurologic/Psych:AAOX3, grossly no focal neurological deficits Skin: normal color, warm Results & Data Results & Data Vital Signs (Past 12 Hours) Vital Signs Temp Pulse Resp BP Pulse Ox O2 Del Method 08/28/23 12:48 67 19 103/65 95 Room Air 08/28/23 12:48 36.5 C 08/28/23 08:20 59 L 17 08/28/23 08:10 66 21 08/28/23 08:00 109/69 08/28/23 08:00 66 21 96 Room Air 08/28/23 07:50 75 21 08/28/23 07:40 78 17 08/28/23 07:38 36.5 C 08/28/23 07:30 77 20 08/28/23 07:20 68 18 96 08/28/23 07:10 75 16 94 08/28/23 07:00 63 25 H 94 Room Air 08/28/23 07:00 122/78 08/28/23 06:50 70 19 95 08/28/23 06:40 64 20 96 08/28/23 06:30 62 16 94 Room Air 08/28/23 06:30 119/77 08/28/23 06:20 63 19 95 08/28/23 06:10 66 19 96 08/28/23 06:01 64 14 96 08/28/23 06:01 108/81 08/28/23 05:01 119/74 08/28/23 05:01 62 18 94 08/28/23 04:30 59 L 14 94 08/28/23 04:30 123/75 08/28/23 04:00 36.6 C 08/28/23 04:00 61 14 94 08/28/23 04:00 122/75 08/28/23 03:30 111/73 08/28/23 03:30 88 31 H 96 Laboratory Results Short CBC 08/28/23 08/28/23 Range/Units 04:47 10:40 WBC 11.53 H 12.23 H (4.8-10.8) K/ul Hgb 15.5 15.3 (14.0-18.0) g/dl Hct 47.6 44.6 (42.0-52.0) % Plt Count 214 203 (130-400) K/uL BMP 08/28/23 04:47 Sodium 136 Potassium 4.0 Chloride 104 Carbon Dioxide 26 BUN 14 Creatinine 0.92 Glucose 111 H Calcium 8.6 (1) STEMI (ST elevation myocardial infarction) Involved coronary artery: LAD coronary artery Qualified Code(s): I21.02 - ST elevation (STEMI) myocardial infarction involving left anterior descending coronary artery
[2023-08-28] MEDS ORDERED: CLOPIDOGREL BISULFATE 300 MG TAB PO ONE (20:00)
[2023-08-28] MEDS: APIXABAN 5 MG TABLET PO SCH (20:13)
--- NOTE | 2023-08-28 20:42 | Electrocardiogram Report ---
Test Reason : Blood Pressure : / mmHG Vent. Rate : 081 BPM Atrial Rate : 081 BPM P-R Int : 130 ms QRS Dur : 080 ms QT Int : 362 ms P-R-T Axes : 068 047 034 degrees QTc Int : 420 ms Sinus rhythm with occasional Premature ventricular complexes ST elevation consider anterolateral injury or acute infarct ACUTE MN / STEMI Abnormal ECG When compared with ECG of 30-DEC-2019 00:01, Premature ventricular complexes are now Present ST elevation now present in Anterolateral leads Confirmed by Toan Jiménez ([id number]) on 08/28/2023 8:41:53 PM Referred By: REFERRED SELF Confirmed By:Toan Jiménez
--- NOTE | 2023-08-28 20:46 | Electrocardiogram Report ---
Test Reason : Blood Pressure : / mmHG Vent. Rate : 069 BPM Atrial Rate : 069 BPM P-R Int : 136 ms QRS Dur : 076 ms QT Int : 446 ms P-R-T Axes : 059 058 050 degrees QTc Int : 477 ms Normal sinus rhythm Anterior infarct Lateral injury pattern ACUTE IN / STEMI Abnormal ECG When compared with ECG of 27-AUG-2023 09:26, (unconfirmed) No significant change Confirmed by Toan Jiménez ([id number]) on 08/28/2023 8:45:46 PM Referred By: REFERRED SELF Confirmed By:Toan Jiménez
--- NOTE | 2023-08-28 21:09 | Electrocardiogram Report ---
Test Reason : Blood Pressure : / mmHG Vent. Rate : 067 BPM Atrial Rate : 067 BPM P-R Int : 132 ms QRS Dur : 080 ms QT Int : 374 ms P-R-T Axes : 049 045 035 degrees QTc Int : 395 ms Sinus rhythm with Premature atrial complexes Low voltage QRS Anterolateral infarct (cited on or before 27-AUG-2023) Inferior injury pattern ACUTE MD / STEMI Abnormal ECG When compared with ECG of 27-AUG-2023 10:44, (unconfirmed) Premature atrial complexes are now Present Serial changes of evolving Anterior infarct Present Serial changes of evolving Anterolateral infarct Present Confirmed by Toan Jiménez ([id number]) on 08/28/2023 9:09:24 PM Referred By: REFERRED SELF Confirmed By:Toan Jiménez
--- NOTE | 2023-08-28 21:10 | Electrocardiogram Report ---
Test Reason : Blood Pressure : / mmHG Vent. Rate : 062 BPM Atrial Rate : 062 BPM P-R Int : 140 ms QRS Dur : 080 ms QT Int : 372 ms P-R-T Axes : 066 011 044 degrees QTc Int : 377 ms Normal sinus rhythm Anterolateral infarct (cited on or before 27-AUG-2023) ACUTE ME / STEMI Abnormal ECG When compared with ECG of 28-AUG-2023 00:09, (unconfirmed) Premature atrial complexes are no longer Present Confirmed by Toan Jiménez ([id number]) on 08/28/2023 9:09:50 PM Referred By: REFERRED SELF Confirmed By:Toan Jiménez
--- NOTE | 2023-08-28 21:12 | Electrocardiogram Report ---
Test Reason : Blood Pressure : / mmHG Vent. Rate : 063 BPM Atrial Rate : 120 BPM P-R Int : 000 ms QRS Dur : 096 ms QT Int : 378 ms P-R-T Axes : 071 018 041 degrees QTc Int : 386 ms Poor data quality, interpretation may be adversely affected Sinus rhythm Anterolateral infarct (cited on or before 27-AUG-2023) ACUTE CO / STEMI Abnormal ECG When compared with ECG of 28-AUG-2023 01:46, (unconfirmed) Serial changes of Anterior infarct Present Confirmed by Toan Jiménez ([id number]) on 08/28/2023 9:11:57 PM Referred By: REFERRED SELF Confirmed By:Toan Jiménez
[2023-08-29 05:14] LABS: Calcium 8.9 mg/dl (8.6-10.3); Creatinine Clr Calc Pharmacy 96.3 ml/min; Est GFR (African American) 94.4 ml/min; Est GFR (Non-African American) 81.4 ml/min
[2023-08-29] MEDS: ATORVASTATIN 40 MG TAB PO SCH (08:42)
[2023-08-29] MEDS: lisinopril 2.5 MG TAB PO SCH (08:42)
[2023-08-29] MEDS: APIXABAN 5 MG TABLET PO SCH ×2 (08:42→21:09)
[2023-08-29] MEDS: CLOPIDOGREL BISULFATE 75 MG TAB PO SCH (08:42)
[2023-08-29] MEDS: METOPROLOL TARTRATE 25 MG TAB PO SCH ×2 (08:43→21:09)
[2023-08-29 11:07] LABS: Basophils # (auto) 0.06 K/uL (0.00-0.20); Basophils % (auto) 0.5 %; Eosinophils # (auto) 0.27 K/uL (0.00-0.50); Eosinophils % (auto) 2.4 %; Hematocrit (blood only) 46.3 % (42.0-52.0); Hemoglobin 15.2 g/dl (14.0-18.0); Immature Granulocytes # (auto) 0.06 K/uL (0.01-0.20); Immature Granulocytes % (auto) 0.5 %; Lymphocytes # (auto) 2.13 K/uL (1.20-3.40); Lymphocytes % (auto) 18.8 %; Mean Corpuscular Hemoglobin 28.2 pg (25.0-34.0); Mean Corpuscular Hgb Conc 32.8 g/dL (32.0-36.0); Mean Corpuscular Volume 85.9 fL (80.0-100.0); Mean Platelet Volume 10.4 fL (9.4-12.4); Monocytes # (auto) 1.53 K/uL (0.11-0.59); Monocytes % (auto) 13.5 %; Neutrophils # (auto) 7.31 K/uL (1.40-6.50); Neutrophils % (auto) 64.3 %; Platelet Count 215 K/uL (130-400); RDW Coefficient of Variation 13.3 % (11.5-14.5); RDW Standard Deviation 41.4 fL (36.4-46.3); Red Blood Count 5.39 M/uL (4.70-6.10); White Blood Count 11.36 K/ul (4.8-10.8)
--- NOTE | 2023-08-29 11:58 | Cardiology Progress Note ---
Date of Service August 29, 2023 Assessment & Plan (1) STEMI (ST elevation myocardial infarction): (2) Acute heart failure with reduced ejection fraction and diastolic dysfunction: (3) Ischemic cardiomyopathy: (4) LV (left ventricular) mural thrombus: (5) Dyslipidemia: Plan Volume status improved after single dose of IV furosemide. Renal function remains stable. No need for additional IV diuretic therapy today. Consider addition of furosemide 20 mg daily as needed for weight gain/edema at discharge. Due to reduced LV systolic function in the setting of acute myocardial infarction, recommend LifeVest placement. Patient agreeable. Continue Eliquis, clopidogrel, lisinopril, atorvastatin, and beta-darrick. Transition metoprolol to tartrate to succinate formulation. Repeat echocardiogram in approximately 3 months after evidence-based heart failure medications are optimized. Consider transition to Entresto during outpatient visit. Smoking cessation advised. All questions answered to satisfaction of both the patient and his . Possible discharge in 24 to 48 hours. Admission and Anticipated Discharge Date Admission Date: August 27, 2023 Subjective Patient seen and examined at the bedside. Fluid balance -1600 cc after IV Lasix yesterday. Denies chest pain or shortness of breath. Requesting discharge. Telemetry reveals sinus rhythm with PVCs. Denies orthopnea, PND, or edema. present at bedside. Offers no additional concerns/complaints. Review of Systems Review of Systems: All systems reviewed & are unremarkable except as noted in Subjective Physical Exam Constitutional: well nourished; no acute distress Respiratory: no respiratory distress, no labored breathing and no retractions Auscultation: + rhonchi; no crackles, no rales and no wheezes Cardiovascular: Rate/Rhythm: regular rate and regular rhythm Heart Sounds: normal S1 and normal S2; no murmur Vessels: no JVD Extremities: no edema Gastrointestinal (Abdomen): Inspection/Auscultation: normal bowel sounds; abdomen not distended Percussion/Palpation: abdomen soft; abdomen nontender, no guarding and abdomen not rigid Neurologic: CN's II-XI intact bilaterally and moves all extremities; no focal motor deficits Psychiatric: A+Ox3, euthymic affect Results & Data Vital Signs (Past 12 Hours) Vital Signs Temp Pulse Resp BP Pulse Ox O2 Del Method 08/29/23 08:22 110/62 08/29/23 08:22 74 15 93 Room Air 08/29/23 08:22 36.7 C 08/29/23 08:13 63 08/29/23 04:07 36.6 C 08/29/23 04:02 102/50 L 08/29/23 04:02 61 17 95 Laboratory Results CBC 08/29/23 Range/Units 10:34 WBC 11.36 H (4.8-10.8) K/ul RBC 5.39 (4.70-6.10) M/uL Hgb 15.2 (14.0-18.0) g/dl Hct 46.3 (42.0-52.0) % Plt Count 215 (130-400) K/uL Neut # (Auto) 7.31 H (1.40-6.50) K/uL Lymph # (Auto) 2.13 (1.20-3.40) K/uL Heard # (Auto) 1.53 H (0.11-0.59) K/uL Eos # (Auto) 0.27 (0.00-0.50) K/uL Baso # (Auto) 0.06 (0.00-0.20) K/uL Comprehensive Metabolic Panel 08/29/23 Range/Units 03:58 Sodium 135 L (136-145) mmol/L Potassium 4.0 (3.5-5.1) mmol/L Chloride 103 (98-107) mmol/L Carbon Dioxide 24 (21-32) mmol/L BUN 16 (6-23) mg/dl Creatinine 1.00 (0.6-1.4) mg/dl Glucose 122 H (70-99(Fasting)) mg/dl Calcium 8.9 (8.6-10.3) mg/dl Intake and Output 08/28/23 08/29/23 08/29/23 22:59 06:59 14:59 Intake Total 150 / 900 150 / 900 Output Total 1000 / 1900 Balance -850 / -1000 150 / -1000 Intake: Oral 150 / 300 150 / 300 Output: Urine 999 / 0 Other: Weight 97.2 kg Weight Measurement Method Built in [facility] (1) STEMI (ST elevation myocardial infarction) Involved coronary artery: LAD coronary artery Qualified Code(s): I21.02 - ST elevation (STEMI) myocardial infarction involving left anterior descending coronary artery
--- NOTE | 2023-08-29 14:27 | XRay Report ---
XR shoulder LT min 2V routine CLINICAL HISTORY: Left shoulder pain. COMPARISON STUDY: None. FINDINGS: No fracture or dislocation within the left shoulder. The left clavicle is intact. Soft tiss ues are unremarkable. Mild degenerative changes within the glenohumeral and acromioclavicular joints. IMPRESSION: 1. No fracture or dislocation within the left shoulder. 2. Mild osteoarthritis. ACT 112: Negative or not required by law. Electronically signed by: Braulio Sparks M.D. 08/29/2023 2:25 PM
--- NOTE | 2023-08-29 16:07 | Orthopedic Consultation ---
Date of Consultation August 29, 2023 Assessment & Plan (1) Rotator cuff tear, left: by history patient has a chronic rotator cuff tear which is consistent with his radiographs. He has compensated range of motion with some weakness and has chronic pain. At this time he has had an acute MRI and is contraindicated to give an injection of steroid as this could exacerbate the myocardial infarction. It is also too soon since his last injection and these should only be administered every 3 to 4 months. He can take what ever pain medicine is recommended by his treating physician and have nonsurgical treatment and he can follow-up for chronic pain management with his regular physician when it is safe to resume injections per cardiology. History of Present Illness Reason for Consultation: left shoulder pain Attending Physician: Jd Arguelles MD History of Present Illness 62-year-old male admitted for acute myocardial infarction with chronic left shoulder pain. Allergies Allergy/AdvReac Type Severity Reaction Status Date / Time No Known Allergies Allergy Mild Unverified 12/30/19 00:08 Home Medications Medication Instructions Recorded Confirmed Type atorvastatin 20 mg tablet 20 mg PO DAILY 08/27/23 08/27/23 History Patient History Medical History Dyslipidemia Surgical History Hx of colostomy Due to diverticulitis Social History Smoking Status: Current every day smoker Tobacco Type: Cigarettes Cigarettes Per Day: 20; Second Hand Exposure: No; Do You Dip or Chew Tobacco: No; Hx Alcohol Use: Yes Alcohol type: wine and hard liquor Hx Substance Use: No Preferred Language: Burundian Communication Ability: Effective Stamp Pad Maker Required: No Beliefs That Will Affect Care: None marital status: Single Current Living Situation: Alone Feels Safe at Home: Yes Assistive Devices: None Review of Systems Review of Systems: patient's had chronic left shoulder pain and he has been going to [facility] office getting injections chronically. He said he gets lidocaine injections. Last injection he believes was in May. Patient has weakness overhead pain when he misses arm overhead but not much pain if he just has his arm at rest at the side. Last injection was June 28, 2023 after which he had Kenalog 40 mg bilateral shoulders. Physical Exam Physical Exam: Patient's range of motion is normal passively. Belly press test is negative external rotation strength is 4+ 5-/5. Abduction strength is 4+/5. Some pain with resisted strength testing. Results & Data Vital Signs (Past 12 Hours) Vital Signs Temp Pulse Resp BP Pulse Ox O2 Del Method 08/29/23 12:01 60 15 95 08/29/23 12:01 103/58 L 08/29/23 08:22 110/62 08/29/23 08:22 74 15 93 Room Air 08/29/23 08:22 36.7 C 08/29/23 08:13 63 08/29/23 04:07 36.6 C 08/29/23 04:02 102/50 L 08/29/23 04:02 61 17 95 Diagnostic Findings Radiographs demonstrate a keel shaped acromion process and AC joint osteoarthritis which could cause subacromial impingement and mild proximal migration of the humerus all consistent with rotator cuff tear.
--- NOTE | 2023-08-29 16:52 | Hospitalist Progress Note ---
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 EKG showed ST elevations in the anterior lateral leads and patient was taken urgently to the Manager Adult. STEMI Acute heart failure with reduced EF and diastolic dysfunction secondary to above Ischemic cardiomyopathy Left ventricle mural thrombus --S/P Cardiac Cath: Severe multivessel coronary artery disease including chronic total occlusion of the RCA, severe stenosis in the circumflex and acute thro mbotic occlusion of the LAD. S/P PCI with drug-eluting stents to LAD and circumflex. --ECHO: Left ventricle systolic function is severely reduced. EF 35 to 30%. Large sized apical, septal, anteroseptal, anterior, posterior and lateral wall motion abnormality with hypokinesis to akinesis of the segments. There is a small apical thrombus. --Lipid panel within normal limits. -- Continue Plavix, Lipitor, metoprolol, lisinopril. --Also started on Eliquis --Monitor volume status, Lasix as needed --Appreciate cardiology, critical care input Plan to transition to metoprolol succinate on discharge Will need LifeVest placement prior to discharge Needs repeat echo in 3 months May need Lasix as needed for edema, weight gain Left rotator cuff tear --Shoulder X ray:No fracture or dislocation within the left shoulder. Mild osteoarthritis. Appreciate orthopedics input Needs follow-up with orthopedics as outpatient for injections plan appropriate Prediabetes HbA1c 6.3 Dyslipidemia Continue Lipitor next Tobacco use disorder Counseled to quit smoking DVT Px: Eliquis Admission and Anticipated Discharge Date Admission Date: August 27, 2023 Subjective Patient is seen and examined at bedside Reports left shoulder pain which he attributes to chronic rotator cuff tear Otherwise feels well Denies any chest pain, dyspnea, dizziness, nausea, vomiting, abdominal pain No other complaints Review of Systems Review of Systems: All systems reviewed & are unremarkable except as noted in Subjective Physical Exam Physical Exam: Physical Exam: Vitals signs as noted above General Appearance:Obese, no apparent distress Head: normocephalic, Atraumatic Eyes: normal inspection, EOMI Neck: supple, Trachea midline Respiratory/Chest: Normal breath sounds, CTA, No accessory muscle use Cardiovascular: S1, S2, No murmur Abdomen/GI:Soft, Non tender, Bowel sounds present Extremities/Musculoskeletal:normal inspection, Trace pedal edema Neurologic/Psych:AAOX3, grossly no focal neurological deficits Skin: normal color, warm Results & Data Results & Data Vital Signs (Past 12 Hours) Vital Signs Temp Pulse Resp BP Pulse Ox O2 Del Method 08/29/23 12:01 60 15 95 08/29/23 12:01 103/58 L 08/29/23 08:22 110/62 08/29/23 08:22 74 15 93 Room Air 08/29/23 08:22 36.7 C 08/29/23 08:13 63 Laboratory Results Short CBC 08/29/23 Range/Units 10:34 WBC 11.36 H (4.8-10.8) K/ul Hgb 15.2 (14.0-18.0) g/dl Hct 46.3 (42.0-52.0) % Plt Count 215 (130-400) K/uL BMP 08/29/23 03:58 Sodium 135 L Potassium 4.0 Chloride 103 Carbon Dioxide 24 BUN 16 Creatinine 1.00 Glucose 122 H Calcium 8.9 (1) STEMI (ST elevation myocardial infarction) Involved coronary artery: LAD coronary artery Qualified Code(s): I21.02 - ST elevation (STEMI) myocardial infarction involving left anterior descending coronary artery
[2023-08-30 04:29] LABS: BUN Creatinine Ratio 21.6 (10-20); Calcium 8.8 mg/dl (8.6-10.3); Creatinine Clr Calc Pharmacy 81.8 ml/min; Est GFR (African American) 78.9 ml/min; Est GFR (Non-African American) 68.1 ml/min; Potassium 4.3 mmol/L (3.5-5.1)
[2023-08-30] MEDS: ATORVASTATIN 40 MG TAB PO SCH (08:00)
[2023-08-30] MEDS: APIXABAN 5 MG TABLET PO SCH (08:00)
[2023-08-30] MEDS: lisinopril 2.5 MG TAB PO SCH (08:01)
[2023-08-30] MEDS: CLOPIDOGREL BISULFATE 75 MG TAB PO SCH (08:01)
[2023-08-30] MEDS: METOPROLOL TARTRATE 25 MG TAB PO SCH (08:01)
--- NOTE | 2023-08-30 12:14 | Hospitalist Progress Note ---
Date of Service August 30, 2023 Assessment & Plan (1) STEMI (ST elevation myocardial infarction): (2) Acute NE, anterolateral wall: Plan: 62-year-old male with PMH tobacco abuse, dyslipidemia, colostomy due to diverticulitis who presented with chest pain. EKG showed ST elevations in the anterior lateral leads and patient was taken urgently to the Dry Mill Operator. STEMI Acute heart failure with reduced EF and diastolic dysfunction secondary to above Ischemic cardiomyopathy Left ventricle mural thrombus --S/P Cardiac Cath: Severe multivessel coronary artery disease including chronic total occlusion of the RCA, severe stenosis in the circumflex and acute thro mbotic occlusion of the LAD. S/P PCI with drug-eluting stents to LAD and circumflex. --ECHO: Left ventricle systolic function is severely reduced. EF 35 to 30%. Large sized apical, septal, anteroseptal, anterior, posterior and lateral wall motion abnormality with hypokinesis to akinesis of the segments. There is a small apical thrombus. --Lipid panel within normal limits. -- Continue Plavix, Lipitor, metoprolol, lisinopril. --Also started on Eliquis --Monitor volume status, Lasix as needed --Appreciate cardiology, critical care input Plan to transition to metoprolol succinate on discharge LifeVest in place Needs repeat echo in 3 months May need Lasix as needed for edema, weight gain Left rotator cuff tear --Shoulder X ray:No fracture or dislocation within the left shoulder. Mild osteoarthritis. Appreciate orthopedics input Needs follow-up with orthopedics as outpatient for injections when appropriate Prediabetes HbA1c 6.3 Dyslipidemia Continue Lipitor next Tobacco use disorder Counseled to quit smoking DVT Px: Eliquis Disposition Home Admission and Anticipated Discharge Date Admission Date: August 27, 2023 Subjective Patient is seen and examined at bedside States feeling well Reports chronic left shoulder pain No other complaints Discussed with cardiology today Also denies any chest pain, dyspnea, dizziness, nausea, vomiting, abdominal pain Plan to be discharged home. Review of Systems Review of Systems: All systems reviewed & are unremarkable except as noted in Subjective Physical Exam Physical Exam: Physical Exam: Vitals signs as noted above General Appearance:Obese, no apparent distress Head: normocephalic, Atraumatic Eyes: normal inspection, EOMI Neck: supple, Trachea midline Respiratory/Chest: Normal breath sounds, CTA, No accessory muscle use Cardiovascular: S1, S2, No murmur, + LifeVest in place Abdomen/GI:Soft, Non tender, Bowel sounds present Extremities/Musculoskeletal:normal inspection, Trace pedal edema Neurologic/Psych:AAOX3, grossly no focal neurological deficits Skin: normal color, warm Results & Data Results & Data Vital Signs (Past 12 Hours) Vital Signs Temp Pulse Resp BP Pulse Ox O2 Del Method 08/30/23 11:20 63 08/30/23 08:00 36.3 C L 71 18 121/63 94 Room Air 08/30/23 04:00 61 17 93 08/30/23 04:00 36.4 C L 101/61 08/30/23 02:00 60 20 Laboratory Results BMP 08/30/23 03:43 Sodium 135 L Potassium 4.3 Chloride 104 Carbon Dioxide 25 BUN 25 H Creatinine 1.16 Glucose 105 H Calcium 8.8 (1) STEMI (ST elevation myocardial infarction) Involved coronary artery: LAD coronary artery Qualified Code(s): I21.02 - ST elevation (STEMI) myocardial infarction involving left anterior descending coronary artery
--- NOTE | 2023-08-30 12:39 | Discharge Summary ---
Date of Service August 30, 2023 Admission HPI Per Admitting Provider 62-year-old male with PMH dyslipidemia, colostomy secondary to diverticulitis, and other problems listed below who presents to the ED for evaluation of chest pain. History obtained from the patient and review of outpatient PCP records. Patient reports he has been experiencing episodes of chest pain over the past 3 days. Reports symptoms would last for about 15 to 30 minutes and resolve on their own. States pain was midsternal and severe. Reports some radiation up into the neck. Today, patient had associated diaphoresis. He called EMS and was brought to the ED for further evaluation. EKG showed ST elevation in the anterior lateral leads. Heart alert was called and patient was taken urgently to the Hand Plate Stacker. He received SANJIV to the mid LAD and balloon angioplasty and SANJIV to the mid circumflex. Patient was taken to the ICU post procedure. Patient reports he is currently chest pain-free. Offers no complaints at this time. Admission Exam Per Admitting Provider Constitutional: WD/WN, vitals as above no acute distress Eyes: PERRL, conjunctivae normal, anicteric sclerae ENMT: external ear and nose normal, oropharynx normal Respiratory: normal respiratory effort, lungs clear to auscultation Cardiovascular: Rate/Rhythm: regular rate and regular rhythm Vessels: normal peripheral pulses Extremities: no edema Radial band in place to right wrist, CSM checks intact to right hand Gastrointestinal (Abdomen): normal bowel sounds, soft, nontender, no hepatosplenomegaly Colostomy in place Musculoskeletal: no cyanosis or clubbing, extremities motor strength 5/5 Skin: no rashes, warm and dry Neurologic: PERRL, EOMI, accommodation nl, no face palsy, no dysarthria Psychiatric: A+Ox3, euthymic affect Principal Diagnosis ST elevation myocardial infarction Ischemic cardiomyopathy Left ventricle mural thrombus Prediabetes Discharge Data Allergies Allergy/AdvReac Type Severity Reaction Status Date / Time No Known Allergies Allergy Mild Unverified 12/30/19 00:08 Consultations 08/27/23 09:53 ED Decision to Admit Stat 08/27/23 10:06 Consult Room Service Waiter Routine 08/27/23 10:42 Consult Cardiac Rehabilitation Routine 08/28/23 01:38 Consult Cardiology Routine 08/29/23 12:57 Consult Orthopedic Surgery Routine Procedures Performed Operation Date: 08/27/23 10:00 Actual Procedures p Cineradiography w/Routine Exam - Hernando Reyes MD, PhD p Aspiration/PCI w/SANJIV for Stemi - Hernando Reyes MD, PhD p Drug Eluting Stent SGl Vessel - Hernando Reyes MD, PhD s Drug Eluting Stent each ADDTL Vessel - Hernando Reyes MD, PhD s Cath, Coronaries ONLY (no LV) - Hernando Reyes MD, PhD Laboratory Results WBC 11.36 K/ul (4.8-10.8) H 08/29/23 10:34 RBC 5.39 M/uL (4.70-6.10) 08/29/23 10:34 Hgb 15.2 g/dl (14.0-18.0) 08/29/23 10:34 Hct 46.3 % (42.0-52.0) 08/29/23 10:34 MCV 85.9 fL (80.0-100.0) 08/29/23 10:34 MCH 28.2 pg (25.0-34.0) 08/29/23 10:34 MCHC 32.8 g/dL (32.0-36.0) 08/29/23 10:34 RDW Std Deviation 41.4 fL (36.4-46.3) 08/29/23 10:34 RDW Coeff of Kosta 13.3 % (11.5-14.5) 08/29/23 10:34 Plt Count 215 K/uL (130-400) 08/29/23 10:34 MPV 10.4 fL (9.4-12.4) 08/29/23 10:34 Immature Gran % (Auto) 0.5 % 08/29/23 10:34 Neut % (Auto) 64.3 % 08/29/23 10:34 Lymph % (Auto) 18.8 % 08/29/23 10:34 Carter % (Auto) 13.5 % 08/29/23 10:34 Eos % (Auto) 2.4 % 08/29/23 10:34 Baso % (Auto) 0.5 % 08/29/23 10:34 Neut # (Auto) 7.31 K/uL (1.40-6.50) H 08/29/23 10:34 Lymph # (Auto) 2.13 K/uL (1.20-3.40) 08/29/23 10:34 Carter # (Auto) 1.53 K/uL (0.11-0.59) H 08/29/23 10:34 Eos # (Auto) 0.27 K/uL (0.00-0.50) 08/29/23 10:34 Baso # (Auto) 0.06 K/uL (0.00-0.20) 08/29/23 10:34 Immature Gran # (Auto) 0.06 K/uL (0.01-0.20) 08/29/23 10:34 Toxic Vacuolation 1+ 08/27/23 09:31 PT 10.7 Seconds (9.0-12.0) 08/27/23 09:31 INR 1.0 (0.9-1.1) 08/27/23 09:31 APTT 29 Seconds (21-31) 08/27/23 09:31 PTT Ratio 1.0 08/27/23 09:31 Activ Coag Time Kaolin 228 SECONDS (94-140) H 08/27/23 10:16 Sodium 135 mmol/L (136-145) L 08/30/23 03:43 Potassium 4.3 mmol/L (3.5-5.1) 08/30/23 03:43 Chloride 104 mmol/L (98-107) 08/30/23 03:43 Carbon Dioxide 25 mmol/L (21-32) 08/30/23 03:43 Anion Gap 6 (3-11) 08/30/23 03:43 BUN 25 mg/dl (6-23) H 08/30/23 03:43 Creatinine 1.16 mg/dl (0.6-1.4) 08/30/23 03:43 Est Cr Clr Drug Dosing 81.8 ml/min 08/30/23 03:43 Est GFR ( Amer) 78.9 ml/min 08/30/23 03:43 Est GFR (Non-Af Amer) 68.1 ml/min 08/30/23 03:43 BUN/Creatinine Ratio 21.6 (10-20) H 08/30/23 03:43 Glucose 105 mg/dl (70-99(Fasting)) H 08/30/23 03:43 POC Glucose 120 mg/dl (70-99) H 08/28/23 00:15 Estimat Average Glucose 134 mg/dl 08/27/23 11:33 Hemoglobin A1c 6.3 % (4.5-5.6) H 08/27/23 11:33 Calcium 8.8 mg/dl (8.6-10.3) 08/30/23 03:43 Phosphorus 2.6 mg/dl (2.5-4.9) 08/28/23 04:47 Magnesium 2.0 mg/dl (1.7-2.4) 08/30/23 03:43 Total Bilirubin 0.3 mg/dl (0.2-1.0) 08/27/23 09:31 AST 154 U/L (13-39) H 08/27/23 11:33 ALT 26 U/L (7-52) 08/27/23 09:31 Alkaline Phosphatase 82 U/L (34-104) 08/27/23 09:31 Troponin I High Sens 93091.6 pg/ml (0-20) H* 08/28/23 04:47 Total Protein 7.0 gm/dl (6.0-8.3) 08/27/23 09:31 Albumin 3.9 gm/dl (3.4-5.0) 08/27/23 09:31 Globulin 3.1 gm/dl (2.5-4.0) 08/27/23 09:31 Albumin/Globulin Ratio 1.3 (0.9-2) 08/27/23 09:31 Triglycerides 127 mg/dl (0-150) 08/27/23 11:33 Cholesterol 148 mg/dl (0-200) 08/27/23 11:33 LDL Cholesterol, Calc 89 mg/dl 08/27/23 11:33 VLDL Cholesterol, Calc 25 mg/dl (0-30) 08/27/23 11:33 HDL Cholesterol 34 mg/dl 08/27/23 11:33 Cholesterol/HDL Ratio 4.4 (0-5) 08/27/23 11:33 Lipase 40 U/L (11-82) 08/27/23 09:31 Nasal Screen MRSA (PCR) Negative (Negative) 08/27/23 12:35 SARS-CoV-2, RNA, NAAT NEGATIVE (NEGATIVE) 08/27/23 12:45 Impressions Chest X-Ray 08/27/23 09:24 SINGLE VIEW CHEST CLINICAL HISTORY: Atypical chest pain FINDINGS: An AP, portable, upright chest radiograph is compared to study dated 12/30/2019. The examination is degraded by portable technique and apical lordotic positioning. The cardiomediastinal silhouette is unremarkable. Chronic interstitial thickening is similar to previous. There is mild bibasilar scarring/atelectasis. The lungs and pleural spaces are otherwise clear. No pneumothorax is seen. The bony thorax is grossly intact. IMPRESSION: No active disease in the chest. ACT 112: Negative or not required by law. Electronically signed by: Garret Mccrary M.D. 08/27/2023 11:16 AM Shoulder X-Ray 08/29/23 12:59 XR shoulder LT min 2V routine CLINICAL HISTORY: Left shoulder pain. COMPARISON STUDY: None. FINDINGS: No fracture or dislocation within the left shoulder. The left clavicle is intact. Soft tissues are unremarkable. Mild degenerative changes within the glenohumeral and acromioclavicular joints. IMPRESSION: 1. No fracture or dislocation within the left shoulder. 2. Mild osteoarthritis. ACT 112: Negative or not required by law. Electronically signed by: Braulio Sparks M.D. 08/29/2023 2:25 PM Ordered Studies 08/27/23 09:22 CL Cath Imgs for PACS use only Stat Hospital Course (1) STEMI (ST elevation myocardial infarction): (2) Acute HI, anterolateral wall: 62-year-old male with PMH tobacco abuse, dyslipidemia, colostomy due to diverticulitis who presented with chest pain. EKG showed ST elevations in the anterior lateral leads and patient was taken urgently to the Hand Plate Stacker. STEMI Acute heart failure with reduced EF and diastolic dysfunction secondary to above Ischemic cardiomyopathy Left ventricle mural thrombus --S/P Cardiac Cath: Severe multivessel coronary artery disease including chronic total occlusion of the RCA, severe stenosis in the circumflex and acute thrombotic occlusion of the LAD. S/P PCI with drug-eluting stents to LAD and circumflex. --ECHO: Left ventricle systolic function is severely reduced. EF 35 to 30%. Large sized apical, septal, anteroseptal, anterior, posterior and lateral wall motion abnormality with hypokinesis to akinesis of the segments. There is a small apical thrombus. --Lipid panel within normal limits. -- Continue Plavix, Lipitor, metoprolol, lisinopril. --Also started on Eliquis --Monitor volume status, Lasix as needed --Appreciate cardiology, critical care input Plan to transition to metoprolol succinate on discharge LifeVest in place Needs repeat echo in 3 months May need Lasix as needed for edema, weight gain Left rotator cuff tear --Shoulder X ray:No fracture or dislocation within the left shoulder. Mild ost eoarthritis. Appreciate orthopedics input Needs follow-up with orthopedics as outpatient for injections when appropriate Prediabetes HbA1c 6.3 Dyslipidemia Continue Lipitor next Tobacco use disorder Counseled to quit smoking DVT Px: Eliquis Disposition Home Total Time Total Time Spent Total Time Spent (In Minutes): 65 minutes Discharge Plan Discharge Items Patient Disposition: Home - Self-Care Reason For Visit: STEMI Discharge Diagnosis: ST elevation myocardial infarction Ischemic cardiomyopathy Left ventricle mural thrombus Prediabetes Activity: Per Instructions section Lifting: No more than 5 pounds Exercise/Sports: Wait until after follow-up appointment Non-emergency contact: Primary Care Provider and Stereo Operator Call non-emergency contact if: you have any medication questions, your symptoms worsen, your pain is concerning for you and you have a fever Follow-up/Referrals: Suleiman Giraldo DO [Stereo Operator] - (The Cardiology office will contact you for a follow up appointment.) Becca Walter MD [Outside Practitioners] - (Date & Time 09/05/2023 11:00 AM Provider Becca Walter MD Department [facility] ) Diet: Carb Consistent or DM2 and Heart Healthy Addtl Attending Provider Instructions: Follow-up with your primary care physician on 09/05/2023 11:00 AM Follow-up with your logistics system engineer Dr. Giraldo as advised --- Use LifeVest as recommended until further instructions from your logistics system engineer. --You will need repeat echocardiogram in 3 months. -- Quit smoking tobacco as advised. Seek immediate medical attention if your symptoms reoccur or worsen Please take all medications as instructed on discharge list below. Please call if you have any questions or problems. You can reach a [facility] hospitalist on duty at [facility] 24 hours a day by calling [phone] Home Care: * Take your medications exactly as directed. Don't skip doses. * Remember that recovery after a heart attack takes time. Plan to rest for at lease 4-8 weeks while you recover. Then return to normal activity when your doctor says it's okay. * Ask your doctor about joining a heart rehabilitation program. * Tell your doctor if you are feeling depressed. Feelings of sadness are common after a heart attack, but it is important that you speak to someone if you are feeling overwhelmed by these feelings. * If you are having chest pain, call 911 for an ambulance. Do NOT drive yourself to the hospital. * Ask your family members to learn CPR. * Learn to take your own blood pressure and pulse. Keep a record of your results. Ask your doctor when you should seek emergency medical attention. He or she will tell you which blood pressure reading is dangerous. Lifestyle Changes: * Maintain a healthy weight. Get help to lose any extra pounds. * Cut back on salt. * Limit canned, dried, packaged, and fast foods. * Don't add salt to your food. * Season foods with herbs instead of salt when you cook. * Break the smoking habit. Enroll in a stop-smoking program to improve your chances of success. * Limit fatty foods. * Ask your doctor about having your lipid levels checked regularly. * Build up your activity according to your doctor's recommendation. * Ask your doctor when it's okay to resume sexual activity. * Tell your doctor about any erectile dysfunction (ED) medication you are taking. Some ED medications are not safe if you take certain heart medications. * Try to manage stress. Follow Up: It is important for you to keep your follow up appointments with your medical provider. Addtl Mud Mixer Provider Instructions: Call your Primary Care doctor if any of the following symptoms or problems start or get worse: * Shortness of breath or difficulty breathing * Wake up at night short of breath * Chest pain * Cough * Swelling of your hands, feet, or legs * More fatigued or tired with your normal activity * Palpitations - sudden fast heart beats WEIGHT * Weigh yourself every morning after using the bathroom. * Use the same scale. * Wear the same amount of clothing. * Write your weight down on a chart. * Call your Primary Care doctor if you gain more than 2-3 pounds in 1-2 days. MEDICATIONS * Use this discharge instruction sheet for medication instructions. * Take your medications at the time your doctor ordered. * Do not skip a dose of your medicines. * If you miss a dose of medicine, take it as soon as possible, but DO NOT DOUBLE A DOSE. * Read your medicine information when you get home. * Know all of the side effects of your medicine. If in doubt, ask your pharmacist * Call your Primary Care doctor's office if you have any side effects. * Be sure all of your doctors know what medicine and herbs you take (including cold, flu, and herbal medicine). Take the following with you to your follow-up doctor appointments: * Weight Chart * Medication List * List of questions Do not drink excessive alcohol, beer or wine. Pending Studies at Discharge: No Stand-Alone Forms: My [employer], Smoking Cessation Medications and DC Order Prescriptions: New atorvastatin 40 mg Tablet 40 mg PO QAM Qty: 30 1RF clopidogrel 75 mg Tablet 75 mg PO QAM Qty: 30 1RF lisinopril 2.5 mg Tablet 2.5 mg PO QAM Qty: 30 1RF Eliquis 5 mg Tablet 5 mg PO BID Qty: 60 1RF metoprolol succinate 50 mg tablet extended release 24 hr 50 mg PO DAILY Qty: 30 1RF furosemide [Lasix] 20 mg tablet 20 mg PO Q2D PRN (Reason: edema) Qty: 30 0RF Discontinued atorvastatin 20 mg tablet 20 mg PO DAILY Discharge Orders: Discharge Order (Routine); Ordered 08/30/23 Ordered By: Jd Gutierrez/Other Patient Handouts: Prediabetes, 5 Steps for Eating Healthier Admission Data Admit Date/Time: 08/27/23 10:05 Attending Provider: Jd Arguelles Admit Provider: Jd Arguelles Primary Care Provider: Enid Paul Other Providers: Jd Arguelles; Ambrose Cruz; Ira Campos; Hernando Shipley; Duncan Bowden; Suleiman Giraldo; Margarito Costello; Benjamín Sykes; Namita Reyes; Amy Oconnell; Ira Funez; Damian [place]; Tony Billy; Ayala Schaefer; [place]; Licha Bond; Gabriel Landrum; Ambrose Townsend; Marco Ward; Tanner Doherty; Caroline Irby; Suleiman Isbell; Chantal Rodriguez; Nader Coronado; Sebastian Jean; Benjamín Doherty; Patrick Artis; Sebastian Franco; Margarito Larios; Chris Rooney; Preston Lewis; Masood Granger; Chantal Segal; Robbie Cerna; Raymundo Ramey; Nemo Shin; Liu Blanco; Baldomero Gómez; Brooke Trinidad; Bird Vera; Vicki Acevedo; Jannie Ocampo
--- NOTE | 2023-08-30 14:21 | Cardiology Progress Note ---
Date of Service August 30, 2023 Assessment & Plan (1) STEMI (ST elevation myocardial infarction): (2) Acute heart failure with reduced ejection fraction and diastolic dysfunction: (3) Ischemic cardiomyopathy: (4) LV (left ventricular) mural thrombus: (5) Dyslipidemia: Plan Volume status improved after single dose of IV furosemide. Renal function remains stable. At ddition of furosemide 20 mg daily as needed for weight gain/edema. Patient fitted for LifeVest 08/29/2023. Stressed importance of continuing anticoagulation and antiplatelet therapy. Continue Eliquis, clopidogrel, lisinopril, atorvastatin, and metoprolol succinate. Repeat echocardiogram in approximately 3 months after optimization of evidence- based heart failure medical therapy. Consider transition to Entresto during outpatient visit. Smoking cessation advised. Will arrange cardiac rehab during follow-up appointment in 1 week. All questions answered to patient's satisfaction. No further inpatient cardiac testing or intervention recommended at this time. I will arrange for outpatient cardiology follow-up in 1 week. Admission and Anticipated Discharge Date Admission Date: August 27, 2023 Subjective Patient seen and examined at the bedside. Anxious for discharge. Feeling well today. Denies chest pain or shortness of breath. No orthopnea, PND, or lower extremity edema. Fitted for LifeVest yesterday. Telemetry is sinus rhythm. No ventricular dysrhythmia. Review of Systems Review of Systems: All systems reviewed & are unremarkable except as noted in Subjective Physical Exam Constitutional: well nourished; no acute distress Respiratory: no respiratory distress, no labored breathing and no retractions Auscultation: no crackles, no rales, no rhonchi and no wheezes Cardiovascular: Rate/Rhythm: regular rate and regular rhythm Heart Sounds: normal S1 and normal S2; no murmur Vessels: no JVD Extremities: no edema Gastrointestinal (Abdomen): Inspection/Auscultation: normal bowel sounds; abdomen not distended Percussion/Palpation: abdomen soft; abdomen nontender, no guarding and abdomen not rigid Neurologic: CN's II-XI intact bilaterally and moves all extremities; no focal motor deficits Psychiatric: A+Ox3, euthymic affect Results & Data Vital Signs (Past 12 Hours) Vital Signs Temp Pulse Pulse Pulse Resp BP BP 08/30/23 12:52 36.3 C L 74 69 18 112/74 08/30/23 11:20 63 08/30/23 08:00 36.3 C L 71 18 121/63 08/30/23 04:00 61 17 08/30/23 04:00 36.4 C L 101/61 BP Pulse Ox O2 Del Method 08/30/23 12:52 119/71 94 08/30/23 11:20 08/30/23 08:00 94 Room Air 08/30/23 04:00 93 08/30/23 04:00 Laboratory Results Comprehensive Metabolic Panel 08/30/23 Range/Units 03:43 Sodium 135 L (136-145) mmol/L Potassium 4.3 (3.5-5.1) mmol/L Chloride 104 (98-107) mmol/L Carbon Dioxide 25 (21-32) mmol/L BUN 25 H (6-23) mg/dl Creatinine 1.16 (0.6-1.4) mg/dl Glucose 105 H (70-99(Fasting)) mg/dl Calcium 8.8 (8.6-10.3) mg/dl Intake and Output 08/29/23 08/30/23 08/30/23 22:59 06:59 14:59 Intake Total 120 / 120 Balance 120 / -180 Intake: Oral 120 / 120 Other: # Unmeasured Voids 3 2 Weight 97.2 kg Patient Weight 08/31/23 06:59 Weight 97.2 kg (1) STEMI (ST elevation myocardial infarction) Involved coronary artery: LAD coronary artery Qualified Code(s): I21.02 - ST elevation (STEMI) myocardial infarction involving left anterior descending coronary artery
== END 2023-08-30 13:15 | disposition home or self-care (01) | DRG 321 ==
LOC: ED 09:21 → 1E 09:37 → CC 09:37 → 1E 10:05
PROC: CLB.CCO (2023-08-27 10:00)